=== PATIENT | male | born 1970 | race Caucasian/White ===

== ENCOUNTER 2016-11-24 06:17 | Day surgery (SDC) | payer BC, OTHER ==
[2016-11-19 08:43] VITALS: BMI 37.7
[~2016-11-24 06:17] MED LIST: LACTATED RINGERS 1,000 ML IV SCH
[2016-11-24 06:28] VITALS: RESP 18; TEMP 98
[2016-11-24] MEDS ORDERED: LACTATED RINGERS 1,000 ML IV ONE (06:35)
[2016-11-24] MEDS ORDERED: LIDOCAINE 1% 20 ML VIAL (10MG/ML) FOR IV START INTRADERMA ONE (06:35)
[2016-11-24] MEDS ORDERED: MIDAZOLAM 2 MG/2 ML VIAL ONE (07:12)
[2016-11-24] MEDS ORDERED: TRIAMCINOLONE ACETONIDE 40 MG/ML 1 ML VIAL ONE (07:12)
[2016-11-24] MEDS ORDERED: fentaNYL (PF) 50 MCG/ML 2 ML AMP ONE (07:12)
[2016-11-24] MEDS ORDERED: BUPIVACAINE (PF) 0.75% 30 ML VIAL ONE (07:12)
--- NOTE | 2016-11-24 07:27 | P.PCN ---
Date of Procedure: 11/24/16 Procedure(s) Performed: Pre-operative diagnosis: 1- Bilateral occipital neuralgea Post Operative Diagnosis 1- Bilateral occipital neuralgea Procedure: 1- Bilateral occipital nerve block ANESTHESIA: Conscious sedation with Versed 2 mg and fentanyl 100 micrograms EBL: Minimal PROCEDURE INDICATION: The patient with neck pain and headache secondary to occipital neuralgea unresponsive to conservative treatments. PROCEDURE DESCRIPTION / TECHNIQUE: The patient was seen and identified in the preoperative area. Risks, benefits, complications, and alternatives were discussed with the patient, the patient agreed to proceed with the procedure and signed the consent. IV was started. Vital signs remained stable throughout the procedure. Patient was taken to the OR and time out was completed. The patient was placed in the pron (sitting ) position on the procedure table. A pillow was placed under the patients chest to increase the cervical interlaminar space. The cervical area and right occiptial area were prepped with alcohol swab. Critical pause was taken. Vital signs were closely monitored during the procedure. Conscious sedation was used during the procedure to decrease patients anxiety. The right occiptal ridge was palpated and was then accessed with a 25 G needle. Then after negative aspiration, 6 ml of the block solution containing 6 ml of PF Buvicaine 0.75% and Kenalog 40 mg was injected. Needle was withdrawn intact. Then the same procedure was repeated on the left side and related the left occipital nerve block, after negative aspiration 6 mL of the block solution containing ropivacaine 0.75% and 40 mg of Kenalog injected after negative aspiration Patient tolerated procedure well. No acute complications. And he will follow up in the pain clinic in a few weeks to repeat the injection
[2016-11-24 07:58] VITALS: BP 109/63; PULSE 62
[2016-11-24] MEDS ORDERED: IV FLUID CONTINUATION 1,000 ML IV ONE (08:04)
== END 2016-11-24 08:05 | disposition home or self-care (01) ==
LOC: ORPAIN 06:17
PROVIDERS: ATTEND Specialist
DX: M54.81 Occipital neuralgia (principal); Z88.1 Allergy status to other antibiotic agents
CPT/HCPCS: 64405; J2250; J3301; J3010

== ENCOUNTER 2016-11-29 08:40 | Emergency (ER) | payer BC, OTHER ==
[2016-11-29 08:46] VITALS: RESP 18
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
--- NOTE | 2016-11-29 09:27 | XR ---
EXAMINATION TYPE: XR chest 2V DATE OF EXAM: 11/29/2016 9:19 AM COMPARISON: None HISTORY: 46-year-old male with a chest pain TECHNIQUE: PA and lateral views FINDINGS: The cardiomediastinal silhouette, aorta, and pulmonary vasculature are within normal limits. Some min imal strandy basilar atelectasis. Otherwise, lungs and pleural spaces are clear. IMPRESSION: No acute cardiopulmonary process.
[2016-11-29 09:28] LABS: Basophils # (A) 0.1 k/uL (0-0.2); Basophils % (A) 1 %; CHCM 36.2; Eosinophils # (A) 0.1 k/uL (0-0.7); Eosinophils % (A) 1 %; HCT 47.5 % (39.0-53.0); HDW 3.19; HGB 16.4 gm/dL (13.0-17.5); Luc # (Auto) 0.14; Luc % (Auto) 1; Lymphocytes # (A) 1.7 k/uL (1.0-4.8); Lymphocytes % (A) 16 %; MCH 27.9 pg (25.0-35.0); MCHC 34.6 g/dL (31.0-37.0); MCV 80.7 fL (80.0-100.0); Mean Platelet Volume 7.2; Monocytes # (A) 0.5 k/uL (0-1.0); Monocytes % (A) 5 %; Neutrophils % (A) 76 %; RBC 5.89 m/uL (4.30-5.90); RDW 13.8 % (11.5-15.5); WBC 10.5 k/uL (3.8-10.6); WBC (Perox) 11.06
[2016-11-29 09:40] LABS: ALT 76 U/L (21-72); AST 20 U/L (17-59); Alkaline Phosphatase 71 U/L (38-126); Anion Gap 13 mmol/L; Blood Urea Nitrogen 14 mg/dL (9-20); Calcium 9.2 mg/dL (8.4-10.2); Carbon Dioxide 23 mmol/L (22-30); Chloride 106 mmol/L (98-107); Glucose 98 mg/dL (74-99); Magnesium 2.1 mg/dL (1.6-2.3); Non-African American GFR(MDRD) >60 (>60 ml/min/1.73 sqM); Partial Thromboplastin Time 26.1 sec (22.0-30.0); Potassium 4.2 mmol/L (3.5-5.1); Prothrombin Time 10.2 sec (9.0-12.0); Sodium 142 mmol/L (137-145); Total Bilirubin 0.7 mg/dL (0.2-1.3); Total Protein 7.7 g/dL (6.3-8.2)
[2016-11-29 09:55] LABS: Creatine Kinase 80 U/L (55-170)
[2016-11-29 10:08] LABS: Creatine Kinase MB 1.4 ng/mL (0.0-2.4); Troponin I <0.012 ng/mL (0.000-0.034)
[2016-11-29 10:23] VITALS: PULSE 52
[2016-11-29 11:06] VITALS: BP 123/58; TEMP 98.4
== END 2016-11-29 11:06 | disposition home or self-care (01) ==
LOC: EC 08:40
DX: R07.89 Other chest pain (principal); I10 Essential (primary) hypertension; M19.90 Unspecified osteoarthritis, unspecified site; Z79.899 Other long term (current) drug therapy; Z88.0 Allergy status to penicillin; Z87.891 Personal history of nicotine dependence
CPT/HCPCS: 36415; 71020; 80053; 82550; 82553; 83690; 83735; 83880; 84484; 85025; 85379; 85610; 85730; 93005; 99285

== ENCOUNTER → 2016-12-22 | Outpatient (CLI) | payer BC, OTHER ==
--- NOTE | 2016-12-22 09:43 | MR ---
EXAMINATION TYPE: MR cervical spine wo con DATE OF EXAM: 12/22/2016 7:14 AM COMPARISON: NONE HISTORY: 46-year-old male with chronic posttraumatic headaches TECHNIQUE: Multiplanar, multisequence images of the cervical spine were acquired. FINDINGS: No craniocervical junction abnormality, predental space widening, or prevertebral soft tissue swellin g. Straightening of the normal cervical lordosis with preserved alignment. Variable mild intervertebral disc desiccation from C2 through C7 levels and very mild posterior disc bulges. Additional mild scattered facet and uncovertebral joint degenerative change. Mild heterogeneity of marrow signal without suspicious bone marrow placement. At C2-C3, very mild facet degenerative change without significant spinal canal or foraminal stenosis. At C3-C4, mild facet degenerative change without significant spinal canal or foraminal stenosis. C4-C5, there is bilateral facet and uncovertebral joint arthropathy contributing to mild left greater than right neuroforaminal stenoses. No significant spinal canal stenosis. At C5-C6, there is mild posterior disc bulge and bilateral facet degenerative change. Minimal narrowi ng of the right-sided neuroforamen. No significant spinal canal stenosis. At C6-C7, mild facet degenerative change without significant spinal canal or neuroforaminal stenosis. At C7-T1, no significant spinal canal or neuroforaminal stenosis. There is normal course, caliber, and signal intensity of the cervical cord. No prevertebral or paravertebral soft tissue abnormality. IMPRESSION: 1. Mild multilevel degenerative disc disease from C2 through C7 levels characterized by mild disc kareen iccation and slight posterior disc bulging. 2. Additional scattered mild facet and uncovertebral joint arthropathy particularly at C4-C5 where th ere are mild left greater than right neuroforaminal stenoses. 3. No significant spinal canal stenosis. 4. Straightening of the normal cervical lordosis could be positional or secondary to muscle spasm.
== END | disposition home or self-care (01) ==
LOC: RADMRIMAIN 06:38
PROVIDERS: ATTEND Psychiatry & Neurology Neurology
DX: M99.71 Connective tissue and disc stenosis of intervertebral foramina of cervical region (principal); M50.21 Other cervical disc displacement, high cervical region; M50.31 Other cervical disc degeneration, high cervical region; M46.92 Unspecified inflammatory spondylopathy, cervical region
CPT/HCPCS: 72141

== ENCOUNTER 2017-01-10 06:19 | Day surgery (SDC) | payer BC, OTHER ==
[2017-01-06 08:28] VITALS: BMI 37.5
[2017-01-10] MEDS ORDERED: LIDOCAINE 1% 20 ML VIAL (10MG/ML) FOR IV START INTRADERMA ONE (06:22)
[2017-01-10 06:30] VITALS: TEMP 97.8
[2017-01-10] MEDS ORDERED: fentaNYL (PF) 50 MCG/ML 2 ML AMP ONE (07:15)
[2017-01-10] MEDS ORDERED: MIDAZOLAM 2 MG/2 ML VIAL ONE (07:15)
[2017-01-10] MEDS ORDERED: BUPIVACAINE (PF) 0.75% 30 ML VIAL ONE (07:15)
[2017-01-10] MEDS ORDERED: TRIAMCINOLONE ACETONIDE 40 MG/ML 1 ML VIAL ONE (07:15)
[2017-01-10] MEDS ORDERED: IV FLUID CONTINUATION 1,000 ML IV ONE (07:33)
--- NOTE | 2017-01-10 07:33 | P.PCN ---
Date of Procedure: 01/10/17 Procedure(s) Performed: Pre-operative diagnosis: 1- Bilateral occipital neuralgea. 2-cervicogenic headache. 3- cervical spondylosis with cervical facet arthropathy without myelopathy. 4-cervical degenerative disc disease Post Operative Diagnosis 1- same as preoperative diagnosis. Procedure: 1- Bilateral occipital nerve block ANESTHESIA: Conscious sedation with Versed.2 mg and fentanyl 100 micrograms EBL: Minimal PROCEDURE INDICATION: The patient with neck pain and headache secondary to occipital neuralgea unresponsive to conservative treatments. PROCEDURE DESCRIPTION / TECHNIQUE: The patient was seen and identified in the preoperative area. Risks, benefits, complications, and alternatives were discussed with the patient, the patient agreed to proceed with the procedure and signed the consent. IV was started. Vital signs remained stable throughout the procedure. Patient was taken to the OR and time out was completed. The patient was placed in the sitting position on the procedure table. A pillow was placed under the patients chest to increase the cervical interlaminar space. The cervical area and right occiptial area were prepped with alcohol swab. Critical pause was taken. Vital signs were closely monitored during the procedure. Conscious sedation was used during the procedure to decrease patients anxiety. The right occiptal ridge was palpated and was then accessed with a 25 G needle. Then after negative aspiration, 6 ml of the block solution containing 6 ml of PF Buvicaine 0.75% and Kenalog 40 mg was injected. Needle was withdrawn intact. Then the same procedure was repeated on the left side and related the left occipital nerve block, after negative aspiration 6 mL of the block solution containing ropivacaine 0.75% and 40 mg of Kenalog injected after negative aspiration Patient tolerated procedure well. No acute complications. the pateints had a new MRI of the cervical spine and it showed that he had multilevel cervical degenerative/bulging disc disease, and cervical spondylosis with cervical facet arthropathy, patient will be seen in the clinic for evaluation after the injection today, we will consider doing diagnostic medial branch block if patient had no benefit from the occipital nerve block Patient tolerated procedure well. No acute complications.
[2017-01-10 07:35] VITALS: RESP 18
[2017-01-10 07:51] VITALS: BP 135/89; PULSE 62
== END 2017-01-10 08:05 | disposition home or self-care (01) ==
LOC: ORPAIN 06:19
PROVIDERS: ATTEND Specialist
DX: M54.81 Occipital neuralgia (principal); M47.812 Spondylosis without myelopathy or radiculopathy, cervical region; M46.92 Unspecified inflammatory spondylopathy, cervical region; M50.30 Other cervical disc degeneration, unspecified cervical region; Z88.1 Allergy status to other antibiotic agents
CPT/HCPCS: 64405; J2250; J3301; J3010

== ENCOUNTER → 2017-02-01 | Outpatient (CLI) | payer BC ==
[2017-02-01 14:59] VITALS: BP 152/94; PULSE 84; RESP 18; TEMP 98.7
--- NOTE | 2017-02-01 15:22 | P.PN ---
Progress Note - Text Patient returns for followup for chronic neck pain with radiation to head. Patient recently underwent ONB x 2, which provided little relief. Patient continues on no pain medications and is requesting some today. Patient denies adverse drug effects from medications. Today, pt denies new-onset weakness, bowel/bladder incontinence, or any other signs or symptoms of cauda equina syndrome. There are no signs of acute intoxication, and no indications of medication diversion or overuse. In addition to above, 13-point review of systems is also negative for chest pain , shortness of breath, changes in vision, changes in hearing, new onset weakness , abdominal pain, diarrhea, extreme fatigue, malaise, fever, skin changes, homicidal or suicidal ideation, or bowel or bladder incontinence. 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 cervical spondylosis without myelopathy 2. cervicogenic headache 3. chronic pain syndrome Plan: 1. Explanation: Opioid and psychological risk scores were reviewed. Diagnoses , prognoses, and multiple treatment options including but not limited to physical therapy, interventional therapies, adjuvant medical therapies, narcotic medication therapies, and surgery were discussed with the patient and all questions were answered to the patient's satisfaction. 2. Opioid agreement: Fioricet prescribed today 3. Counseling: The patient was counseled extensively on BODY MASS INDEX, EXERCISE. Specifically, the patient was instructed regarding the importance of weight control and exercise in the context of both chronic pain and overall health. 4. Procedures: cervical MBB 5. Consultations: physical therapy 6. Investigations: None 7. Medications: Fioricet #30 8. Disposition: f/u for procedure as scheduled PQRS measures: 1-Patient's medications are documented in the chart. 2-Tobacco use is negative 3-Patient has not had a pneumococcal vaccine. 4-Advanced care planning discussed, patient unable to give. 5-Opioid contract signed with the patient. 6-Pain positive, follow-up visit or procedure scheduled 7-Patient's blood pressure measured and documented, and patient will follow up with the primary care due to hypertension. 8-Patient's weight was measured, and body mass index ABOVE the normal limits, and counseling was done. Patient instructed to follow up with PCP. 9-Patient WAS NOT identified as an unhealthy alcohol user.
== END ==
LOC: PNWHC3 13:46
PROVIDERS: ATTEND Anesthesiology
DX: M47.812 Spondylosis without myelopathy or radiculopathy, cervical region (principal); G89.4 Chronic pain syndrome
CPT/HCPCS: 99211

== ENCOUNTER 2017-03-09 07:17 | Day surgery (SDC) | payer BC ==
[2017-03-08 09:02] VITALS: BMI 35.7
[2017-03-09 07:45] VITALS: RESP 16; TEMP 97.9
[2017-03-09] MEDS ORDERED: BUPIVACAINE (PF) 0.5% 30 ML VIAL ONE (08:50)
[2017-03-09] MEDS ORDERED: DEXAMETHASONE SOD PHOS (MDV) 100 MG/10 ML VIAL ONE (08:50)
[2017-03-09] MEDS ORDERED: MIDAZOLAM 2 MG/2 ML VIAL ONE (08:50)
[2017-03-09] MEDS ORDERED: fentaNYL (PF) 50 MCG/ML 2 ML AMP ONE (08:50)
--- NOTE | 2017-03-09 09:54 | FL ---
EXAMINATION TYPE: FL guided pain mgmt statistic DATE OF EXAM: 03/09/2017 9:40 AM HISTORY: Flouroscopy time 38 seconds of fluoroscopy provided. IMPRESSION: 1. Fluoroscopy time.
[2017-03-09 09:56] VITALS: BP 118/76; PULSE 66
[2017-03-09] MEDS ORDERED: IV FLUID CONTINUATION 1,000 ML IV ONE (10:10)
--- NOTE | 2017-03-09 11:51 | P.PCN ---
Date of Procedure: 03/09/17 Procedure(s) Performed: PREOPERATIVE DIAGNOSIS: 1-Cervical Spondylosis with Facet Arthropathy.without myelopathy. 2-cervicogenic headache. 3-occipital neuralgia POSTOPERATIVE DIAGNOSIS: Same as preoperative diagnoses PROCEDURES: Diagnostic bilateral C2-3 . C3-4, C4-5 medial branch blocks, with fluoroscopic guidance ANESTHESIA: Local with 1% lidocaine 5 ml ; IV sedation with Versed. 2 mg and fentanyl 100 g EBL: Minimal PROCEDURE INDICATION: The patient with neck pain secondary to cervical arthropathy unresponsive to more conservative treatments. PROCEDURE DESCRIPTION / TECHNIQUE: The patient was seen and identified in the preoperative area. Risks, benefits, complications, and alternatives were discussed with the patient, the patient agreed to proceed with the procedure and signed the consent. IV was started. Vital signs remained stable throughout the procedure. Patient was taken to the OR and time out was completed. The patient was placed in the prone position on the procedure table. A pillow was placed under the patients chest to increase the cervical interlaminar space. The cervical area was prepped and draped in the usual sterile fashion. Critical pause was taken. Vital signs were closely monitored during the procedure. Conscious sedation was used during the procedure to decrease patients anxiety. Using cross-table lateral fluoroscopy, the centroid of the trapezoid of right C2 , C3, C4 , was identified, marked, and localized with 1% lidocaine 1 ml at each level for skin and Sub Q infiltrations . Subsequently, a 22 G 3 spinal needle was advanced guided by fluoroscopy to the centroid of the trapezoid of Right C2 ,C3, C4 [place] tip position was confirmed at the centroid of the trapezoids of Right C2 , C3 , C4 , with anteroposterior fluoroscopy. Subsequently, 2 ml of preservative-free Bupivacaine 0.5% mixed with Dexamethasone 10 mg and half ml of the mixture was injected after negative aspiration for blood and CSF. [place] was then removed intact the same procedure was repeated at the left C2-3 ,C3-4, C4-5, levels. COMPLICATIONS: No acute complications. COMMENTS: DISPOSITION / PLANS: The patient was placed in a supine position and transferred to the recovery area in a stable condition for observation and was discharged from the recovery room after meeting discharge criteria. Home discharge instructions given to the patient by the staff. The patient was reexamined prior to discharge. The patient will schedule a follow up in the clinic in 2-4 weeks.
== END 2017-03-09 10:20 | disposition home or self-care (01) ==
LOC: ORPAIN 07:17
PROVIDERS: ATTEND Specialist
DX: M47.812 Spondylosis without myelopathy or radiculopathy, cervical region (principal); M46.92 Unspecified inflammatory spondylopathy, cervical region; R51 Headache; M54.81 Occipital neuralgia
CPT/HCPCS: 64490; 64491; 64492; 99152; 99153; J2250; J3010; J1100

== ENCOUNTER → 2017-03-16 | Outpatient (CLI) | payer BC, OTHER ==
[2017-03-16 13:51] VITALS: BP 143/88; PULSE 88; RESP 18; TEMP 97.7
--- NOTE | 2017-03-16 21:32 | P.PN ---
Subjective This is follow-up visit for this patient with a history of severe and chronic neck pain and headache , diagnosed with cervical spondylosis with cervical facet arthropathy without myelopathy , and cervicogenic headache and occipital neuralgia we have done interventional pain management injection,, diagnostic medial branch block cervical area at C2 3 /C3-4/ And C4 5 , and patient here today to discuss the results of the diagnostic medial branch block that it was done last week, she reported that his pain before the diagnostic block was 8/10 on a stalk to 0/10 after the block and the pain relief lasted 2 days Physical Examinations : 1-Constitutiona : Cooperative , not in acute distress . 2-HEENT : nech ; supple , no Lymphadenopathy , no Thyromegaly , normal thyroid size . eyes : no ptosis , no icterus, no photophobia . ENT : normal of hearing , normal oropharynx , no Thrush . 3- Respiratory : Chest clear to auscultations Bilaterally , no wheezing , no Rhonchi . 4- Cardiovascular : regular rate and rhythem , S1 , S2 , no S3 , no S4. 5- Gastrointestinal : abdomen soft no tenderness , bowel sounds positive all four quadrents , no organomegally . 6- Genitourinary : Defferred . 7- neurologic : Cranial nerve II to XII intact , no focal neurological deffecit . 8-psychatric : alert , oriented X 3 , appropriate affect , intact judgment and insight . 9-Lymphatic : no Lymphadenopathy . 10- musculoskeltal : exams of the cervical spine = motor strength normal bilateral upper extremities facet loading test cervical area positive. exams of the [place] spine = motor strength lower extremities ,thigh and legs .5/5 Assessment and plan = Chronic neck pain and headaches secondary to cervicogenic headache/ cervical spondylosis with cervical facet arthropathy without myelopathy and occipital neuralgia Patient had good result after the first diagnostic medial branch block cervical area and he will be good candidate to repeat the diagnostic block cervical area, procedure risk and benefits and alternatives discussed with the patient and he agreed with the preceding patient will be seen in the pain clinic we will do bilateral medial branch blocks cervical area C2 3/C3 4/C4 5 under fluoroscopy guidance Objective - Vital Signs Vital signs: Vital Signs Temp 97.7 F 03/16/17 13:42 Pulse 88 03/16/17 13:42 Resp 18 03/16/17 13:42 BP 143/88 03/16/17 13:42 Pulse Ox Intake & Output 03/16/17 03/16/17 03/17/17 06:59 18:59 06:59 Weight 107.501 kg
== END | disposition home or self-care (01) ==
LOC: PNWHC3 13:13
PROVIDERS: ATTEND Specialist
DX: M47.812 Spondylosis without myelopathy or radiculopathy, cervical region (principal); M46.82 Other specified inflammatory spondylopathies, cervical region; R42 Dizziness and giddiness
CPT/HCPCS: 99211

== ENCOUNTER 2017-04-05 08:19 | Day surgery (SDC) | payer BC, OTHER ==
[2017-03-31 09:43] VITALS: BMI 35.7
[2017-04-05] MEDS ORDERED: LIDOCAINE 1% 20 ML VIAL (10MG/ML) FOR IV START INTRADERMA ONE (09:07)
[2017-04-05 09:13] VITALS: RESP 16; TEMP 97.6
[2017-04-05] MEDS ORDERED: fentaNYL (PF) 50 MCG/ML 2 ML AMP ONE (09:28)
[2017-04-05] MEDS ORDERED: MIDAZOLAM 2 MG/2 ML VIAL ONE (09:28)
[2017-04-05] MEDS ORDERED: DEXAMETHASONE SOD PHOS (MDV) 100 MG/10 ML VIAL ONE (09:28)
[2017-04-05] MEDS ORDERED: BUPIVACAINE (PF) 0.5% 30 ML VIAL ONE (09:28)
--- NOTE | 2017-04-05 10:05 | P.PCN ---
Date of Procedure: 04/05/17 Preoperative Diagnosis: Postoperative Diagnosis: Procedure(s) Performed: PREOPERATIVE DIAGNOSIS: 1-Cervical Spondylosis with Facet Arthropathy.without myelopathy. 2-cervicogenic headache. 3-occipital neuralgia. POSTOPERATIVE DIAGNOSIS: same as pre op diagnosis PROCEDURES: Diagnostic Bilateral C2-3 , C3-4, C4-5 medial branch blocks, with fluoroscopic guidance #2nd ANESTHESIA: Local with 1% lidocaine 6 ml ; IV sedation with Versed.3 mg , Fentanyle 100 mcg EBL: Minimal PROCEDURE INDICATION: The patient with neck pain secondary to cervical arthropathy unresponsive to more conservative treatments. PROCEDURE DESCRIPTION / TECHNIQUE: The patient was seen and identified in the preoperative area. Risks, benefits, complications, and alternatives were discussed with the patient, the patient agreed to proceed with the procedure and signed the consent. IV was started. Vital signs remained stable throughout the procedure. Patient was taken to the OR and time out was completed. The patient was placed in the prone position on the procedure table. A pillow was placed under the patients chest to increase the cervical interlaminar space. The cervical area was prepped and draped in the usual sterile fashion. Critical pause was taken. Vital signs were closely monitored during the procedure. Conscious sedation was used during the procedure to decrease patients anxiety. Using cross-table lateral fluoroscopy, the centroid of the trapezoid of right C2 ,C3, C4 , was identified, marked, and localized with 1% lidocaine 1 ml at each level for skin and Sub Q infiltrations . Subsequently, a 25 G 3 spinal needle was advanced guided by fluoroscopy to the centroid of the trapezoid of Right C2 C3, C4 . [address] tip position was confirmed at the centroid of the trapezoids of Right C2 , C3 , C4 with anteroposterior fluoroscopy. Subsequently, 1.5 ml of preservative-free Bupivacaine 0.5% mixed with Dexamethasone 10 mg and half ml of the mixture was injected after negative aspiration for blood and CSF. [address] was then removed intact the same procedure was repeated at the left C2-3 , C3-4, C4-5 levels. COMPLICATIONS: No acute complications. COMMENTS: DISPOSITION / PLANS: The patient was placed in a supine position and transferred to the recovery area in a stable condition for observation and was discharged from the recovery room after meeting discharge criteria. Home discharge instructions given to the patient by the staff. The patient was reexamined prior to discharge. The patient will schedule a follow up in the clinic in 2-4 weeks. Implants: Indications for Procedure: Operative Findings: Description of Procedure:
[2017-04-05 10:28] VITALS: BP 124/78; PULSE 65
[2017-04-05] MEDS ORDERED: IV FLUID CONTINUATION 1,000 ML IV ONE (10:28)
--- NOTE | 2017-04-05 10:28 | FL ---
FLUOROSCOPY 17 seconds of fluoroscopy time were utilized during cervical facet block. 2 images document the proce dure.
== END 2017-04-05 10:35 | disposition home or self-care (01) ==
LOC: ORPAIN 08:19
PROVIDERS: ATTEND Specialist
DX: M46.92 Unspecified inflammatory spondylopathy, cervical region (principal); M54.81 Occipital neuralgia; M47.812 Spondylosis without myelopathy or radiculopathy, cervical region; Z88.0 Allergy status to penicillin
CPT/HCPCS: 64490; 64491; 64492; 99152; J2250; J3010; J1100

== ENCOUNTER 2017-04-25 09:15 | Day surgery (SDC) | payer BC, OTHER ==
[2017-04-20 08:33] VITALS: BMI 35.7
[2017-04-25 09:22] VITALS: RESP 16; TEMP 93.8
[2017-04-25] MEDS ORDERED: LIDOCAINE 1% 20 ML VIAL (10MG/ML) FOR IV START INTRADERMA ONE (09:26)
[2017-04-25] MEDS ORDERED: MIDAZOLAM 2 MG/2 ML VIAL ONE (10:10)
[2017-04-25] MEDS ORDERED: DEXAMETHASONE SOD PHOS (MDV) 100 MG/10 ML VIAL ONE (10:10)
[2017-04-25] MEDS ORDERED: fentaNYL (PF) 50 MCG/ML 2 ML AMP ONE (10:10)
--- NOTE | 2017-04-25 10:47 | P.PCN ---
Date of Procedure: 04/25/17 Preoperative Diagnosis: Postoperative Diagnosis: Procedure(s) Performed: Implants: Surgeon: Forest Coleman Pathology: none sent Condition: stable Disposition: PACU Indications for Procedure: Operative Findings: Description of Procedure: PREOPERATIVE DIAGNOSIS: Cervical spondylosis without myelopathy and facet arthropathy. POSTOPERATIVE DIAGNOSIS: Cervical spondylosis without myelopathy and facet arthropathy. PROCEDURES: Radiofrequency thermocoagulation, C3, C4, C5 medial branch, with fluoroscopic guidance, right side. ANESTHESIA: Local with 1% lidocaine; conscious sedation EBL: Minimal PROCEDURE INDICATION: The patient with neck pain secondary to cervical arthropathy who had more than 50% relief of her pain with previous diagnostic cervical medial branch block. No use of blood thinners. PROCEDURE DESCRIPTION / TECHNIQUE: The patient was seen and identified in the preoperative area. Risks, benefits, complications, and alternatives were discussed with the patient (with risks including but not limited to bleeding, infection, nerve damage, incomplete pain relief, and allergic reactions to medications), the patient agreed to proceed with the procedure and signed the informed consent after all questions were answered. IV was started. Vital signs remained stable throughout the procedure. Patient was taken to the OR and time out was completed. The patient was placed in the prone position on the procedure table. A pillow was placed under the patients chest to increase the cervical interlaminar space. The cervical area was prepped and draped in the usual sterile fashion. Critical pause was taken. Vital signs were closely monitored during the procedure. Conscious sedation was used during the procedure to decrease patients anxiety. Using cross-table lateral fluoroscopy, the centroid of the trapezoid of C2, C3, C4, C5 were identified, marked, and localized with 1% lidocaine. Subsequently, a 20 gauge 100-mm radiofrequency cannula with a 5-mm active tip was advanced guided by fluoroscopy to the centroid of the trapezoid of C3, C4, and C5. Needle tip position was confirmed at the centroid of the trapezoids of C3-5 with anteroposterior fluoroscopy. Each site then underwent sensory testing at 50 Hz and 0 to 1 volt and motor testing at 2 Hz and 0 to 3 volt with local stimulation, but no radicular symptoms down the arm. Thereafter C3, C4, C5 sites underwent radiofrequency thermocoagulation at 80 degrees celsius for 90 seconds after injecting 0.5 ml of PF lidocaine 1%. After thermocoagulation, 1 ml of the block solution containing Decadron 10 mg and 2 mL of preservative- free normal saline was injected at the C3, C4, and C5 levels after negative aspiration of CSF and blood and with no paresthesias. Cannulas were retracted while injecting lidocaine 1% until the needle is out. Skin was cleansed and bandages were applied. COMPLICATIONS: No acute complications. COMMENTS: DISPOSITION / PLANS: The patient was placed in a supine position and transferred to the recovery area in a stable condition for observation and was discharged from the recovery room after meeting discharge criteria. Home discharge instructions given to the patient by the staff. The patient was reexamined prior to discharge. The patient will schedule a left cervical RFA in 4-6 weeks.
--- NOTE | 2017-04-25 10:58 | FL ---
EXAMINATION TYPE: FL guided pain mgmt statistic DATE OF EXAM: 04/25/2017 HISTORY: Pain RADIO FREQUENCY CERVICAL BLOCK. 37 SEC FL TIME.
[2017-04-25 11:30] VITALS: BP 128/85; PULSE 59
[2017-04-25] MEDS ORDERED: IV FLUID CONTINUATION 1,000 ML IV ONE (11:38)
== END 2017-04-25 11:37 | disposition home or self-care (01) ==
LOC: ORPAIN 09:15
PROVIDERS: ATTEND Anesthesiology
DX: M47.812 Spondylosis without myelopathy or radiculopathy, cervical region (principal); M46.92 Unspecified inflammatory spondylopathy, cervical region; I10 Essential (primary) hypertension; Z88.1 Allergy status to other antibiotic agents
CPT/HCPCS: 64633; 64634; 99152; 99153; J2250; J3010; J1100

== ENCOUNTER 2017-06-07 06:49 | Day surgery (SDC) | payer BC, OTHER ==
[2017-05-31 10:03] VITALS: BMI 36.0
[2017-06-07] MEDS ORDERED: LIDOCAINE 1% 20 ML VIAL (10MG/ML) FOR IV START INTRADERMA ONE (07:25)
[2017-06-07 07:27] VITALS: RESP 16; TEMP 97.8
[2017-06-07] MEDS ORDERED: IV FLUID CONTINUATION 1,000 ML IV ONE (08:24)
--- NOTE | 2017-06-07 08:24 | P.PCN ---
Date of Procedure: 06/07/17 Preoperative Diagnosis: Cervical spondylosis without myelopathy Cervicogenic headache Postoperative Diagnosis: Same as above Procedure(s) Performed: Left cervical medial branch radio frequency ablation under fluoroscopic guidance for levels C2, C3, third occipital nerve, and C4. Implants: Anesthesia: other (Moderate IV conscious sedation with fentanyl and Versed) Surgeon: Evelio Strickland Pathology: none sent Condition: stable Disposition: PACU Indications for Procedure: Operative Findings: Description of Procedure: The patient was seen in the preop holding area consent was obtained then he was brought into the procedure room and placed in prone position. Skin was prepped with ChloraPrep and draped in a sterile manner. Lidocaine 1% was used to numb the skin up at the target points that are chosen as follows: For the C2-C3 and C4 medial branches the target points were of the center of the trapezoid shaped articular pillars of C2, C3, C4 vertebra on the lateral view of fluoroscopy on the AP view of fluoroscopy the target points were the waist of these vertebra. For the third occipital nerve the target points were the center of the joint line between C2 and C3 on the superior inferior and the needle areas of this joint line. I used 100 millimeters in length, 20-gauge radiofrequency ablation needles with 10 mm of curved active tips. AP and lateral views of fluoroscopy were obtained to verify needle tip position then motor stimulation showed only local twitches of these needles with no radiation of twitching to the left upper extremity. Prepared solution of 3 MLS Marcaine 0.5% +5 mg of Decadron. I injection 0.5 MLS of the solution in each needle before starting radio frequency ablation for 90 seconds at 80C, and after the first session was done the needles were withdrawn by 1 or 2 mm and the bevels were turned 180 and another session of ablation was started for 90 seconds at 80C. Patient tolerated procedure well.
--- NOTE | 2017-06-07 08:27 | FL ---
EXAMINATION TYPE: FL guided pain mgmt statistic DATE OF EXAM: 06/07/2017 CLINICAL HISTORY: Neck pain. TECHNIQUE: Fluoroscopy. COMPARISON: None. FINDINGS: Fluoroscopic guidance was provided during pain relief procedure performed by Dr. Strickland . A total of 20 seconds of fluoroscopic time was utilized during the procedure and 3 spot images are acquired. Images acquired shows needle localization at several levels in the cervical spine. IMPRESSION: As Above.
[2017-06-07 08:41] VITALS: BP 108/65; PULSE 67
== END 2017-06-07 08:53 | disposition home or self-care (01) ==
LOC: ORPAIN 06:49
PROVIDERS: ATTEND Anesthesiology
DX: M47.812 Spondylosis without myelopathy or radiculopathy, cervical region (principal); Z88.0 Allergy status to penicillin
CPT/HCPCS: 99152; 99153; 64633; 64634; J2250; J1100; J3301

== ENCOUNTER 2021-02-13 06:00 | Inpatient (IN) | payer BC, OTHER ==
[2021-02-13] MEDS ORDERED: SODIUM CHLORIDE 0.9% 1,000 ML IV ONE (06:34)
[2021-02-13 07:13] LABS: Basophils % (A) 0 %; Eosinophils % (A) 0 %; HCT 42.8 % (39.0-53.0); HGB 15.8 gm/dL (13.0-17.5); Hyperchromasia Slight; Lymphocytes # (A) 0.4 k/uL (1.0-4.8); Lymphocytes % (A) 10 %; MCH 28.7 pg (25.0-35.0); MCHC 36.9 g/dL (31.0-37.0); MCV 77.8 fL (80.0-100.0); Mean Platelet Volume 7.6; Monocytes # (A) 0.2 k/uL (0-1.0); Monocytes % (A) 4 %; Neutrophils # (A) 3.7 k/uL (1.3-7.7); Neutrophils % (A) 84 %; Platelet Count 160 k/uL (150-450); RDW 13.1 % (11.5-15.5); WBC 4.4 k/uL (3.8-10.6)
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
[2021-02-13 07:24] LABS: ALT 56 U/L (4-49); AST 62 U/L (17-59); African American GFR (CKD) >90 (>60 ml/min/1.73 sqM); Albumin 3.6 g/dL (3.5-5.0); Alkaline Phosphatase 68 U/L (38-126); Anion Gap 10 mmol/L; Blood Urea Nitrogen 15 mg/dL (9-20); Calcium 8.3 mg/dL (8.4-10.2); Carbon Dioxide 26 mmol/L (22-30); Chloride 99 mmol/L (98-107); Glucose 121 mg/dL (74-99); LDH 1204 U/L (313-618); Magnesium 2.3 mg/dL (1.6-2.3); Non-African American GFR(CKD) >90 (>60 ml/min/1.73 sqM); Potassium 4.1 mmol/L (3.5-5.1); Sodium 135 mmol/L (137-145); Total Bilirubin 0.9 mg/dL (0.2-1.3); Total Protein 6.3 g/dL (6.3-8.2)
--- NOTE | 2021-02-13 07:35 | XR ---
EXAM: XR Chest, 1 View CLINICAL HISTORY: Reason: Suspected COVID-19 pneumonia TECHNIQUE: Frontal view of the chest. COMPARISON: 11/29/16 FINDINGS: Lungs: Patchy, peripheral airspace opacities seen throughout both lungs, most consistent with a multifocal pneumonia with high confidence features of Covid 19 infection. No definite pulmonary edema. Pleural space: Unremarkable. No pneumothorax. Heart: Unremarkable. No cardiomegaly. Mediastinum: No mediastinal widening or shift. Bones/joints: No acute osseous abnormality. IMPRESSION: Multifocal pneumonia with high confidence features of Covid 19 infection.
[2021-02-13 07:37] LABS: C Reactive Protein 178.8 mg/L (<10.0)
[2021-02-13 07:45] LABS: D-Dimer 0.56 mg/L FEU (<0.60); INR 0.9 (<1.2); Prothrombin Time 10.1 sec (9.0-12.0)
[2021-02-13] MEDS ORDERED: ACETAMINOPHEN TAB 325 MG TAB PO PRN (07:54)
[2021-02-13] MEDS ORDERED: ONDANSETRON 4 MG/2 ML VIAL IVP PRN (07:54)
[2021-02-13] MEDS ORDERED: NALOXONE 0.4 MG/ML 1 ML VIAL IV PRN (07:54)
[2021-02-13] MEDS: ASCORBIC ACID 500 MG TAB PO SCH ×2 (09:34→20:24)
[2021-02-13] MEDS: ZINC SULFATE 220 MG CAP PO SCH (09:34)
[2021-02-13] MEDS: DEXAMETHASONE SOD PHOSPHATE 10 MG/ML 1 ML VIAL IV SCH (09:35)
[2021-02-13] MEDS: SODIUM CHLORIDE 0.9% 1,000 ML IV SCH ×2 (09:36→20:25)
[2021-02-13] MEDS: ENOXAPARIN 40 MG/0.4 ML SYRINGE SQ SCH (09:37)
[2021-02-13] MEDS: CHOLECALCIFEROL 25 MCG (1000 IU) TABLET PO SCH (09:37)
[2021-02-13 14:05] LABS: Ferritin 1968.3 ng/mL (22.0-322.0)
[2021-02-13] MEDS ORDERED: REMDESIVIR 200 MG in SODIUM CHLORIDE 0.9% 250 ML IVPB ONE (17:30)
--- NOTE | 2021-02-14 08:27 | XR ---
EXAMINATION TYPE: XR chest 1V portable DATE OF EXAM: 02/14/2021 CLINICAL HISTORY: Difficulty breathing and covid progress study. TECHNIQUE: Single AP portable upright view of the chest is obtained. COMPARISON: Chest x-ray from one day earlier FINDINGS: Persistent low lung volumes and multifocal increased opacities. Cardiac silhouette size st able and upper limits of normal. Osseous structures are intact. IMPRESSION: Bilateral multifocal opacities consistent with covid-19 infection. No significant change from one day earlier.
[2021-02-14 09:20] LABS: C Reactive Protein 11.9 mg/dL (0.0-0.8)
[2021-02-14] MEDS: CHOLECALCIFEROL 25 MCG (1000 IU) TABLET PO SCH (09:27)
[2021-02-14] MEDS: ENOXAPARIN 40 MG/0.4 ML SYRINGE SQ SCH (09:27)
[2021-02-14] MEDS: DEXAMETHASONE SOD PHOSPHATE 10 MG/ML 1 ML VIAL IV SCH (09:27)
[2021-02-14] MEDS: ASCORBIC ACID 500 MG TAB PO SCH ×2 (09:27→21:15)
[2021-02-14] MEDS: ZINC SULFATE 220 MG CAP PO SCH (09:27)
[2021-02-14] MEDS: SODIUM CHLORIDE 0.9% 1,000 ML IV SCH ×2 (11:28→21:24)
[2021-02-14] MEDS ORDERED: TOCILIZUMAB 800 MG in SODIUM CHLORIDE 0.9% 60 ML IV ONE (16:00)
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
[2021-02-14] MEDS ORDERED: REMDESIVIR 100 MG in SODIUM CHLORIDE 0.9% 250 ML IVPB SCH (17:00)
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
[2021-02-15] MEDS: DEXAMETHASONE SOD PHOSPHATE 10 MG/ML 1 ML VIAL IV SCH (08:22)
[2021-02-15] MEDS: ASCORBIC ACID 500 MG TAB PO SCH ×2 (08:22→21:09)
[2021-02-15] MEDS: ENOXAPARIN 40 MG/0.4 ML SYRINGE SQ SCH (08:22)
[2021-02-15] MEDS: CHOLECALCIFEROL 25 MCG (1000 IU) TABLET PO SCH (08:22)
[2021-02-15] MEDS: ZINC SULFATE 220 MG CAP PO SCH (08:22)
[2021-02-15 15:01] LABS: Basophils % (A) 0 %; Eosinophils % (A) 0 %; HCT 43.6 % (39.0-53.0); HGB 14.9 gm/dL (13.0-17.5); Lymphocytes # (A) 0.3 k/uL (1.0-4.8); Lymphocytes % (A) 5 %; MCH 27.8 pg (25.0-35.0); MCHC 34.2 g/dL (31.0-37.0); MCV 81.2 fL (80.0-100.0); Mean Platelet Volume 8.1; Monocytes # (A) 0.2 k/uL (0-1.0); Monocytes % (A) 3 %; Neutrophils # (A) 4.6 k/uL (1.3-7.7); Neutrophils % (A) 91 %; Platelet Count 228 k/uL (150-450); RBC 5.37 m/uL (4.30-5.90); RDW 13.2 % (11.5-15.5)
[2021-02-15 15:10] LABS: African American GFR (CKD) >90 (>60 ml/min/1.73 sqM); Anion Gap 7 mmol/L; Blood Urea Nitrogen 19 mg/dL (9-20); Calcium 8.5 mg/dL (8.4-10.2); Carbon Dioxide 27 mmol/L (22-30); Chloride 103 mmol/L (98-107); Glucose 155 mg/dL (74-99); LDH 1191 U/L (313-618); Non-African American GFR(CKD) >90 (>60 ml/min/1.73 sqM); Sodium 137 mmol/L (137-145)
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
[2021-02-15] MEDS: SODIUM CHLORIDE 0.9% 1,000 ML IV SCH (21:18)
[2021-02-16] MEDS: SODIUM CHLORIDE 0.9% 1,000 ML IV SCH ×2 (03:58→15:00)
[2021-02-16] MEDS: ZINC SULFATE 220 MG CAP PO SCH (07:28)
[2021-02-16] MEDS: ENOXAPARIN 40 MG/0.4 ML SYRINGE SQ SCH (07:28)
[2021-02-16] MEDS: CHOLECALCIFEROL 25 MCG (1000 IU) TABLET PO SCH (07:28)
[2021-02-16] MEDS: DEXAMETHASONE SOD PHOSPHATE 10 MG/ML 1 ML VIAL IV SCH (07:29)
[2021-02-16] MEDS: ASCORBIC ACID 500 MG TAB PO SCH ×2 (07:29→20:08)
[2021-02-16 09:10] LABS: Basophils # (A) 0.01 X 10*3/uL (0.00-0.10); Basophils % (A) 0.2 %; Eosinophils # (A) 0.03 X 10*3/uL (0.04-0.35); Eosinophils % (A) 0.5 %; HCT 42.4 % (39.6-50.0); Lymphocytes # (A) 0.46 X 10*3/uL (0.90-5.00); Lymphocytes % (A) 7.1 %; MCH 27.1 pg (27.0-32.0); MCV 82.2 fL (80.0-97.0); Mean Platelet Volume 10.8 fL (9.5-12.2); Monocytes # (A) 0.17 X 10*3/uL (0.20-1.00); Monocytes % (A) 2.6 %; Neutrophils # (A) 5.74 X 10*3/uL (1.80-7.70); Neutrophils % (A) 88.8 %; Platelet Count 250 X 10*3/uL (140-440); RBC 5.16 X 10*6/uL (4.40-5.60); RDW 13.1 % (11.5-14.5); WBC 6.46 X 10*3/uL (4.50-10.00)
[2021-02-16 10:49] LABS: African American GFR (CKD) 128.4 (60.0-200.0); Anion Gap 7.6 mmol/L (4.00-12.00); BUN/Creat Ratio 27.14 Ratio (12.00-20.00); Carbon Dioxide 25.4 mmol/L (21.6-31.8); Non-African American GFR(CKD) 110.8 (60.0-200.0); Potassium 4.4 mmol/L (3.5-5.5)
--- NOTE | 2021-02-16 14:44 | P.PN ---
Subjective Progress Note Date: 02/16/21 Principal diagnosis: Acute hypoxemic respiratory failure. On today's evaluation of 02/15/2021, the patient is doing well. He feels that he is breathing easier and he is less short of breath. He remains on 15 L nasal cannula along with 100% on a beta facemasks. He is sleeping on his side was dario position. Is difficult for him to sleep in a prone by the position. No fever. No nausea. No vomiting. Tolerating diet. Sitting up on a recliner. He completed treatment with Tocilizumab and he remains on Decadron. Inflammatory markers are all improving. On today's blood work, the patient's d- dimer is at 0.55, LDH level was down to 413 currently is at 1191 and the CRP level is down to 11.9. Electrolytes are within normal limits. The patient remains on Decadron 6 mg IV every 24 hours. Patient is also being hydrated IV fluids at the rate of 75 mL an hour. No abnormalities in the blood work or electrolytes. Progress note dated 02/16/2021. A 50-year-old male, with history of acute COVID 19 pneumonia. Currently, the patient's getting saline at 75 mL an hour. The patient currently on high flow nasal O2 at 15 L/m. The patient did get TOCI, on February 14, and 1 unit, convalescent plasma. Currently, the patient seemed be doing reasonably well. The patient is having shortness of breath, but he denies any fever, chills, cough, phlegm production, or chest pain. White count 6.46, hemoglobin 14, hematocrit 42.4, but the count 250,000. Sodium 136, potassium 4.4, chlorides 103, CO2 25, anion gap 8, BUN 19, creatinine 0.7. LDH was 447. C-reactive protein was 11.9. Procalcitonin level was 0.07. Chest x-ray showed diffuse bilateral infiltrates. Objective - Vital Signs Vital signs: Vital Signs Temp 97.7 F 02/16/21 08:00 Pulse 56 L 02/16/21 08:00 Resp 20 02/16/21 08:00 BP 113/68 02/16/21 08:00 Pulse Ox 95 02/16/21 08:00 Intake & Output 02/15/21 02/16/21 02/16/21 18:59 06:59 18:59 Intake Total 700 440 Output Total 350 150 200 Balance 350 -150 240 Intake: Oral 700 440 Output: Urine 350 150 200 Other: Voiding Method Urinal Urinal Urinal # Voids 1 - Exam No acute distress, oriented 3. Patient currently on 15 L high flow nasal O2. Saturations are 95%. HEENT examination is grossly unremarkable. Neck supple. Full range of motion. No adenopathy thyromegaly or neck vein distention. Cardiovascular examination reveals regular rhythm rate. S1-S2 normal. No S3 or S4. No discernible murmur noted. Heart rate 56 bpm. Lungs reveal bilateral rhonchi, and bibasilar crackles. Breath sounds equal bilaterally. There are no wheezes. Abdomen soft bowel sounds are heard. No masses or tenderness. Extremities are intact. No cyanosis clubbing or edema. Skin is without rash or lesion. Neurologic examination is brief but nonfocal. - Labs CBC & Chem 7: 02/16/21 05:14 02/16/21 05:14 Labs: Abnormal Lab Results - Last 24 Hours (Table) 02/15/21 02/15/21 02/16/21 Range/Units 13:32 13:32 05:14 Immature Gran # 0.05 H (0.00-0.04) X 10*3/uL Lymphocytes # 0.3 L 0.46 L (1.0-4.8) k/uL Monocytes # 0.17 L (0.20-1.00) X 10*3/uL Eosinophils # 0.03 L (0.04-0.35) X 10*3/uL BUN/Creatinine Ratio (12.00-20.00) Ratio Glucose 155 H (74-99) mg/dL Calcium (8.7-10.3) mg/dL Lactate Dehydrogenase 1191 H (313-618) U/L 02/16/21 Range/Units 05:14 Immature Gran # (0.00-0.04) X 10*3/uL Lymphocytes # (1.0-4.8) k/uL Monocytes # (0.20-1.00) X 10*3/uL Eosinophils # (0.04-0.35) X 10*3/uL BUN/Creatinine Ratio 27.14 H (12.00-20.00) Ratio Glucose (74-99) mg/dL Calcium 8.0 L (8.7-10.3) mg/dL Lactate Dehydrogenase 447 H (313-618) U/L Microbiology - Last 24 Hours (Table) 02/13/21 06:54 Blood Culture - Preliminary Blood No Growth after 72 hours 02/13/21 06:50 Blood Culture - Preliminary Blood No Growth after 72 hours Assessment and Plan Assessment: Acute hypoxemic respiratory failure secondary to COVID 19 pneumonia/pneumonitis. Obesity. History of hypertension. Hyperlipidemia. Osteoarthritis. DJD. Occipital neuralgia. Plan: Plan dated 02/16/2021. The patient remains on saline at 75 mL an hour, and high flow nasal O2 at 15 L. The patient did get 1 unit convalescent plasma, and also TOCI, on February 14. The patient continues on Decadron, and Lovenox. In addition, the patient continues on vitamin supplementation including vitamin C, vitamin D3, and zinc. Additional recommendations and suggestions are forthcoming. Prognosis is guarded. Time with Patient: Less than 30
--- NOTE | 2021-02-16 21:30 | P.PN ---
Subjective Progress Note Date: 02/16/21 Principal diagnosis: The patient is here essentially for Covid 19 pneumonia. The patient has been slowly improving. But complains of significant fatigue. The patient states no nausea or vomiting. No fever yesterday. No other voiding difficulties. Appreciate multiple consultants input. Objective - Vital Signs Vital signs: Vital Signs Temp 98.0 F 02/16/21 19:09 Pulse 71 02/16/21 19:09 Resp 19 02/16/21 19:09 BP 128/69 02/16/21 19:09 Pulse Ox 95 02/16/21 19:09 Intake & Output 02/16/21 02/16/21 02/17/21 06:59 18:59 06:59 Intake Total 440 Output Total 150 200 Balance -150 240 Intake: Oral 440 Output: Urine 150 200 Other: Voiding Method Urinal Urinal # Voids 2 - Constitutional General appearance: Present: average body habitus - EENT Eyes: Absent: abnormal pupil - Respiratory Respiratory: bilateral: diminished - Cardiovascular Rhythm: regular Heart sounds: normal: S1, S2 Abnormal Heart Sounds: Absent: S3 Gallop - Gastrointestinal General gastrointestinal: Present: soft. Absent: tenderness - Psychiatric Psychiatric: Present: A&O x's 3. Absent: appropriate affect - Labs CBC & Chem 7: 02/16/21 05:14 02/16/21 05:14 Labs: Abnormal Lab Results - Last 24 Hours (Table) 02/16/21 02/16/21 Range/Units 05:14 05:14 Immature Gran # 0.05 H (0.00-0.04) X 10*3/uL Lymphocytes # 0.46 L (0.90-5.00) X 10*3/uL Monocytes # 0.17 L (0.20-1.00) X 10*3/uL Eosinophils # 0.03 L (0.04-0.35) X 10*3/uL BUN/Creatinine Ratio 27.14 H (12.00-20.00) Ratio Calcium 8.0 L (8.7-10.3) mg/dL Lactate Dehydrogenase 447 H (120-246) U/L Microbiology - Last 24 Hours (Table) 02/13/21 06:54 Blood Culture - Preliminary Blood No Growth after 72 hours 02/13/21 06:50 Blood Culture - Preliminary Blood No Growth after 72 hours Assessment and Plan (1) Pneumonia due to COVID-19 virus Current Visit: Yes Status: Acute Code(s): U07.1 - COVID-19; J12.82 - Pneumonia due to coronavirus disease 2018 SNOMED Code(s): 775482889957215033 Plan: He seems to have appropriate trajectory for recovery. I appreciate pulmonology input. Check CBC and CMP in a.m. Appropriate protocol for Covid pneumonia. Time with Patient: Greater than 30
[2021-02-17] MEDS: SODIUM CHLORIDE 0.9% 1,000 ML IV SCH ×2 (06:01→21:50)
[2021-02-17] MEDS: DEXAMETHASONE SOD PHOSPHATE 10 MG/ML 1 ML VIAL IV SCH (08:26)
[2021-02-17] MEDS: CHOLECALCIFEROL 25 MCG (1000 IU) TABLET PO SCH (08:26)
[2021-02-17] MEDS: ZINC SULFATE 220 MG CAP PO SCH (08:26)
[2021-02-17] MEDS: ASCORBIC ACID 500 MG TAB PO SCH ×2 (08:26→21:45)
[2021-02-17] MEDS: ENOXAPARIN 40 MG/0.4 ML SYRINGE SQ SCH (08:26)
--- NOTE | 2021-02-17 14:19 | P.PN ---
Subjective Progress Note Date: 02/17/21 Principal diagnosis: Acute hypoxemic respiratory failure. On today's evaluation of 02/15/2021, the patient is doing well. He feels that he is breathing easier and he is less short of breath. He remains on 15 L nasal cannula along with 100% on a beta facemasks. He is sleeping on his side was dario position. Is difficult for him to sleep in a prone by the position. No fever. No nausea. No vomiting. Tolerating diet. Sitting up on a recliner. He completed treatment with Tocilizumab and he remains on Decadron. Inflammatory markers are all improving. On today's blood work, the patient's d- dimer is at 0.55, LDH level was down to 413 currently is at 1191 and the CRP level is down to 11.9. Electrolytes are within normal limits. The patient remains on Decadron 6 mg IV every 24 hours. Patient is also being hydrated IV fluids at the rate of 75 mL an hour. No abnormalities in the blood work or electrolytes. Progress note dated 02/16/2021. A 50-year-old male, with history of acute COVID 19 pneumonia. Currently, the patient's getting saline at 75 mL an hour. The patient currently on high flow nasal O2 at 15 L/m. The patient did get TOCI, on February 14, and 1 unit, convalescent plasma. Currently, the patient seemed be doing reasonably well. The patient is having shortness of breath, but he denies any fever, chills, cough, phlegm production, or chest pain. White count 6.46, hemoglobin 14, hematocrit 42.4, but the count 250,000. Sodium 136, potassium 4.4, chlorides 103, CO2 25, anion gap 8, BUN 19, creatinine 0.7. LDH was 447. C-reactive protein was 11.9. Procalcitonin level was 0.07. Chest x-ray showed diffuse bilateral infiltrates. Progress note dated 02/17/2021. 50-year-old male, with a diagnosis of acute COVID 19 pneumonia, and hypoxemic respiratory failure. The patient's getting saline at 20 mL an hour. He's currently on 15 L high flow nasal cannula. The patient does feel like he is getting better. The patient did receive TOCI on February 14, and 1 unit of convalescent plasma. There are no new lab data today. Lab from February 16 are reviewed. Also, his medications are reviewed. Everything appears to be appropriate. Objective - Vital Signs Vital signs: Vital Signs Temp 97.6 F 02/17/21 08:00 Pulse 69 02/17/21 08:00 Resp 20 02/17/21 08:38 BP 122/76 02/17/21 08:00 Pulse Ox 92 L 02/17/21 08:38 Intake & Output 02/16/21 02/17/21 02/17/21 18:59 06:59 18:59 Intake Total 440 240 500 Output Total 200 450 475 Balance 240 -210 25 Intake: Oral 440 240 500 Output: Urine 200 450 475 Other: Voiding Method Urinal Urinal # Voids 2 2 - Exam No acute distress, oriented 3. Patient currently on 15 L high flow nasal O2. Saturations are 92%. HEENT examination is grossly unremarkable. Neck supple. Full range of motion. No adenopathy thyromegaly or neck vein distention. Cardiovascular examination reveals regular rhythm rate. S1-S2 normal. No S3 or S4. No discernible murmur noted. Heart rate 69 bpm. Lungs reveal bilateral rhonchi, and bibasilar crackles. Breath sounds equal bilaterally. There are no wheezes. Abdomen soft bowel sounds are heard. No masses or tenderness. Extremities are intact. No cyanosis clubbing or edema. Skin is without rash or lesion. Neurologic examination is brief but nonfocal. - Labs CBC & Chem 7: 02/16/21 05:14 02/16/21 05:14 Labs: Microbiology - Last 24 Hours (Table) 02/13/21 06:50 Blood Culture - Preliminary Blood No Growth after 96 hours 02/13/21 06:54 Blood Culture - Preliminary Blood No Growth after 96 hours Assessment and Plan Assessment: Acute hypoxemic respiratory failure secondary to COVID 19 pneumonia/pneumonitis. Obesity. History of hypertension. Hyperlipidemia. Osteoarthritis. DJD. Occipital neuralgia. Plan: Plan dated 02/16/2021. The patient remains on saline at 75 mL an hour, and high flow nasal O2 at 15 L. The patient did get 1 unit convalescent plasma, and also TOCI, on February 14. The patient continues on Decadron, and Lovenox. In addition, the patient continues on vitamin supplementation including vitamin C, vitamin D3, and zinc. Additional recommendations and suggestions are forthcoming. Prognosis is guarded. Plan dated 02/17/2021. The patient remains on 15 L high flow nasal cannula. Saturations are in the low 90s to mid 90s. The patient feels like he is improved. The patient is receiving appropriate therapies including vitamin C, vitamin D3, and zinc. The patient also continues on Decadron and Lovenox. The patient also received 1 unit of convalescent plasma, and TOCI. We will continue to follow make recommendations were appropriate. Prognosis is guarded. Time with Patient: Less than 30
--- NOTE | 2021-02-17 22:54 | P.PN ---
Subjective Principal diagnosis: The patient is here essentially for Covid 19 pneumonia. The patient has been slowly improving. But complains of significant fatigue. The patient states no nausea or vomiting. No fever yesterday. No other voiding difficulties. Appreciate multiple consultants input. The patient has been resting comfortably but realizes still significant weakness due to hypoxia. Objective - Vital Signs Vital signs: Vital Signs Temp 97.9 F 02/17/21 20:03 Pulse 87 02/17/21 20:03 Resp 22 02/17/21 20:03 BP 139/87 02/17/21 20:03 Pulse Ox 85 L 02/17/21 20:03 Intake & Output 02/17/21 02/17/21 02/18/21 06:59 18:59 06:59 Intake Total 240 500 Output Total 450 475 Balance -210 25 Intake: Oral 240 500 Output: Urine 450 475 Other: Voiding Method Urinal Urinal # Voids 2 1 1 - Constitutional General appearance: Present: mild distress - EENT Eyes: Present: dentition normal. Absent: abnormal pupil, scleral icterus - Respiratory Respiratory: bilateral: diminished - Cardiovascular Rhythm: regular Heart sounds: normal: S1 Abnormal Heart Sounds: Absent: S3 Gallop - Gastrointestinal General gastrointestinal: Present: soft. Absent: tenderness - Musculoskeletal Musculoskeletal: Present: generalized weakness - Psychiatric Psychiatric: Present: A&O x's 3, appropriate affect - Labs CBC & Chem 7: 02/16/21 05:14 02/16/21 05:14 Labs: Microbiology - Last 24 Hours (Table) 02/13/21 06:50 Blood Culture - Preliminary Blood No Growth after 96 hours 02/13/21 06:54 Blood Culture - Preliminary Blood No Growth after 96 hours Assessment and Plan (1) Pneumonia due to COVID-19 virus Current Visit: Yes Status: Acute Code(s): U07.1 - COVID-19; J12.82 - Pneumonia due to coronavirus disease 2019 SNOMED Code(s): 816739786142394500 Plan: He seems to have appropriate trajectory for recovery. I appreciate pulmonology input. Check CBC and CMP in a.m. Appropriate protocol for Covid pneumonia.
[2021-02-17] MEDS: ZOLPIDEM 5 MG TAB PO PRN (22:56)
[2021-02-18] MEDS: ASCORBIC ACID 500 MG TAB PO SCH ×2 (07:30→20:16)
[2021-02-18] MEDS: ZINC SULFATE 220 MG CAP PO SCH (07:30)
[2021-02-18] MEDS: ENOXAPARIN 40 MG/0.4 ML SYRINGE SQ SCH (07:30)
[2021-02-18] MEDS: CHOLECALCIFEROL 25 MCG (1000 IU) TABLET PO SCH (07:30)
[2021-02-18] MEDS: DEXAMETHASONE SOD PHOSPHATE 10 MG/ML 1 ML VIAL IV SCH (07:30)
[2021-02-18] MEDS: SODIUM CHLORIDE 0.9% 1,000 ML IV SCH ×2 (07:31→20:16)
--- NOTE | 2021-02-18 08:49 | P.PN ---
Subjective Principal diagnosis: The patient is here essentially for Covid 19 pneumonia. The patient has been slowly improving. But complains of significant fatigue. The patient states no nausea or vomiting. No fever yesterday. No other voiding difficulties. Appreciate multiple consultants input. The patient has been resting comfortably but realizes still significant weakness due to hypoxia. Objective - Vital Signs Vital signs: Vital Signs Temp 97.9 F 02/18/21 08:00 Pulse 77 02/18/21 08:00 Resp 20 02/18/21 08:00 BP 122/77 02/18/21 08:00 Pulse Ox 88 L 02/18/21 08:00 Intake & Output 02/17/21 02/18/21 02/18/21 18:59 06:59 18:59 Intake Total 500 Output Total 475 Balance 25 Intake: Oral 500 Output: Urine 475 Other: Voiding Method Urinal # Voids 1 2 - Constitutional General appearance: Present: average body habitus - EENT Eyes: Absent: abnormal pupil - Neck Neck: Absent: lymphadenopathy - Respiratory Respiratory: bilateral: diminished - Cardiovascular Rhythm: regular Heart sounds: normal: S1, S2 Abnormal Heart Sounds: Absent: S3 Gallop - Gastrointestinal General gastrointestinal: Present: soft. Absent: tenderness - Neurologic Neurologic: Absent: focal deficits - Labs CBC & Chem 7: 02/16/21 05:14 02/16/21 05:14 Labs: Microbiology - Last 24 Hours (Table) 02/13/21 06:50 Blood Culture - Preliminary Blood No Growth after 96 hours 02/13/21 06:54 Blood Culture - Preliminary Blood No Growth after 96 hours Assessment and Plan (1) Pneumonia due to COVID-19 virus Current Visit: Yes Status: Acute Code(s): U07.1 - COVID-19; J12.82 - Pneumonia due to coronavirus disease 2019 SNOMED Code(s): 065400367131264083 Plan: He seems to have appropriate trajectory for recovery. I appreciate pulmonology input. Check CBC and CMP in a.m. Appropriate protocol for Covid pneumonia. Prognosis is guarded due to the fact that his oxygen saturations still poor unless he has significant support.
--- NOTE | 2021-02-18 14:20 | P.PN ---
Subjective Progress Note Date: 02/18/21 Principal diagnosis: Acute hypoxemic respiratory failure. On today's evaluation of 02/15/2021, the patient is doing well. He feels that he is breathing easier and he is less short of breath. He remains on 15 L nasal cannula along with 100% on a beta facemasks. He is sleeping on his side was dario position. Is difficult for him to sleep in a prone by the position. No fever. No nausea. No vomiting. Tolerating diet. Sitting up on a recliner. He completed treatment with Tocilizumab and he remains on Decadron. Inflammatory markers are all improving. On today's blood work, the patient's d- dimer is at 0.55, LDH level was down to 413 currently is at 1191 and the CRP level is down to 11.9. Electrolytes are within normal limits. The patient remains on Decadron 6 mg IV every 24 hours. Patient is also being hydrated IV fluids at the rate of 75 mL an hour. No abnormalities in the blood work or electrolytes. Progress note dated 02/16/2021. A 50-year-old male, with history of acute COVID 19 pneumonia. Currently, the patient's getting saline at 75 mL an hour. The patient currently on high flow nasal O2 at 15 L/m. The patient did get TOCI, on February 14, and 1 unit, convalescent plasma. Currently, the patient seemed be doing reasonably well. The patient is having shortness of breath, but he denies any fever, chills, cough, phlegm production, or chest pain. White count 6.46, hemoglobin 14, hematocrit 42.4, but the count 250,000. Sodium 136, potassium 4.4, chlorides 103, CO2 25, anion gap 8, BUN 19, creatinine 0.7. LDH was 447. C-reactive protein was 11.9. Procalcitonin level was 0.07. Chest x-ray showed diffuse bilateral infiltrates. Progress note dated 02/17/2021. 50-year-old male, with a diagnosis of acute COVID 19 pneumonia, and hypoxemic respiratory failure. The patient's getting saline at 20 mL an hour. He's currently on 15 L high flow nasal cannula. The patient does feel like he is getting better. The patient did receive TOCI on [place] 17, and 1 unit of convalescent plasma. There are no new lab data today. Lab from February 16 are reviewed. Also, his medications are reviewed. Everything appears to be appropriate. Progress note dated 02/18/2021. 50-year-old male, with a diagnosis of hypoxemic respiratory failure secondary to COVID 19 pneumonia. The patient's oxygenation worsened overnight. Currently, he's on 15 L high flow nasal cannula, as well as a nonrebreather mask. He is getting saline at 20 mL an hour. He feels a bit more short of breath today than he did yesterday. He is sitting up in a chair by the bedside. The patient has had no new laboratory data. There is no recent chest x-ray. Currently, the patient's saturations between 88 and 93%. The patient does not have any conversational dyspnea, or use of accessory muscles. Objective - Vital Signs Vital signs: Vital Signs Temp 97.9 F 02/18/21 08:00 Pulse 77 02/18/21 08:00 Resp 20 02/18/21 08:00 BP 122/77 02/18/21 08:00 Pulse Ox 88 L 02/18/21 08:00 Intake & Output 02/17/21 02/18/21 02/18/21 18:59 06:59 18:59 Intake Total 500 Output Total 475 200 Balance 25 -200 Intake: Oral 500 Output: Urine 475 200 Other: Voiding Method Urinal # Voids 1 2 - Exam No acute distress, oriented 3. Patient currently on 15 L high flow nasal O2 and nonrebreather mask. Saturations are 88-93%. HEENT examination is grossly unremarkable. Neck supple. Full range of motion. No adenopathy thyromegaly or neck vein distention. Cardiovascular examination reveals regular rhythm rate. S1-S2 normal. No S3 or S4. No discernible murmur noted. Heart rate 77 bpm. Lungs reveal bilateral rhonchi, and bibasilar crackles. Breath sounds equal bilaterally. There are no wheezes. Exam is unchanged. Abdomen soft bowel sounds are heard. No masses or tenderness. Extremities are intact. No cyanosis clubbing or edema. Skin is without rash or lesion. Neurologic examination is brief but nonfocal. - Labs CBC & Chem 7: 02/16/21 05:14 02/16/21 05:14 Labs: Microbiology - Last 24 Hours (Table) 02/13/21 06:54 Blood Culture - Preliminary Blood No Growth after 120 hours 02/13/21 06:50 Blood Culture - Preliminary Blood No Growth after 120 hours Assessment and Plan Assessment: Acute hypoxemic respiratory failure secondary to COVID 19 pneumonia/pneumonitis. Obesity. History of hypertension. Hyperlipidemia. Osteoarthritis. DJD. Occipital neuralgia. Plan: Plan dated 02/16/2021. The patient remains on saline at 75 mL an hour, and high flow nasal O2 at 15 L. The patient did get 1 unit convalescent plasma, and also TOCI, on February 14. The patient continues on Decadron, and Lovenox. In addition, the patient continues on vitamin supplementation including vitamin C, vitamin D3, and zinc. Additional recommendations and suggestions are forthcoming. Prognosis is guarded. Plan dated 02/17/2021. The patient remains on 15 L high flow nasal cannula. Saturations are in the low 90s to mid 90s. The patient feels like he is improved. The patient is receiving appropriate therapies including vitamin C, vitamin D3, and zinc. The patient also continues on Decadron and Lovenox. The patient also received 1 unit of convalescent plasma, and TOCI. We will continue to follow make rec ommendations were appropriate. Prognosis is guarded. Plan dated 02/18/2021. The patient is currently on nonrebreather mask and 15 L high flow nasal O2. The patient does feel a bit more short of breath and he did yesterday. The patient remains on appropriate therapies including vitamin C, vitamin D3, and zinc. The patient is also on Decadron and Lovenox. The patient should have a repeat chest x-ray and inflammatory markers tomorrow. The patient has really received convalescent plasma, and TOCI. We will continue to follow along. Prognosis is guarded. Time with Patient: Less than 30
[2021-02-18] MEDS: ZOLPIDEM 5 MG TAB PO PRN (20:16)
--- NOTE | 2021-02-19 08:14 | XR ---
EXAMINATION TYPE: XR chest 1V portable DATE OF EXAM: 02/19/2021 COMPARISON: Chest x-ray 02/14/2021 HISTORY: Covid, shortness of breath TECHNIQUE: Single frontal view of the chest is obtained. FINDINGS: Bilateral airspace disease is again noted. No evident pneumothorax or pleural effusion. Ca rdiac mediastinal silhouette shows a similar appearance. IMPRESSION: Pneumonia has progressed.
[2021-02-19] MEDS: ENOXAPARIN 40 MG/0.4 ML SYRINGE SQ SCH (08:57)
[2021-02-19] MEDS: ZINC SULFATE 220 MG CAP PO SCH (08:57)
[2021-02-19] MEDS: ASCORBIC ACID 500 MG TAB PO SCH ×2 (08:57→19:58)
[2021-02-19] MEDS: DEXAMETHASONE SOD PHOSPHATE 10 MG/ML 1 ML VIAL IV SCH (09:00)
[2021-02-19] MEDS: CHOLECALCIFEROL 25 MCG (1000 IU) TABLET PO SCH (09:07)
[2021-02-19] MEDS: ALPRAZolam 0.5 MG TAB PO PRN (12:47)
--- NOTE | 2021-02-19 13:43 | P.PN ---
Subjective Progress Note Date: 02/19/21 Principal diagnosis: Acute hypoxemic respiratory failure. On today's evaluation of 02/15/2021, the patient is doing well. He feels that he is breathing easier and he is less short of breath. He remains on 15 L nasal cannula along with 100% on a beta facemasks. He is sleeping on his side was dario position. Is difficult for him to sleep in a prone by the position. No fever. No nausea. No vomiting. Tolerating diet. Sitting up on a recliner. He completed treatment with Tocilizumab and he remains on Decadron. Inflammatory markers are all improving. On today's blood work, the patient's d- dimer is at 0.55, LDH level was down to 413 currently is at 1191 and the CRP level is down to 11.9. Electrolytes are within normal limits. The patient remains on Decadron 6 mg IV every 24 hours. Patient is also being hydrated IV fluids at the rate of 75 mL an hour. No abnormalities in the blood work or electrolytes. Progress note dated 02/16/2021. A 50-year-old male, with history of acute COVID 19 pneumonia. Currently, the patient's getting saline at 75 mL an hour. The patient currently on high flow nasal O2 at 15 L/m. The patient did get TOCI, on February 14, and 1 unit, convalescent plasma. Currently, the patient seemed be doing reasonably well. The patient is having shortness of breath, but he denies any fever, chills, cough, phlegm production, or chest pain. White count 6.46, hemoglobin 14, hematocrit 42.4, but the count 250,000. Sodium 136, potassium 4.4, chlorides 103, CO2 25, anion gap 8, BUN 19, creatinine 0.7. LDH was 447. C-reactive protein was 11.9. Procalcitonin level was 0.07. Chest x-ray showed diffuse bilateral infiltrates. Progress note dated 02/17/2021. 50-year-old male, with a diagnosis of acute COVID 19 pneumonia, and hypoxemic respiratory failure. The patient's getting saline at 20 mL an hour. He's currently on 15 L high flow nasal cannula. The patient does feel like he is getting better. The patient did receive TOCI on [place] 17, and 1 unit of convalescent plasma. There are no new lab data today. Lab from February 16 are reviewed. Also, his medications are reviewed. Everything appears to be appropriate. Progress note dated 02/18/2021. 50-year-old male, with a diagnosis of hypoxemic respiratory failure secondary to COVID 19 pneumonia. The patient's oxygenation worsened overnight. Currently, he's on 15 L high flow nasal cannula, as well as a nonrebreather mask. He is getting saline at 20 mL an hour. He feels a bit more short of breath today than he did yesterday. He is sitting up in a chair by the bedside. The patient has had no new laboratory data. There is no recent chest x-ray. Currently, the patient's saturations between 88 and 93%. The patient does not have any conversational dyspnea, or use of accessory muscles. Progress note dated 02/19/2021. 50-year-old male, with a diagnosis of hypoxemic respiratory failure secondary to COVID 19 pneumonia. Today, he is on Vapotherm at 60 L/m, and 90% FiO2. He feels better on this then he was on the nonrebreather mask, and high flow nasal cannula. No new labs today. A chest x-ray done today shows infiltrates which have progressed. The patient has received all available therapies including convalescent plasma, and TOCI. He remains on vitamins, as well as Decadron, and Lovenox. The patient has been in the hospital now for about 6 days. Objective - Vital Signs Vital signs: Vital Signs Temp 97.5 F L 02/19/21 08:00 Pulse 93 02/19/21 08:00 Resp 20 02/19/21 08:00 BP 134/74 02/19/21 08:00 Pulse Ox 91 L 02/19/21 11:19 Intake & Output 02/18/21 02/19/21 02/19/21 18:59 06:59 18:59 Output Total 1150 300 Balance -1150 -300 Weight 105.233 kg Output: Urine 1150 300 Other: Voiding Method Urinal Urinal # Voids 4 3 - Exam No acute distress, oriented 3. Patient is currently on AIRVO, at 60 L/m and 90% FiO2. Saturations are in the low 90s. HEENT examination is grossly unremarkable. Neck supple. Full range of motion. No adenopathy thyromegaly or neck vein distention. Cardiovascular examination reveals regular rhythm rate. S1-S2 normal. No S3 or S4. No discernible murmur noted. Heart rate 93 bpm. Lungs reveal bilateral rhonchi, and bibasilar crackles. Breath sounds equal bilaterally. There are no wheezes. Exam is unchanged. Abdomen soft bowel sounds are heard. No masses or tenderness. Extremities are intact. No cyanosis clubbing or edema. Skin is without rash or lesion. Neurologic examination is brief but nonfocal. - Labs CBC & Chem 7: 02/16/21 05:14 02/16/21 05:14 Labs: Microbiology - Last 24 Hours (Table) 02/13/21 06:50 Blood Culture - Final Blood No Growth after 144 hours 02/13/21 06:54 Blood Culture - Final Blood No Growth after 144 hours Assessment and Plan Assessment: Acute hypoxemic respiratory failure secondary to COVID 19 pneumonia/pneumonitis. Obesity. History of hypertension. Hyperlipidemia. Osteoarthritis. DJD. Occipital neuralgia. Plan: Plan dated 02/16/2021. The patient remains on saline at 75 mL an hour, and high flow nasal O2 at 15 L. The patient did get 1 unit convalescent plasma, and also TOCI, on February 14. The patient continues on Decadron, and Lovenox. In addition, the patient continues on vitamin supplementation including vitamin C, vitamin D3, and zinc. Additional recommendations and suggestions are forthcoming. Prognosis is guarded. Plan dated 02/17/2021. The patient remains on 15 L high flow nasal cannula. Saturations are in the low 90s to mid 90s. The patient feels like he is improved. The patient is receiving appropriate therapies including vitamin C, vitamin D3, and zinc. The patient also continues on Decadron and Lovenox. The patient also received 1 unit of convalescent plasma, and TOCI. We will continue to follow make recommendations were appropriate. Prognosis is guarded. Plan dated 02/18/2021. The patient is currently on nonrebreather mask and 15 L high flow nasal O2. The patient does feel a bit more short of breath and he did yesterday. The patient remains on appropriate therapies including vitamin C, vitamin D3, and zinc. The patient is also on Decadron and Lovenox. The patient should have a repeat chest x-ray and inflammatory markers tomorrow. The patient has really received convalescent plasma, and TOCI. We will continue to follow along. Prognosis is guarded. Plan dated 02/19/2021. Currently, the patient is on AIRVO. He seems to be tolerating that better than the nonrebreather mask, and 15 L high flow nasal cannula. He feels more comfortable. His saturations in the low 90s. Unfortunately, his chest x-ray has worsened. Clinically though, he looks relatively stable and he does not appear to be air hungry. We will continue to follow and make recommendations were appropriate. Prognosis is guarded. Additional recommendations and sugges tions are forthcoming. Time with Patient: Less than 30
[2021-02-19] MEDS: SODIUM CHLORIDE 0.9% 1,000 ML IV SCH (17:47)
[2021-02-20] MEDS: SODIUM CHLORIDE 0.9% 1,000 ML IV SCH ×2 (01:42→13:24)
--- NOTE | 2021-02-20 08:15 | P.PN ---
Subjective Principal diagnosis: The patient is here essentially for Covid 19 pneumonia. The patient has been slowly improving. But complains of significant fatigue. The patient states no nausea or vomiting. No fever yesterday. No other voiding difficulties. Appreciate multiple consultants input. The patient has been resting comfortably but realizes still significant weakness due to hypoxia. Objective - Vital Signs Vital signs: Vital Signs Temp 98.5 F 02/20/21 03:19 Pulse 69 02/20/21 03:19 Resp 30 H 02/20/21 03:19 BP 118/73 02/20/21 03:19 Pulse Ox 88 L 02/20/21 06:05 Intake & Output 02/19/21 02/20/21 02/20/21 18:59 06:59 18:59 Intake Total 540 Output Total 300 800 Balance 240 -800 Weight 124.017 kg Intake: IV 300 Sodium Chloride 0.9% 1, 300 000 ml @ 75 mls/hr IV . [id number] [facility] Rx#:[id number] Oral 240 Output: Urine 300 800 Other: Voiding Method Urinal Urinal - Constitutional General appearance: Present: average body habitus - EENT Eyes: Absent: abnormal pupil - Neck Neck: Absent: lymphadenopathy - Respiratory Respiratory: bilateral: diminished - Cardiovascular Rhythm: regular Heart sounds: normal: S1, S2 Abnormal Heart Sounds: Absent: S3 Gallop - Gastrointestinal General gastrointestinal: Present: soft. Absent: tenderness - Psychiatric Psychiatric: Present: A&O x's 3, appropriate affect - Labs CBC & Chem 7: 02/16/21 05:14 02/16/21 05:14 Labs: Microbiology - Last 24 Hours (Table) 02/13/21 06:50 Blood Culture - Final Blood No Growth after 144 hours 02/13/21 06:54 Blood Culture - Final Blood No Growth after 144 hours Assessment and Plan (1) Pneumonia due to COVID-19 virus Current Visit: Yes Status: Acute Code(s): U07.1 - COVID-19; J12.82 - Pneumonia due to coronavirus disease 2019 SNOMED Code(s): 111426250268165116 Plan: He seems to have appropriate trajectory for recovery. I appreciate pulmonology input. Check CBC and CMP in a.m. Appropriate protocol for Covid pneumonia. Prognosis is guarded due to the fact that his oxygen saturations still poor un less he has significant support.
--- NOTE | 2021-02-20 08:17 | P.PN ---
Subjective Principal diagnosis: The patient is here essentially for Covid 19 pneumonia. The patient has been slowly improving. But complains of significant fatigue. The patient states no nausea or vomiting. No fever yesterday. No other voiding difficulties. Appreciate multiple consultants input. The patient has been resting comfortably but realizes still significant weakness due to hypoxia The patient has been transferred to third floor secondary to his hypoxia Objective - Vital Signs Vital signs: Vital Signs Temp 98.5 F 02/20/21 03:19 Pulse 69 02/20/21 03:19 Resp 30 H 02/20/21 03:19 BP 118/73 02/20/21 03:19 Pulse Ox 88 L 02/20/21 06:05 Intake & Output 02/19/21 02/20/21 02/20/21 18:59 06:59 18:59 Intake Total 540 Output Total 300 800 Balance 240 -800 Weight 124.017 kg Intake: IV 300 Sodium Chloride 0.9% 1, 300 000 ml @ 75 mls/hr IV . [id number] [facility] Rx#:[id number] Oral 240 Output: Urine 300 800 Other: Voiding Method Urinal Urinal - Constitutional General appearance: Present: average body habitus - EENT Eyes: Absent: abnormal pupil - Neck Neck: Absent: lymphadenopathy - Respiratory Respiratory: bilateral: diminished - Cardiovascular Rhythm: regular Heart sounds: normal: S1, S2 Abnormal Heart Sounds: Absent: S3 Gallop - Gastrointestinal General gastrointestinal: Present: soft. Absent: splenomegaly, tenderness - Labs CBC & Chem 7: 02/16/21 05:14 02/16/21 05:14 Labs: Microbiology - Last 24 Hours (Table) 02/13/21 06:50 Blood Culture - Final Blood No Growth after 144 hours 02/13/21 06:54 Blood Culture - Final Blood No Growth after 144 hours Assessment and Plan (1) Pneumonia due to COVID-19 virus Current Visit: Yes Status: Acute Code(s): U07.1 - COVID-19; J12.82 - Pneumonia due to coronavirus disease 2019 SNOMED Code(s): 327248981568683854 Plan: He seems to have appropriate trajectory for recovery. I appreciate pulmonology input. Check CBC and CMP in a.m. Appropriate protocol for Covid pneumonia. Prognosis is guarded due to the fact that his oxygen saturations still poor unless he has significant support. Prognosis is guarded. Dr. Humphrey's group will be covering for the weekend.
[2021-02-20] MEDS: ASCORBIC ACID 500 MG TAB PO SCH ×2 (08:27→20:35)
[2021-02-20] MEDS: CHOLECALCIFEROL 25 MCG (1000 IU) TABLET PO SCH (08:27)
[2021-02-20] MEDS: DEXAMETHASONE SOD PHOSPHATE 10 MG/ML 1 ML VIAL IV SCH (08:27)
[2021-02-20] MEDS: ZINC SULFATE 220 MG CAP PO SCH (08:27)
[2021-02-20] MEDS: ENOXAPARIN 40 MG/0.4 ML SYRINGE SQ SCH (08:27)
[2021-02-20] MEDS: ALPRAZolam 0.5 MG TAB PO PRN (15:45)
--- NOTE | 2021-02-20 17:19 | P.PN ---
Subjective Progress Note Date: 02/20/21 Principal diagnosis: Acute hypoxic respiratory failure secondary to COVID-19 pneumonia On today's evaluation of 02/15/2021, the patient is doing well. He feels that he is breathing easier and he is less short of breath. He remains on 15 L nasal cannula along with 100% on a beta facemasks. He is sleeping on his side was dario position. Is difficult for him to sleep in a prone by the position. No fever. No nausea. No vomiting. Tolerating diet. Sitting up on a recliner. He completed treatment with Tocilizumab and he remains on Decadron. Inflammatory markers are all improving. On today's blood work, the patient's d- dimer is at 0.55, LDH level was down to 413 currently is at 1191 and the CRP level is down to 11.9. Electrolytes are within normal limits. The patient remains on Decadron 6 mg IV every 24 hours. Patient is also being hydrated IV fluids at the rate of 75 mL an hour. No abnormalities in the blood work or electrolytes. Progress note dated 02/16/2021. A 50-year-old male, with history of acute COVID 19 pneumonia. Currently, the patient's getting saline at 75 mL an hour. The patient currently on high flow nasal O2 at 15 L/m. The patient did get TOCI, on February 14, and 1 unit, convalescent plasma. Currently, the patient seemed be doing reasonably well. The patient is having shortness of breath, but he denies any fever, chills, cough, phlegm production, or chest pain. White count 6.46, hemoglobin 14, hematocrit 42.4, but the count 250,000. Sodium 136, potassium 4.4, chlorides 103, CO2 25, anion gap 8, BUN 19, creatinine 0.7. LDH was 447. C-reactive protein was 11.9. Procalcitonin level was 0.07. Chest x-ray showed diffuse bi lateral infiltrates. Progress note dated 02/17/2021. 50-year-old male, with a diagnosis of acute COVID 19 pneumonia, and hypoxemic respiratory failure. The patient's getting saline at 20 mL an hour. He's currently on 15 L high flow nasal cannula. The patient does feel like he is getting better. The patient did receive TOCI on February 14, and 1 unit of convalescent plasma. There are no new lab data today. Lab from February 16 are reviewed. Also, his medications are reviewed. Everything appears to be appropriate. Progress note dated 02/18/2021. 50-year-old male, with a diagnosis of hypoxemic respiratory failure secondary to COVID 19 pneumonia. The patient's oxygenation worsened overnight. Currently, he's on 15 L high flow nasal cannula, as well as a nonrebreather mask. He is getting saline at 20 mL an hour. He feels a bit more short of breath today than he did yesterday. He is sitting up in a chair by the bedside. The patient has had no new laboratory data. There is no recent chest x-ray. Currently, the patient's saturations between 88 and 93%. The patient does not have any conversational dyspnea, or use of accessory muscles. Progress note dated 02/19/2021. 50-year-old male, with a diagnosis of hypoxemic respiratory failure secondary to COVID 19 pneumonia. Today, he is on Vapotherm at 60 L/m, and 90% FiO2. He feels better on this then he was on the nonrebreather mask, and high flow nasal cannula. No new labs today. A chest x-ray done today shows infiltrates which have progressed. The patient has received all available therapies including convalescent plasma, and TOCI. He remains on vitamins, as well as Decadron, and Lovenox. The patient has been in the hospital now for about 6 days. Reevaluated today on 02/20/2021, not a significant change noted in the last few days. Patient remains on high flow oxygen utilizing airvo with FiO2 of 90% and 60 L flow. O2 saturation is 93%. Patient cannot tell if there is a major improvement or not, he feels is about the same. May be a bit better but not worse. Patient did receive convalescent plasma and toci, he was beyond the window for REM. Remains on Decadron, Lovenox, and multivitamins. Patient has been in the hospital now for almost 7 days. No dramatic change since admission. ABC is relatively normal. Electrolytes and renal profile are normal. LDH is improving down to 447 today. C-reactive protein is 11.9, and his pro-calcitonin was minimal 0.07 Objective - Vital Signs Vital signs: Vital Signs Temp 98.0 F 02/20/21 08:00 Pulse 84 02/20/21 12:00 Resp 30 H 02/20/21 03:19 BP 134/85 02/20/21 12:00 Pulse Ox 93 L 02/20/21 16:27 Intake & Output 02/19/21 02/20/21 02/20/21 18:59 06:59 18:59 Intake Total 540 358 Output Total 300 800 600 Balance 240 -800 -242 Weight 124.017 kg Intake: IV 300 Sodium Chloride 0.9% 1, 300 000 ml @ 75 mls/hr IV . [id number] [facility] Rx#:[id number] Oral 240 358 Output: Urine 300 800 600 Other: Voiding Method Urinal Urinal - Exam Physical Exam: Revealed 50-year-old white male on high flow oxygen via airvo, seems comfortable. Not in distress. HEENT:[Neck is supple.] [No neck masses.] [No thyromegaly.] [No JVD.] Chest: [Crackles at the bases. Cardiac Exam: [Normal S1 and S2, no S3 gallop, no murmur.] Abdomen: [Soft, nontender, no megaly, no rebound, no guarding, normal bowel sounds.] Extremities: [No clubbing, no edema, no cyanosis.] Neurological Exam: [No focal neurologic deficit.] Alert oriented 3. Musculoskeletal: No deformities noted limitation in range of motion. Psychiatric: Normal mood affect and normal mental status examination. - Labs CBC & Chem 7: 02/16/21 05:14 02/16/21 05:14 Assessment and Plan Assessment: Impression: Acute hypoxic respiratory failure secondary to COVID-19 pneumonia History of hypertension History of occipital neuralgia Degenerative joint disease Dyslipidemia Obesity Recommendation: Continue oxygen, high flow and titrate accordingly maintaining O2 saturation above 89%. Continue the COVID-19 cocktail. Continue Decadron. 6 mg IV push daily Continue zinc. Continue Lovenox 40 mg subcu daily Not quite ready for discharge planning. Continue to monitor inflammatory markers. Continue respiratory/droplet isolation. We will continue to follow. Patient did receive convalescent plasma and toci Time with Patient: Less than 30
[2021-02-20] MEDS: BENZONATATE 100 MG CAP PO PRN (20:35)
[2021-02-20] MEDS: guaiFENesin-DM 100-10MG/5ML 10 ML CUP PO PRN (20:35)
[2021-02-20] MEDS: ZOLPIDEM 5 MG TAB PO PRN (22:11)
[2021-02-21] MEDS: SODIUM CHLORIDE 0.9% 1,000 ML IV SCH ×2 (05:47→16:41)
[2021-02-21 09:18] LABS: HCT 43.4 % (39.0-53.0); HGB 15.3 gm/dL (13.0-17.5); MCH 28.2 pg (25.0-35.0); MCHC 35.2 g/dL (31.0-37.0); MCV 80.3 fL (80.0-100.0); Platelet Count 194 k/uL (150-450); RBC 5.41 m/uL (4.30-5.90); RDW 13.9 % (11.5-15.5); WBC 6.9 k/uL (3.8-10.6)
[2021-02-21 09:29] LABS: ALT 35 U/L (4-49); AST 45 U/L (17-59); African American GFR (CKD) >90 (>60 ml/min/1.73 sqM); Albumin 2.7 g/dL (3.5-5.0); Alkaline Phosphatase 65 U/L (38-126); Anion Gap 6 mmol/L; Blood Urea Nitrogen 17 mg/dL (9-20); Calcium 8.1 mg/dL (8.4-10.2); Carbon Dioxide 26 mmol/L (22-30); Chloride 102 mmol/L (98-107); Glucose 120 mg/dL (74-99); Non-African American GFR(CKD) >90 (>60 ml/min/1.73 sqM); Potassium 4.2 mmol/L (3.5-5.1); Sodium 134 mmol/L (137-145); Total Bilirubin 0.9 mg/dL (0.2-1.3); Total Protein 5.1 g/dL (6.3-8.2)
[2021-02-21] MEDS: BENZONATATE 100 MG CAP PO PRN ×3 (09:49→22:24)
[2021-02-21] MEDS: CHOLECALCIFEROL 25 MCG (1000 IU) TABLET PO SCH (09:49)
[2021-02-21] MEDS: DEXAMETHASONE SOD PHOSPHATE 10 MG/ML 1 ML VIAL IV SCH (09:49)
[2021-02-21] MEDS: ENOXAPARIN 40 MG/0.4 ML SYRINGE SQ SCH (09:49)
[2021-02-21] MEDS: ZINC SULFATE 220 MG CAP PO SCH (09:50)
[2021-02-21] MEDS: ASCORBIC ACID 500 MG TAB PO SCH ×2 (09:50→22:24)
[2021-02-21] MEDS: guaiFENesin-DM 100-10MG/5ML 10 ML CUP PO PRN ×2 (12:13→17:42)
--- NOTE | 2021-02-21 17:15 | P.PN ---
Subjective Progress Note Date: 02/21/21 Principal diagnosis: Acute hypoxic respiratory failure secondary to COVID-19 pneumonia On today's evaluation of 02/15/2021, the patient is doing well. He feels that he is breathing easier and he is less short of breath. He remains on 15 L nasal cannula along with 100% on a beta facemasks. He is sleeping on his side was dario position. Is difficult for him to sleep in a prone by the position. No fever. No nausea. No vomiting. Tolerating diet. Sitting up on a recliner. He completed treatment with Tocilizumab and he remains on Decadron. Inflammatory markers are all improving. On today's blood work, the patient's d- dimer is at 0.55, LDH level was down to 413 currently is at 1191 and the CRP level is down to 11.9. Electrolytes are within normal limits. The patient remains on Decadron 6 mg IV every 24 hours. Patient is also being hydrated IV fluids at the rate of 75 mL an hour. No abnormalities in the blood work or electrolytes. Progress note dated 02/16/2021. A 50-year-old male, with history of acute COVID 19 pneumonia. Currently, the patient's getting saline at 75 mL an hour. The patient currently on high flow nasal O2 at 15 L/m. The patient did get TOCI, on February 14, and 1 unit, convalescent plasma. Currently, the patient seemed be doing reasonably well. The patient is having shortness of breath, but he denies any fever, chills, cough, phlegm production, or chest pain. White count 6.46, hemoglobin 14, hematocrit 42.4, but the count 250,000. Sodium 136, potassium 4.4, chlorides 103, CO2 25, anion gap 8, BUN 19, creatinine 0.7. LDH was 447. C-reactive protein was 11.9. Procalcitonin level was 0.07. Chest x-ray showed diffuse bi lateral infiltrates. Progress note dated 02/17/2021. 50-year-old male, with a diagnosis of acute COVID 19 pneumonia, and hypoxemic respiratory failure. The patient's getting saline at 20 mL an hour. He's currently on 15 L high flow nasal cannula. The patient does feel like he is getting better. The patient did receive TOCI on February 14, and 1 unit of convalescent plasma. There are no new lab data today. Lab from February 16 are reviewed. Also, his medications are reviewed. Everything appears to be appropriate. Progress note dated 02/18/2021. 50-year-old male, with a diagnosis of hypoxemic respiratory failure secondary to COVID 19 pneumonia. The patient's oxygenation worsened overnight. Currently, he's on 15 L high flow nasal cannula, as well as a nonrebreather mask. He is getting saline at 20 mL an hour. He feels a bit more short of breath today than he did yesterday. He is sitting up in a chair by the bedside. The patient has had no new laboratory data. There is no recent chest x-ray. Currently, the patient's saturations between 88 and 93%. The patient does not have any conversational dyspnea, or use of accessory muscles. Progress note dated 02/19/2021. 50-year-old male, with a diagnosis of hypoxemic respiratory failure secondary to COVID 19 pneumonia. Today, he is on Vapotherm at 60 L/m, and 90% FiO2. He feels better on this then he was on the nonrebreather mask, and high flow nasal cannula. No new labs today. A chest x-ray done today shows infiltrates which have progressed. The patient has received all available therapies including convalescent plasma, and TOCI. He remains on vitamins, as well as Decadron, and Lovenox. The patient has been in the hospital now for about 6 days. Reevaluated today on 02/20/2021, not a significant change noted in the last few days. Patient remains on high flow oxygen utilizing airvo with FiO2 of 90% and 60 L flow. O2 saturation is 93%. Patient cannot tell if there is a major improvement or not, he feels is about the same. May be a bit better but not worse. Patient did receive convalescent plasma and toci, he was beyond the window for REM. Remains on Decadron, Lovenox, and multivitamins. Patient has been in the hospital now for almost 7 days. No dramatic change since admission. ABC is relatively normal. Electrolytes and renal profile are normal. LDH is improving down to 447 today. C-reactive protein is 11.9, and his pro-calcitonin was minimal 0.07 Patient was reevaluated today on 02/21/2021 remains on high flow oxygen, he is on 90% FiO2, 60 L flow, O2 sats is 94%, patient is feeling better. Overall pulmonary status remains marginal at best, clinically I believe there is some improvement. Patient did receive TOCI, and convalescent plasma, however he was out of the window for REM. Remains on Decadron Lovenox multivitamins. Overall pulmonary status is marginal at best. CBC is relatively normal lites are normal renal profile is normal pro-calcitonin level is 0.07 chest x-ray from 2 days ago continues to show bilateral airspace disease. With some progression. Slightly worse. Objective - Vital Signs Vital signs: Vital Signs Temp 98.2 F 02/21/21 03:41 Pulse 78 02/21/21 16:00 Resp 20 02/21/21 16:00 BP 114/72 02/21/21 16:00 Pulse Ox 94 L 02/21/21 16:00 Intake & Output 02/20/21 02/21/21 02/21/21 18:59 06:59 18:59 Intake Total 598 1155 Output Total 144 892 3885 Balance -227 -400 -320 Intake: Intake, IV Titration 675 Amount Sodium Chloride 0.9% 1, 675 000 ml @ 75 mls/hr IV . [id number] [facility] Rx#:[id number] Oral 598 480 Output: Urine 315 346 7678 Other: Voiding Method Urinal Urinal - Exam Physical Exam: Revealed 50-year-old white male on high flow oxygen via airvo, comfortable not in distress HEENT:[Neck is supple.] [No neck masses.] [No thyromegaly.] [No JVD.] Chest: [Crackles at the bases. Cardiac Exam: [Normal S1 and S2, no S3 gallop, no murmur.] Abdomen: [Soft, nontender, no megaly, no rebound, no guarding, normal bowel sounds.] Extremities: [No clubbing, no edema, no cyanosis.] Neurological Exam: [No focal neurologic deficit.] Alert oriented 3. Musculoskeletal: No deformities noted limitation in range of motion. Psychiatric: Normal mood affect and normal mental status examination. - Labs CBC & Chem 7: 02/21/21 08:47 02/21/21 08:47 Labs: Abnormal Lab Results - Last 24 Hours (Table) 02/21/21 Range/Units 08:47 Sodium 134 L (137-145) mmol/L Glucose 120 H (74-99) mg/dL Calcium 8.1 L (8.4-10.2) mg/dL Total Protein 5.1 L (6.3-8.2) g/dL Albumin 2.7 L (3.5-5.0) g/dL Assessment and Plan Assessment: Impression: Acute hypoxic respiratory failure secondary to COVID-19 pneumonia History of hypertension History of occipital neuralgia Degenerative joint disease Dyslipidemia Obesity Recommendation: Continue oxygen, high flow and titrate accordingly maintaining O2 saturation above 89%. Continue the COVID-19 cocktail. Continue Decadron. 6 mg IV push daily Continue zinc. Continue Lovenox 40 mg subcu daily Not quite ready for discharge planning. Anytime soon. Continue to monitor inflammatory markers. Continue respiratory/droplet isolation. We will continue to follow. Patient did receive convalescent plasma and toci Time with Patient: Less than 30
[2021-02-21] MEDS: ALPRAZolam 0.5 MG TAB PO PRN (22:24)
[2021-02-21] MEDS: LORATADINE-PSEUDOEPH 5-120 MG 1 EACH TAB.ER.12H PO PRN (22:24)
--- NOTE | 2021-02-21 23:14 | P.PN ---
Subjective Progress Note Date: 02/21/21 Principal diagnosis: Acute hypoxic respiratory failure secondary to COVID-19 pneumonia Mr. Hawk is a 50-year-old male with a past medical history of GERD, hypertension, hyperlipidemia, osteoarthritis admitted to the hospital for difficulty in breathing. Patient was tested positive for COVID-19 pneumonia. On 02/21/2021 -patient is seen and examined at the bedside. Patient remains on high flow oxygen Airvo FiO2 of 90% and 60 L flow saturating around low 90s. T- max of 98, heart rate 80s 200s, respiratory rate 20s to 25. Blood pressure 114/ 72. Reviewing the labs white count of 6.9, hemoglobin 15.3, platelets 194. Sodium 134, potassium 4.2, chloride 102, bicarb 26, BUN 17, creatinine 0.75. Albumin 2.7. On review of systems patient denies having any fevers chills or rigors. He continues to have difficulty in breathing which same as yesterday no improvement or worsening. Denies having any chest pain or palpitations. No abdominal pain nausea vomiting or diarrhea. No dysuria or hematuria. Active Medications Acetaminophen (Acetaminophen Tab 325 Mg Tab) 650 mg PO Q6HR PRN PRN Reason: Mild Pain or Fever > 100.5 Alprazolam (Alprazolam 0.5 Mg Tab) 0.5 mg PO QID PRN PRN Reason: Anxiety Last Admin: 02/21/21 22:24 Dose: 0.5 mg Documented by: Ascorbic Acid (Ascorbic Acid 500 Mg Tab) 500 mg PO BID [facility] Last Admin: 02/21/21 22:24 Dose: 500 mg Documented by: Benzonatate (Benzonatate 100 Mg Cap) 200 mg PO TID PRN PRN Reason: Cough Last Admin: 02/21/21 22:24 Dose: 200 mg Documented by: Cholecalciferol (Cholecalciferol 25 Mcg (1000 Iu) Tablet) 125 mcg PO DAILY [facility] Last Admin: 02/21/21 09:49 Dose: 125 mcg Documented by: Dexamethasone Sodium Phosphate (Dexamethasone Sod Phosphate 10 Mg/Ml 1 Ml Vial) 6 mg IV DAILY [facility] Last Admin: 02/21/21 09:49 Dose: 6 mg Documented by: Enoxaparin Sodium (Enoxaparin 40 Mg/0.4 Ml Syringe) 40 mg SQ DAILY [facility] Last Admin: 02/21/21 09:49 Dose: 40 mg Documented by: Guaifenesin/Dextromethorphan (Guaifenesin-Dm 100-10mg/5ml 10 Ml Cup) 10 ml PO Q6H PRN PRN Reason: Cough Last Admin: 02/21/21 17:42 Dose: 10 ml Documented by: Sodium Chloride (Saline 0.9%) 1,000 mls @ 75 mls/hr IV .[id number] [facility] Last Admin: 02/21/21 16:41 Dose: 75 mls/hr Documented by: Loratadine/Pseudoephedrine Sulfate (Loratadine-Pseudoeph 5-120 Mg 1 Each Tab.Er.12h) 1 each PO Q12HR PRN PRN Reason: Allergy Symptoms Last Admin: 02/21/21 22:24 Dose: 1 each Documented by: Naloxone HCl (Naloxone 0.4 Mg/Ml 1 Ml Vial) 0.2 mg IV Q2M PRN PRN Reason: Opioid Reversal Ondansetron HCl (Ondansetron 4 Mg/2 Ml Vial) 4 mg IVP Q8HR PRN PRN Reason: Nausea And Vomiting Zinc Sulfate (Zinc Sulfate 220 Mg Cap) 220 mg PO DAILY [facility] Last Admin: 02/21/21 09:50 Dose: 220 mg Documented by: Zolpidem Tartrate (Zolpidem 5 Mg Tab) 5 mg PO HS PRN PRN Reason: Insomnia Last Admin: 02/20/21 22:11 Dose: 5 mg Documented by: Objective - Vital Signs Vital signs: Vital Signs Temp 98.2 F 02/21/21 03:41 Pulse 89 02/21/21 12:00 Resp 24 02/21/21 12:00 BP 128/70 02/21/21 12:00 Pulse Ox 92 L 02/21/21 12:00 Intake & Output 02/20/21 02/21/21 02/21/21 18:59 06:59 18:59 Intake Total 598 315 Output Total 825 400 775 Balance -227 400 -246 Intake: Intake, IV Titration 75 Amount Sodium Chloride 0.9% 1, 75 000 ml @ 75 mls/hr IV . [id number] [facility] Rx#:[id number] Oral 598 240 Output: Urine 825 400 775 Other: Voiding Method Urinal Urinal - Exam General appearance: alert, in no apparent distress, high flow oxygen via airvo, comfortable not in distress ENT exam: Present: normal exam, normal oropharynx, mucous membranes moist Respiratory exam: Bilateral crackles Cardiovascular Exam: Normal S1 and S2, no S3 gallop, no murmur. GI/Abdominal exam: Soft, nontender, no megaly, no rebound, no guarding, normal bowel sounds.] Neurological exam: Present: alert, oriented X3, Psychiatric exam: Present: normal affect, normal mood Skin exam: Present: warm, dry, intact, normal color. - Labs CBC & Chem 7: 02/21/21 08:47 02/21/21 08:47 Labs: Abnormal Lab Results - Last 24 Hours (Table) 02/21/21 Range/Units 08:47 Sodium 134 L (137-145) mmol/L Glucose 120 H (74-99) mg/dL Calcium 8.1 L (8.4-10.2) mg/dL Total Protein 5.1 L (6.3-8.2) g/dL Albumin 2.7 L (3.5-5.0) g/dL Assessment and Plan Assessment: ASSESSMENT Acute hypoxic respiratory failure secondary to COVID-19 pneumonia Bilateral COVID-19 pneumonia Hypertension Hyperlipidemia Obesity with BMI of 41.6 History of occipital neuralgia Multiple joint osteoarthritis PLAN: Patient to continue on high flow oxygen, try to maintain oxygen saturations above 90%. Continue on Decadron, vitamin C, zinc supplements vitamin D supplements. GI DVT prophylaxis. Further recommendations to follow depending on the progress of the patient.
[2021-02-22] MEDS: ZINC SULFATE 220 MG CAP PO SCH (08:40)
[2021-02-22] MEDS: CHOLECALCIFEROL 25 MCG (1000 IU) TABLET PO SCH (08:40)
[2021-02-22] MEDS: ASCORBIC ACID 500 MG TAB PO SCH ×2 (08:40→22:07)
[2021-02-22] MEDS: BENZONATATE 100 MG CAP PO PRN ×2 (08:40→16:32)
[2021-02-22] MEDS: guaiFENesin-DM 100-10MG/5ML 10 ML CUP PO PRN ×3 (08:40→22:07)
[2021-02-22] MEDS: DEXAMETHASONE SOD PHOSPHATE 10 MG/ML 1 ML VIAL IV SCH ×2 (08:41→22:07)
[2021-02-22] MEDS: ENOXAPARIN 40 MG/0.4 ML SYRINGE SQ SCH (08:41)
[2021-02-22] MEDS: SODIUM CHLORIDE 0.9% 1,000 ML IV SCH (08:42)
[2021-02-22 09:38] LABS: Basophils % (A) 0 %; Eosinophils # (A) 0.2 k/uL (0-0.7); Eosinophils % (A) 2 %; HGB 15.2 gm/dL (13.0-17.5); Lymphocytes # (A) 0.6 k/uL (1.0-4.8); Lymphocytes % (A) 7 %; MCH 27.7 pg (25.0-35.0); MCHC 34.5 g/dL (31.0-37.0); MCV 80.3 fL (80.0-100.0); Mean Platelet Volume 7.1; Monocytes # (A) 0.2 k/uL (0-1.0); Monocytes % (A) 2 %; Neutrophils # (A) 7.2 k/uL (1.3-7.7); Neutrophils % (A) 87 %; Platelet Count 193 k/uL (150-450); RBC 5.49 m/uL (4.30-5.90); WBC 8.2 k/uL (3.8-10.6)
[2021-02-22 09:48] LABS: African American GFR (CKD) >90 (>60 ml/min/1.73 sqM); Anion Gap 9 mmol/L; Blood Urea Nitrogen 17 mg/dL (9-20); Calcium 8.5 mg/dL (8.4-10.2); Carbon Dioxide 26 mmol/L (22-30); Chloride 100 mmol/L (98-107); Glucose 133 mg/dL (74-99); Non-African American GFR(CKD) >90 (>60 ml/min/1.73 sqM); Potassium 3.8 mmol/L (3.5-5.1); Sodium 135 mmol/L (137-145)
[2021-02-22 09:56] LABS: LDH 2111 U/L (313-618)
--- NOTE | 2021-02-22 16:13 | P.PN ---
Subjective Progress Note Date: 02/22/21 Principal diagnosis: Acute hypoxic respiratory failure secondary to COVID-19 pneumonia On today's evaluation of 02/15/2021, the patient is doing well. He feels that he is breathing easier and he is less short of breath. He remains on 15 L nasal cannula along with 100% on a beta facemasks. He is sleeping on his side was dario position. Is difficult for him to sleep in a prone by the position. No fever. No nausea. No vomiting. Tolerating diet. Sitting up on a recliner. He completed treatment with Tocilizumab and he remains on Decadron. Inflammatory markers are all improving. On today's blood work, the patient's d- dimer is at 0.55, LDH level was down to 413 currently is at 1191 and the CRP level is down to 11.9. Electrolytes are within normal limits. The patient remains on Decadron 6 mg IV every 24 hours. Patient is also being hydrated IV fluids at the rate of 75 mL an hour. No abnormalities in the blood work or electrolytes. Progress note dated 02/16/2021. A 50-year-old male, with history of acute COVID 19 pneumonia. Currently, the patient's getting saline at 75 mL an hour. The patient currently on high flow nasal O2 at 15 L/m. The patient did get TOCI, on February 14, and 1 unit, convalescent plasma. Currently, the patient seemed be doing reasonably well. The patient is having shortness of breath, but he denies any fever, chills, cough, phlegm production, or chest pain. White count 6.46, hemoglobin 14, hematocrit 42.4, but the count 250,000. Sodium 136, potassium 4.4, chlorides 103, CO2 25, anion gap 8, BUN 19, creatinine 0.7. LDH was 447. C-reactive protein was 11.9. Procalcitonin level was 0.07. Chest x-ray showed diffuse bi lateral infiltrates. Progress note dated 02/17/2021. 50-year-old male, with a diagnosis of acute COVID 19 pneumonia, and hypoxemic respiratory failure. The patient's getting saline at 20 mL an hour. He's currently on 15 L high flow nasal cannula. The patient does feel like he is getting better. The patient did receive TOCI on February 14, and 1 unit of convalescent plasma. There are no new lab data today. Lab from February 16 are reviewed. Also, his medications are reviewed. Everything appears to be appropriate. Progress note dated 02/18/2021. 50-year-old male, with a diagnosis of hypoxemic respiratory failure secondary to COVID 19 pneumonia. The patient's oxygenation worsened overnight. Currently, he's on 15 L high flow nasal cannula, as well as a nonrebreather mask. He is getting saline at 20 mL an hour. He feels a bit more short of breath today than he did yesterday. He is sitting up in a chair by the bedside. The patient has had no new laboratory data. There is no recent chest x-ray. Currently, the patient's saturations between 88 and 93%. The patient does not have any conversational dyspnea, or use of accessory muscles. Progress note dated 02/19/2021. 50-year-old male, with a diagnosis of hypoxemic respiratory failure secondary to COVID 19 pneumonia. Today, he is on Vapotherm at 60 L/m, and 90% FiO2. He feels better on this then he was on the nonrebreather mask, and high flow nasal cannula. No new labs today. A chest x-ray done today shows infiltrates which have progressed. The patient has received all available therapies including convalescent plasma, and TOCI. He remains on vitamins, as well as Decadron, and Lovenox. The patient has been in the hospital now for about 6 days. Reevaluated today on 02/20/2021, not a significant change noted in the last few days. Patient remains on high flow oxygen utilizing airvo with FiO2 of 90% and 60 L flow. O2 saturation is 93%. Patient cannot tell if there is a major improvement or not, he feels is about the same. May be a bit better but not worse. Patient did receive convalescent plasma and toci, he was beyond the window for REM. Remains on Decadron, Lovenox, and multivitamins. Patient has been in the hospital now for almost 7 days. No dramatic change since admission. ABC is relatively normal. Electrolytes and renal profile are normal. LDH is improving down to 447 today. C-reactive protein is 11.9, and his pro-calcitonin was minimal 0.07 Patient was reevaluated today on 02/21/2021 remains on high flow oxygen, he is on 90% FiO2, 60 L flow, O2 sats is 94%, patient is feeling better. Overall pulmonary status remains marginal at best, clinically I believe there is some improvement. Patient did receive TOCI, and convalescent plasma, however he was out of the window for REM. Remains on Decadron Lovenox multivitamins. Overall pulmonary status is marginal at best. CBC is relatively normal lites are normal renal profile is normal pro-calcitonin level is 0.07 chest x-ray from 2 days ago continues to show bilateral airspace disease. With some progression. Slightly worse. Patient was reevaluated today on 02/22/2021, not much of a change in the last 24 hours, remains on high flow oxygen and high FiO2. Patient is on Airvo was 90% FiO2 and 60 L flow O2 saturation is marginal high 80s and low 90s. Patient has shortness of breath with any activity. Chest x-ray continues to show she difficult bilateral interstitial infiltrates. Patient received ANDREW I, and convalescent plasma, he was out of the window for REM. Remains on Lovenox and Decadron. Overall he is quite marginal. His pro-calcitonin level was within normal. Basic metabolic profile is normal LDH is significantly higher today up to 2110, C-reactive protein is better down to 2.0. Objective - Vital Signs Vital signs: Vital Signs Temp 97.7 F 02/22/21 08:00 Pulse 76 02/22/21 12:00 Resp 16 02/22/21 13:08 BP 121/83 02/22/21 12:00 Pulse Ox 95 02/22/21 12:00 Intake & Output 02/21/21 02/22/21 02/22/21 18:59 06:59 18:59 Intake Total 1613 1320 Output Total 1475 350 525 Balance 138 -350 795 Intake: IV 600 Sodium Chloride 0.9% 1, 600 000 ml @ 75 mls/hr IV . [id number] [facility] Rx#:[id number] Intake, IV Titration 675 Amount Sodium Chloride 0.9% 1, 675 000 ml @ 75 mls/hr IV . [id number] [facility] Rx#:[id number] Oral 938 720 Output: Urine 1475 350 525 Other: Voiding Method Urinal Urinal Urinal - Exam Physical Exam: Revealed 50-year-old white male on high flow oxygen via airvo, 90% and 60 L flow. comfortable not in distress HEENT:[Neck is supple.] [No neck masses.] [No thyromegaly.] [No JVD.] Chest: [Crackles at the bases. Cardiac Exam: [Normal S1 and S2, no S3 gallop, no murmur.] Abdomen: [Soft, nontender, no megaly, no rebound, no guarding, normal bowel sounds.] Extremities: [No clubbing, no edema, no cyanosis.] Neurological Exam: [No focal neurologic deficit.] Alert oriented 3. Musculoskeletal: No deformities noted limitation in range of motion. Psychiatric: Normal mood affect and normal mental status examination. - Labs CBC & Chem 7: 02/22/21 08:53 02/22/21 08:53 Labs: Abnormal Lab Results - Last 24 Hours (Table) 02/22/21 02/22/21 Range/Units 08:53 08:53 Lymphocytes # 0.6 L (1.0-4.8) k/uL Sodium 135 L (137-145) mmol/L Glucose 133 H (74-99) mg/dL Lactate Dehydrogenase 2111 H (313-618) U/L C-Reactive Protein 2.0 H (<1.0) mg/dL Assessment and Plan Assessment: Impression: Acute hypoxic respiratory failure secondary to COVID-19 pneumonia History of hypertension History of occipital neuralgia Degenerative joint disease Dyslipidemia Obesity Recommendation: Continue oxygen, high flow and titrate accordingly maintaining O2 saturation above 89%. Continue the COVID-19 cocktail. Continue Decadron. Will increase the dose to 6 mg IV push twice a day. Continue zinc. Continue Lovenox 40 mg subcu daily No plans to discharge the patient anytime soon. Patient is marginal at best Continue to monitor inflammatory markers. Continue respiratory/droplet isolation. We will continue to follow. Patient did receive convalescent plasma and toci Time with Patient: Less than 30
[2021-02-22] MEDS: ALPRAZolam 0.5 MG TAB PO PRN (22:06)
[2021-02-23] MEDS: LORATADINE-PSEUDOEPH 5-120 MG 1 EACH TAB.ER.12H PO PRN ×2 (00:07→22:44)
--- NOTE | 2021-02-23 00:12 | P.PN ---
Subjective Progress Note Date: 02/22/21 Principal diagnosis: Acute hypoxic respiratory failure secondary to COVID-19 pneumonia Mr. Hawk is a 50-year-old male with a past medical history of GERD, hypertension, hyperlipidemia, osteoarthritis admitted to the hospital for difficulty in breathing. Patient was tested positive for COVID-19 pneumonia. On 02/21/2021 -patient is seen and examined at the bedside. Patient remains on high flow oxygen Airvo FiO2 of 90% and 60 L flow saturating around low 90s. T- max of 98, heart rate 80s 200s, respiratory rate 20s to 25. Blood pressure 114/ 72. Reviewing the labs white count of 6.9, hemoglobin 15.3, platelets 194. Sodium 134, potassium 4.2, chloride 102, bicarb 26, BUN 17, creatinine 0.75. Albumin 2.7. On review of systems patient denies having any fevers chills or rigors. He continues to have difficulty in breathing which same as yesterday no improvement or worsening. Denies having any chest pain or palpitations. No abdominal pain nausea vomiting or diarrhea. No dysuria or hematuria. On 02/22/2021 -patient is seen and examined at bedside. He remains on high flow oxygen 60 L, 60% FiO2 and saturating in the low 90s. Patient states that he did not see any significant improvement since yesterday. He continues to have exertional dyspnea. No cough. Denies having any fevers chills or rigors. No abdominal pain nausea vomiting or diarrhea. Denies having any chest pain or palpitations. On reviewing the vitals temperature of 98.6, heart rate 72, respiratory 16, blood pressure 136 x 83. Reviewing his labs white count of 8.2, hemoglobin 15.2, platelets 193. Sodium 135, potassium 3.8, chloride 100, bicarb 20, BUN 17, creatinine 0.68 LDH 2111, CRP 2.0. Patient's medications have been reviewed Objective - Vital Signs Vital signs: Vital Signs Temp 97.7 F 02/22/21 08:00 Pulse 76 02/22/21 12:00 Resp 16 02/22/21 13:08 BP 121/83 02/22/21 12:00 Pulse Ox 95 02/22/21 12:00 Intake & Output 02/21/21 02/22/21 02/22/21 18:59 06:59 18:59 Intake Total 1613 1320 Output Total 1475 350 525 Balance 138 -350 795 Intake: IV 600 Sodium Chloride 0.9% 1, 600 000 ml @ 75 mls/hr IV . [id number] [facility] Rx#:[id number] Intake, IV Titration 675 Amount Sodium Chloride 0.9% 1, 675 000 ml @ 75 mls/hr IV . [id number] [facility] Rx#:[id number] Oral 938 720 Output: Urine 1475 350 525 Other: Voiding Method Urinal Urinal Urinal - Exam General appearance: alert, in no apparent distress, high flow oxygen via airvo ENT exam: Present: normal exam, normal oropharynx, mucous membranes moist Respiratory exam: Bilateral crackles Cardiovascular Exam: Normal S1 and S2, no S3 gallop, no murmur. GI/Abdominal exam: Soft, nontender, no megaly, no rebound, no guarding, normal bowel sounds. Neurological exam: Present: alert, oriented X3, Psychiatric exam: Present: normal affect, normal mood Skin exam: Present: warm, dry, intact, normal color. - Labs CBC & Chem 7: 03/06/21 07:37 03/06/21 07:37 Labs: Abnormal Lab Results - Last 24 Hours (Table) 02/22/21 02/22/21 Range/Units 08:53 08:53 Lymphocytes # 0.6 L (1.0-4.8) k/uL Sodium 135 L (137-145) mmol/L Glucose 133 H (74-99) mg/dL Lactate Dehydrogenase 2111 H (313-618) U/L C-Reactive Protein 2.0 H (<1.0) mg/dL Assessment and Plan Assessment: ASSESSMENT Acute hypoxic respiratory failure secondary to COVID-19 pneumonia Bilateral COVID-19 pneumonia Hypertension Hyperlipidemia Obesity with BMI of 41.6 History of occipital neuralgia Multiple joint osteoarthritis PLAN: Patient to continue on high flow oxygen, try to maintain oxygen saturations above 90%. Continue on Decadron, vitamin C, zinc supplements vitamin D supplements.We will continue to follow inflammatory markers. Overall responding very slowly. GI DVT prophylaxis. Further recommendations to follow depending on the progress of the patient.
[2021-02-23] MEDS: ASCORBIC ACID 500 MG TAB PO SCH ×2 (09:22→22:42)
[2021-02-23] MEDS: ZINC SULFATE 220 MG CAP PO SCH (09:22)
[2021-02-23] MEDS: CHOLECALCIFEROL 25 MCG (1000 IU) TABLET PO SCH (09:22)
[2021-02-23] MEDS: ENOXAPARIN 40 MG/0.4 ML SYRINGE SQ SCH (09:23)
[2021-02-23] MEDS: SODIUM CHLORIDE 0.9% 1,000 ML IV SCH ×2 (09:23→18:11)
[2021-02-23] MEDS: DEXAMETHASONE SOD PHOSPHATE 10 MG/ML 1 ML VIAL IV SCH ×2 (09:23→22:41)
[2021-02-23] MEDS: BENZONATATE 100 MG CAP PO PRN ×2 (09:26→17:00)
--- NOTE | 2021-02-23 16:40 | P.PN ---
Subjective Progress Note Date: 02/23/21 Principal diagnosis: Acute hypoxemic respiratory failure. On today's evaluation of 02/15/2021, the patient is doing well. He feels that he is breathing easier and he is less short of breath. He remains on 15 L nasal cannula along with 100% on a beta facemasks. He is sleeping on his side was dario position. Is difficult for him to sleep in a prone by the position. No fever. No nausea. No vomiting. Tolerating diet. Sitting up on a recliner. He completed treatment with Tocilizumab and he remains on Decadron. Inflammatory markers are all improving. On today's blood work, the patient's d- dimer is at 0.55, LDH level was down to 413 currently is at 1191 and the CRP level is down to 11.9. Electrolytes are within normal limits. The patient remains on Decadron 6 mg IV every 24 hours. Patient is also being hydrated IV fluids at the rate of 75 mL an hour. No abnormalities in the blood work or electrolytes. Progress note dated 02/16/2021. A 50-year-old male, with history of acute COVID 19 pneumonia. Currently, the patient's getting saline at 75 mL an hour. The patient currently on high flow nasal O2 at 15 L/m. The patient did get TOCI, on February 14, and 1 unit, convalescent plasma. Currently, the patient seemed be doing reasonably well. The patient is having shortness of breath, but he denies any fever, chills, cough, phlegm production, or chest pain. White count 6.46, hemoglobin 14, hematocrit 42.4, but the count 250,000. Sodium 136, potassium 4.4, chlorides 103, CO2 25, anion gap 8, BUN 19, creatinine 0.7. LDH was 447. C-reactive protein was 11.9. Procalcitonin level was 0.07. Chest x-ray showed diffuse bilateral infiltrates. Progress note dated 02/17/2021. 50-year-old male, with a diagnosis of acute COVID 19 pneumonia, and hypoxemic respiratory failure. The patient's getting saline at 20 mL an hour. He's currently on 15 L high flow nasal cannula. The patient does feel like he is getting better. The patient did receive TOCI on [place] 17, and 1 unit of convalescent plasma. There are no new lab data today. Lab from February 16 are reviewed. Also, his medications are reviewed. Everything appears to be appropriate. Progress note dated 02/18/2021. 50-year-old male, with a diagnosis of hypoxemic respiratory failure secondary to COVID 19 pneumonia. The patient's oxygenation worsened overnight. Currently, he's on 15 L high flow nasal cannula, as well as a nonrebreather mask. He is getting saline at 20 mL an hour. He feels a bit more short of breath today than he did yesterday. He is sitting up in a chair by the bedside. The patient has had no new laboratory data. There is no recent chest x-ray. Currently, the patient's saturations between 88 and 93%. The patient does not have any conversational dyspnea, or use of accessory muscles. Progress note dated 02/19/2021. 50-year-old male, with a diagnosis of hypoxemic respiratory failure secondary to COVID 19 pneumonia. Today, he is on Vapotherm at 60 L/m, and 90% FiO2. He feels better on this then he was on the nonrebreather mask, and high flow nasal cannula. No new labs today. A chest x-ray done today shows infiltrates which have progressed. The patient has received all available therapies including convalescent plasma, and TOCI. He remains on vitamins, as well as Decadron, and Lovenox. The patient has been in the hospital now for about 6 days. Reevaluated today on 02/20/2021, not a significant change noted in the last few days. Patient remains on high flow oxygen utilizing airvo with FiO2 of 90% and 60 L flow. O2 saturation is 93%. Patient cannot tell if there is a major improvement or not, he feels is about the same. May be a bit better but not worse. Patient did receive convalescent plasma and toci, he was beyond the window for REM. Remains on Decadron, Lovenox, and multivitamins. Patient has been in the hospital now for almost 7 days. No dramatic change since admission. ABC is relatively normal. Electrolytes and renal profile are normal. LDH is improving down to 447 today. C-reactive protein is 11.9, and his pro-calcitonin was minimal 0.07 Patient was reevaluated today on 02/21/2021 remains on high flow oxygen, he is on 90% FiO2, 60 L flow, O2 sats is 94%, patient is feeling better. Overall pulmonary status remains marginal at best, clinically I believe there is some improvement. Patient did receive TOCI, and convalescent plasma, however he was out of the window for REM. Remains on Decadron Lovenox multivitamins. Overall pulmonary status is marginal at best. CBC is relatively normal lites are normal renal profile is normal pro-calcitonin level is 0.07 chest x-ray from 2 days ago continues to show bilateral airspace disease. With some progression. Slightly worse. Patient was reevaluated today on 02/22/2021, not much of a change in the last 24 hours, remains on high flow oxygen and high FiO2. Patient is on Airvo was 90% FiO2 and 60 L flow O2 saturation is marginal high 80s and low 90s. Patient has shortness of breath with any activity. Chest x-ray continues to show she difficult bilateral interstitial infiltrates. Patient received ANDREW I, and convalescent plasma, he was out of the window for REM. Remains on Lovenox and Decadron. Overall he is quite marginal. His pro-calcitonin level was within normal. Basic metabolic profile is normal LDH is significantly higher today up to 2110, C-reactive protein is better down to 2.0. Progress note dated 02/23/2021. 50-year-old male, that I saw last on February 19. Currently, the patient's on AIRVO, at 50 L/m, and 80%. He looks very comfortable despite his FiO2 concentration. He is not manifesting any signs or symptoms of respiratory distress, conversational dyspnea, or use of accessory muscles. No new labs today. Also, no new chest x-ray today. Saturations are in the low 90s. Blood pressure and respiratory rate are normal. He is afebrile. Objective - Vital Signs Vital signs: Vital Signs Temp 97.4 F L 02/23/21 08:00 Pulse 108 H 02/23/21 08:00 Resp 24 02/23/21 08:00 BP 128/70 02/23/21 08:00 Pulse Ox 92 L 02/23/21 11:58 Intake & Output 02/22/21 02/23/21 02/23/21 18:59 06:59 18:59 Intake Total 1800 240 Output Total 525 1050 900 Balance 1275 -1050 -660 Weight 123.037 kg Intake: IV 600 Sodium Chloride 0.9% 1, 600 000 ml @ 75 mls/hr IV . [id number] REBECA Rx#:[id number] Oral 1200 240 Output: Urine 525 1050 900 Other: Voiding Method Urinal Urinal Urinal # Voids 2 - Exam No acute distress, oriented 3. Patient is currently on AIRVO, at 50 L/m and 80% FiO2. Saturations are in the low 90s. HEENT examination is grossly unremarkable. Neck supple. Full range of motion. No adenopathy thyromegaly or neck vein distention. Cardiovascular examination reveals regular rhythm rate. S1-S2 normal. No S3 or S4. No discernible murmur noted. Heart rate 100 bpm. Lungs reveal bilateral rhonchi, and bibasilar crackles. Breath sounds equal bilaterally. There are no wheezes. Abdomen soft bowel sounds are heard. No masses or tenderness. Extremities are intact. No cyanosis clubbing or edema. Skin is without rash or lesion. Neurologic examination is brief but nonfocal. - Labs CBC & Chem 7: 02/22/21 08:53 02/22/21 08:53 Assessment and Plan Assessment: Acute hypoxemic respiratory failure secondary to COVID 19 pneumonia/pneumonitis. Obesity. History of hypertension. Hyperlipidemia. Osteoarthritis. DJD. Occipital neuralgia. Plan: Plan dated 02/16/2021. The patient remains on saline at 75 mL an hour, and high flow nasal O2 at 15 L. The patient did get 1 unit convalescent plasma, and also TOCI, on February 14. The patient continues on Decadron, and Lovenox. In addition, the patient continues on vitamin supplementation including vitamin C, vitamin D3, and zinc. Additional recommendations and suggestions are forthcoming. Prognosis is guarded. Plan dated 02/17/2021. The patient remains on 15 L high flow nasal cannula. Saturations are in the low 90s to mid 90s. The patient feels like he is improved. The patient is receiving appropriate therapies including vitamin C, vitamin D3, and zinc. The patient also continues on Decadron and Lovenox. The patient also received 1 unit of convalescent plasma, and TOCI. We will continue to follow make recommendations were appropriate. Prognosis is guarded. Plan dated 02/18/2021. The patient is currently on nonrebreather mask and 15 L high flow nasal O2. The patient does feel a bit more short of breath and he did yesterday. The patient remains on appropriate therapies including vitamin C, vitamin D3, and zinc. The patient is also on Decadron and Lovenox. The patient should have a repeat chest x-ray and inflammatory markers tomorrow. The patient has really received convalescent plasma, and TOCI. We will continue to follow along. Prognosis is guarded. Plan dated 02/19/2021. Currently, the patient is on AIRVO. He seems to be tolerating that better than the nonrebreather mask, and 15 L high flow nasal cannula. He feels more comfortable. His saturations in the low 90s. Unfortunately, his chest x-ray has worsened. Clinically though, he looks relatively stable and he does not appear to be air hungry. We will continue to follow and make recommendations were appropriate. Prognosis is guarded. Additional recommendations and suggestions are forthcoming. Plan dated 02/23/2021. The patient remains on AIRVO, at 50 L/m, and 80% FiO2. He looks very comfortable. The patient is not manifesting any signs or symptoms of respiratory distress. There is no audible wheezing, use of accessory muscles, or conversational dyspnea. There are no labs or new chest x-rays today. We will continue to follow. The patient has received vitamin C, vitamin D3, and zinc. The patient also has received convalescent plasma, Decadron, Lovenox, and TOCI. We will continue to follow make recommendations were appropriate. Prognosis is guarded. Time with Patient: Less than 30
--- NOTE | 2021-02-23 20:29 | P.PN ---
Subjective Principal diagnosis: The patient is here essentially for Covid 19 pneumonia. The patient has been slowly improving. But complains of significant fatigue. The patient states no nausea or vomiting. No fever yesterday. No other voiding difficulties. Appreciate multiple consultants input. The patient has been resting comfortably but realizes still significant weakness due to hypoxia The patient has been transferred to third floor secondary to his hypoxia Over the last 48 hours, oxygen need has decreased which is excellent. Trajectory of recovery has improved. Objective - Vital Signs Vital signs: Vital Signs Temp 97.4 F L 02/23/21 08:00 Pulse 108 H 02/23/21 08:00 Resp 24 02/23/21 08:00 BP 128/70 02/23/21 08:00 Pulse Ox 92 L 02/23/21 11:58 Intake & Output 02/23/21 02/23/21 02/24/21 06:59 18:59 06:59 Intake Total 720 Output Total 1050 1750 Balance -1050 -1030 Weight 123.037 kg Intake: Oral 720 Output: Urine 1050 1750 Other: Voiding Method Urinal Urinal # Voids 2 - Constitutional General appearance: Present: mild distress - EENT Eyes: Absent: abnormal pupil - Respiratory Respiratory: bilateral: diminished - Cardiovascular Rhythm: regular Heart sounds: normal: S1, S2 Abnormal Heart Sounds: Absent: S3 Gallop - Gastrointestinal General gastrointestinal: Present: soft. Absent: tenderness - Neurologic Neurologic: Present: CNII-XII intact - Musculoskeletal Musculoskeletal: Present: generalized weakness - Psychiatric Psychiatric: Present: A&O x's 3 - Labs CBC & Chem 7: 02/22/21 08:53 02/22/21 08:53 Assessment and Plan (1) Pneumonia due to COVID-19 virus Current Visit: Yes Status: Acute Code(s): U07.1 - COVID-19; J12.82 - Pneumonia due to coronavirus disease 2018 SNOMED Code(s): 887226862189645737 Plan: He seems to have appropriate trajectory for recovery. I appreciate pulmonology input. Check CBC and CMP in a.m. Appropriate protocol for Covid pneumonia. Time with Patient: Greater than 30
[2021-02-23] MEDS: ALPRAZolam 0.5 MG TAB PO PRN (22:42)
[2021-02-23] MEDS: guaiFENesin-DM 100-10MG/5ML 10 ML CUP PO PRN (23:18)
[2021-02-24] MEDS: SODIUM CHLORIDE 0.9% 1,000 ML IV SCH ×2 (05:37→21:13)
[2021-02-24] MEDS: DEXAMETHASONE SOD PHOSPHATE 10 MG/ML 1 ML VIAL IV SCH ×2 (08:01→21:13)
[2021-02-24] MEDS: ASCORBIC ACID 500 MG TAB PO SCH ×2 (08:01→21:13)
[2021-02-24] MEDS: ZINC SULFATE 220 MG CAP PO SCH (08:01)
[2021-02-24] MEDS: ENOXAPARIN 40 MG/0.4 ML SYRINGE SQ SCH (08:01)
[2021-02-24] MEDS: CHOLECALCIFEROL 25 MCG (1000 IU) TABLET PO SCH (08:01)
--- NOTE | 2021-02-24 08:41 | P.PN ---
Subjective Principal diagnosis: The patient is here essentially for Covid 19 pneumonia. The patient has been slowly improving. But complains of significant fatigue. The patient states no nausea or vomiting. No fever yesterday. No other voiding difficulties. Appreciate multiple consultants input. The patient has been resting comfortably but realizes still significant weakness due to hypoxia The patient has been transferred to third floor secondary to his hypoxia Over the last 48 hours, oxygen need has decreased which is excellent. Trajectory of recovery has improved. Objective - Vital Signs Vital signs: Vital Signs Temp 98.5 F 02/24/21 04:00 Pulse 75 02/24/21 04:00 Resp 21 02/24/21 04:00 BP 131/82 02/24/21 04:00 Pulse Ox 93 L 02/24/21 04:00 Intake & Output 02/23/21 02/24/21 02/24/21 18:59 06:59 18:59 Intake Total 720 Output Total 1750 935 Balance -1030 -935 Weight 124.3 kg Intake: Oral 720 Output: Urine 1750 935 Other: Voiding Method Urinal Urinal # Voids 2 1 - Constitutional General appearance: Present: average body habitus - EENT Eyes: Absent: abnormal pupil - Neck Neck: Absent: lymphadenopathy - Respiratory Respiratory: bilateral: diminished (Better air exchange) - Cardiovascular Rhythm: regular Heart sounds: normal: S1, S2 Abnormal Heart Sounds: Absent: S3 Gallop - Gastrointestinal General gastrointestinal: Present: soft. Absent: tenderness - Integumentary Integumentary: Absent: cellulitis - Neurologic Neurologic: Present: CNII-XII intact - Labs CBC & Chem 7: 02/22/21 08:53 02/22/21 08:53 Assessment and Plan (1) Pneumonia due to COVID-19 virus Current Visit: Yes Status: Acute Code(s): U07.1 - COVID-19; J12.82 - Pneumonia due to coronavirus disease 2019 SNOMED Code(s): 068489657809261269 Plan: He seems to have appropriate trajectory for recovery. I appreciate pulmonology input. Check CBC and CMP in a.m. Appropriate protocol for Covid pneumonia.
[2021-02-24] MEDS: BENZONATATE 100 MG CAP PO PRN (21:13)
[2021-02-24] MEDS: ALPRAZolam 0.5 MG TAB PO PRN (21:13)
[2021-02-24] MEDS: LORATADINE-PSEUDOEPH 5-120 MG 1 EACH TAB.ER.12H PO PRN (21:45)
[2021-02-25] MEDS: ZOLPIDEM 5 MG TAB PO PRN (00:41)
[2021-02-25] MEDS: SODIUM CHLORIDE 0.9% 1,000 ML IV SCH ×2 (04:50→13:48)
[2021-02-25] MEDS: DEXAMETHASONE SOD PHOSPHATE 10 MG/ML 1 ML VIAL IV SCH ×2 (08:29→20:57)
[2021-02-25] MEDS: ASCORBIC ACID 500 MG TAB PO SCH ×2 (08:29→20:57)
[2021-02-25] MEDS: ZINC SULFATE 220 MG CAP PO SCH (08:30)
[2021-02-25] MEDS: ENOXAPARIN 40 MG/0.4 ML SYRINGE SQ SCH (08:30)
[2021-02-25] MEDS: CHOLECALCIFEROL 25 MCG (1000 IU) TABLET PO SCH (08:30)
[2021-02-25 11:06] LABS: HCT 46.9 % (39.6-50.0); HGB 15.5 g/dL (13.0-17.0); MCH 27.5 pg (27.0-32.0); MCV 83.3 fL (80.0-97.0); Mean Platelet Volume 10.7 fL (9.5-12.2); Platelet Count 242 X 10*3/uL (140-440); RBC 5.63 X 10*6/uL (4.40-5.60); RDW 14.2 % (11.5-14.5)
[2021-02-25 12:41] LABS: African American GFR (CKD) 136.8 (60.0-200.0); Albumin 3.6 g/dL (3.80-4.90); Anion Gap 10.5 mmol/L (4.00-12.00); BUN/Creat Ratio 36.67 Ratio (12.00-20.00); Calcium 8.5 mg/dL (8.7-10.3); Carbon Dioxide 23.5 mmol/L (21.6-31.8); Globulin 1.8 g/dL (1.6-3.3); Non-African American GFR(CKD) 118.1 (60.0-200.0); Potassium 4.7 mmol/L (3.5-5.5); Total Bilirubin 0.7 mg/dL (0.2-1.2); Total Protein 5.4 g/dL (6.2-8.2)
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
[2021-02-25] MEDS: ALPRAZolam 0.5 MG TAB PO PRN (20:59)
[2021-02-25] MEDS: BENZONATATE 100 MG CAP PO PRN (20:59)
--- NOTE | 2021-02-25 23:03 | P.PN ---
Subjective Principal diagnosis: The patient is here essentially for Covid 19 pneumonia. The patient has been slowly improving. But complains of significant fatigue. The patient states no nausea or vomiting. No fever yesterday. No other voiding difficulties. Appreciate multiple consultants input. The patient has been resting comfortably but realizes still significant weakness due to hypoxia The patient has been transferred to third floor secondary to his hypoxia Over the last 48 hours, oxygen need has decreased which is excellent. Trajectory of recovery has improved. The patient seems to be stable and speaking conversationally with minimal distress Objective - Vital Signs Vital signs: Vital Signs Temp 97.4 F L 02/25/21 21:42 Pulse 82 02/25/21 21:42 Resp 18 02/25/21 21:42 BP 140/91 02/25/21 21:42 Pulse Ox 90 L 02/25/21 21:42 Intake & Output 02/25/21 02/25/21 02/26/21 06:59 18:59 06:59 Intake Total 1080 1080 Output Total 725 800 Balance -382 313 1458 Intake: Oral 1080 1080 Output: Urine 725 800 Other: Voiding Method Urinal # Voids 4 3 1 - Constitutional General appearance: Present: cooperative, mild distress. Absent: average body habitus - EENT Eyes: Absent: abnormal pupil - Neck Neck: Present: lymphadenopathy - Respiratory Respiratory: bilateral: diminished - Cardiovascular Rhythm: regular Heart sounds: normal: S1, S2 Abnormal Heart Sounds: Absent: S3 Gallop - Gastrointestinal General gastrointestinal: Present: soft. Absent: tenderness - Musculoskeletal Musculoskeletal: Present: generalized weakness - Psychiatric Psychiatric: Present: A&O x's 3, appropriate affect - Labs CBC & Chem 7: 02/25/21 06:58 02/25/21 06:58 Labs: Abnormal Lab Results - Last 24 Hours (Table) 02/25/21 02/25/21 02/25/21 Range/Units 06:58 06:58 12:54 WBC 13.30 H (4.50-10.00) X 10*3/uL RBC 5.63 H (4.40-5.60) X 10*6/uL D-Dimer 7.25 H (<0.60) mg/L FEU BUN/Creatinine Ratio 36.67 H (12.00-20.00) Ratio Calcium 8.5 L (8.7-10.3) mg/dL ALT 51 H (10-49) U/L Total Protein 5.4 L (6.2-8.2) g/dL Albumin 3.60 L (3.80-4.90) g/dL Assessment and Plan (1) Pneumonia due to COVID-19 virus Current Visit: Yes Status: Acute Code(s): U07.1 - COVID-19; J12.82 - Pneumonia due to coronavirus disease 2018 SNOMED Code(s): 282980104634137907 Plan: He seems to have appropriate trajectory for recovery. I appreciate pulmonology input. Check CBC and CMP in a.m. Appropriate protocol for Covid pneumonia. The patient is slowly improving which could be typical for this disease state.
[2021-02-26] MEDS: SODIUM CHLORIDE 0.9% 1,000 ML IV SCH (00:06)
--- NOTE | 2021-02-26 07:34 | XR ---
EXAMINATION TYPE: XR chest 1V portable DATE OF EXAM: 02/26/2021 COMPARISON: 02/19/2021 HISTORY: Shortness of breath TECHNIQUE: Single frontal view of the chest is obtained. FINDINGS: Bilateral airspace disease stable. Heart size normal. No pneumothorax. Tiny pleural effusi on suspected. Suggestion of surgical clip in the upper abdomen. Limited inspiration. IMPRESSION: Stable diffuse bilateral infiltrates.
[2021-02-26] MEDS: ASCORBIC ACID 500 MG TAB PO SCH ×2 (07:53→19:40)
[2021-02-26] MEDS: CHOLECALCIFEROL 25 MCG (1000 IU) TABLET PO SCH (07:53)
[2021-02-26] MEDS: DEXAMETHASONE SOD PHOSPHATE 10 MG/ML 1 ML VIAL IV SCH ×2 (07:53→19:41)
[2021-02-26] MEDS: ENOXAPARIN 40 MG/0.4 ML SYRINGE SQ SCH (07:53)
[2021-02-26] MEDS: ZINC SULFATE 220 MG CAP PO SCH (07:54)
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
[2021-02-26 15:01] LABS: C Reactive Protein <0.4 mg/dL (0.0-0.8); LDH 630 U/L (120-246)
--- NOTE | 2021-02-26 15:36 | US ---
EXAMINATION TYPE: US venous doppler duplex LE BI DATE OF EXAM: 02/26/2021 3:14 PM COMPARISON: NONE CLINICAL HISTORY: rule out DVT. Covid. Elevated ddimer. No swelling or redness. SIDE PERFORMED: Bilateral TECHNIQUE: The lower extremity deep venous system is examined utilizing real time linear array sonog winifred with graded compression, doppler sonography and color-flow sonography. VESSELS IMAGED: Common Femoral Vein Deep Femoral Vein Greater Saphenous Vein * Femoral Vein Popliteal Vein Small Saphenous Vein * Proximal Calf Veins (* superficial vessels) Right Leg: Negative for DVT Left Leg: Possible internal echoes at mid popliteal vein. Positive for SVT in SSV. IMPRESSION: 1. Findings suggestive of DVT mid popliteal vein. 2. Exam positive for superficial venous thrombosis of the small saphenous vein
[2021-02-26] MEDS: BENZONATATE 100 MG CAP PO PRN (19:40)
[2021-02-26] MEDS: ALPRAZolam 0.5 MG TAB PO PRN (19:41)
[2021-02-26] MEDS ORDERED: ENOXAPARIN 40 MG/0.4 ML SYRINGE SQ SCH ×2 (21:00)
--- NOTE | 2021-02-26 23:35 | P.PN ---
Subjective Principal diagnosis: The patient is here essentially for Covid 19 pneumonia. The patient has been slowly improving. But complains of significant fatigue. The patient states no nausea or vomiting. No fever yesterday. No other voiding difficulties. Appreciate multiple consultants input. The patient has been resting comfortably but realizes still significant weakness due to hypoxia The patient has been transferred to third floor secondary to his hypoxia Over the last 48 hours, oxygen need has decreased which is excellent. Trajectory of recovery has improved. The patient seems to be stable and speaking conversationally with minimal distress Objective - Vital Signs Vital signs: Vital Signs Temp 98.4 F 02/26/21 21:52 Pulse 88 02/26/21 21:52 Resp 18 02/26/21 21:52 BP 115/74 02/26/21 21:52 Pulse Ox 86 L 02/26/21 21:52 Intake & Output 02/26/21 02/26/21 02/27/21 06:59 18:59 06:59 Intake Total 1530 600 850 Output Total 1200 Balance 1530 600 -350 Intake: IV 150 250 Sodium Chloride 0.9% 1, 150 250 000 ml @ 75 mls/hr IV . [id number] [facility] Rx#:[id number] Oral 1380 600 600 Output: Urine 1200 Other: Voiding Method Urinal Urinal # Voids 3 3 3 - Constitutional General appearance: Present: mild distress - EENT Eyes: Absent: abnormal pupil - Respiratory Respiratory: bilateral: diminished - Cardiovascular Rhythm: regular Heart sounds: normal: S1, S2 Abnormal Heart Sounds: Absent: S3 Gallop - Gastrointestinal General gastrointestinal: Present: soft. Absent: tenderness - Integumentary Integumentary: Present: normal - Labs CBC & Chem 7: 02/25/21 06:58 02/25/21 06:58 Labs: Abnormal Lab Results - Last 24 Hours (Table) 02/26/21 02/26/21 Range/Units 06:08 06:08 D-Dimer 7.14 H (<0.60) mg/L FEU Lactate Dehydrogenase 630 H (120-246) U/L Assessment and Plan (1) Pneumonia due to COVID-19 virus Current Visit: Yes Status: Acute Code(s): U07.1 - COVID-19; J12.82 - Pneumonia due to coronavirus disease 2018 SNOMED Code(s): [id number] Plan: He seems to have appropriate trajectory for recovery. I appreciate pulmonology input. Check CBC and CMP in a.m. Appropriate protocol for Covid pneumonia. The patient is slowly improving which could be typical for this disease state. Significant prognostic improvement.
[2021-02-27] MEDS: DEXAMETHASONE SOD PHOSPHATE 10 MG/ML 1 ML VIAL IV SCH ×2 (07:26→20:17)
[2021-02-27] MEDS: CHOLECALCIFEROL 25 MCG (1000 IU) TABLET PO SCH (07:26)
[2021-02-27] MEDS: ASCORBIC ACID 500 MG TAB PO SCH (07:26)
[2021-02-27] MEDS: ZINC SULFATE 220 MG CAP PO SCH (07:27)
[2021-02-27] MEDS ORDERED: ENOXAPARIN 60 MG/0.6 ML SYRINGE SQ SCH (09:00)
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
--- NOTE | 2021-02-27 14:40 | CT ---
EXAMINATION TYPE: CT chest angio for PE DATE OF EXAM: 02/27/2021 COMPARISON: HISTORY: Shortness of breath. CT DLP: 566.7 mGycm Automated exposure control for dose reduction was used. CONTRAST: CT Chest for pulmonary embolism performed with with IV Contrast, patient injected with 67 mL of Isovu e 370. FINDINGS: LUNGS: Diffuse bilateral airspace disease correlate for interstitial pneumonitis. Diffuse groundglass changes noted. Basilar subsegmental consolidation posteriorly. No sizable pleural effusions or pneum othorax. MEDIASTINUM: There is satisfactory enhancement of the pulmonary arteries resulting in severely limite d exam. There is virtually no contrast within the pulmonary arteries. However there is heterogeneous density seen on image 59 with any secondary branch of the right pulmonary artery. A pulmonary embolis m cannot be excluded correlate clinically. Heart size prominent. Aorta of normal caliber. OTHER: Lap band incidentally noted. Hypertrophic and degenerative change of the spine IMPRESSION: 1. Diffuse airspace disease correlate for diffuse pneumonia or ARDS. 2. Essentially nondiagnostic exam due to lack of any significant contrast within the pulmonary arteri es. However, on image 59 is suggestion of possible intraluminal filling defect within right pulmonary artery branch vessel and findings are suspicious for a pulmonary embolism. Correlate clinically give n the limitation of the exam.
[2021-02-27] MEDS: APIXABAN 5 MG TAB PO SCH ×2 (14:57→20:17)
[2021-02-27] MEDS: LOSARTAN 50 MG TAB PO SCH (20:18)
[2021-02-27] MEDS: ALPRAZolam 0.5 MG TAB PO PRN (21:33)
[2021-02-27] MEDS: LORATADINE-PSEUDOEPH 5-120 MG 1 EACH TAB.ER.12H PO PRN (21:38)
[2021-02-28] MEDS: CHOLECALCIFEROL 25 MCG (1000 IU) TABLET PO SCH (10:11)
[2021-02-28] MEDS: DEXAMETHASONE SOD PHOSPHATE 10 MG/ML 1 ML VIAL IV SCH ×2 (10:11→20:34)
[2021-02-28] MEDS: ASCORBIC ACID 500 MG TAB PO SCH ×2 (10:11→20:34)
[2021-02-28] MEDS: ZINC SULFATE 220 MG CAP PO SCH (10:11)
[2021-02-28] MEDS: APIXABAN 5 MG TAB PO SCH ×2 (10:11→20:34)
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
[2021-02-28] MEDS: ALPRAZolam 0.5 MG TAB PO PRN (20:34)
[2021-02-28] MEDS: LOSARTAN 50 MG TAB PO SCH (20:34)
[2021-02-28] MEDS: LORATADINE-PSEUDOEPH 5-120 MG 1 EACH TAB.ER.12H PO PRN (21:10)
[2021-03-01] MEDS: APIXABAN 5 MG TAB PO SCH ×2 (08:26→20:11)
[2021-03-01] MEDS: CHOLECALCIFEROL 25 MCG (1000 IU) TABLET PO SCH (08:26)
[2021-03-01] MEDS: DEXAMETHASONE SOD PHOSPHATE 10 MG/ML 1 ML VIAL IV SCH ×2 (08:26→20:11)
[2021-03-01] MEDS: ASCORBIC ACID 500 MG TAB PO SCH ×2 (08:26→20:11)
[2021-03-01] MEDS: ZINC SULFATE 220 MG CAP PO SCH (08:26)
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
[2021-03-01] MEDS: ALPRAZolam 0.5 MG TAB PO PRN (20:11)
[2021-03-01] MEDS: LORATADINE-PSEUDOEPH 5-120 MG 1 EACH TAB.ER.12H PO PRN (20:11)
[2021-03-01] MEDS: LOSARTAN 50 MG TAB PO SCH (20:11)
[2021-03-02] MEDS: ASCORBIC ACID 500 MG TAB PO SCH ×2 (07:31→20:43)
[2021-03-02] MEDS: ZINC SULFATE 220 MG CAP PO SCH (07:31)
[2021-03-02] MEDS: APIXABAN 5 MG TAB PO SCH ×2 (07:32→20:43)
[2021-03-02] MEDS: CHOLECALCIFEROL 25 MCG (1000 IU) TABLET PO SCH (07:32)
[2021-03-02] MEDS: DEXAMETHASONE SOD PHOSPHATE 10 MG/ML 1 ML VIAL IV SCH ×2 (07:32→20:43)
--- NOTE | 2021-03-02 08:10 | P.PN ---
Subjective Principal diagnosis: The patient is here essentially for Covid 19 pneumonia. The patient has been slowly improving. But complains of significant fatigue. The patient states no nausea or vomiting. No fever yesterday. No other voiding difficulties. Appreciate multiple consultants input. The patient has been resting comfortably but realizes still significant weakness due to hypoxia The patient has been transferred to third floor secondary to his hypoxia Over the last 48 hours, oxygen need has decreased which is excellent. Trajectory of recovery has improved. The patient seems to be stable and speaking conversationally with minimal distress Objective - Vital Signs Vital signs: Vital Signs Temp 97.9 F 03/02/21 05:20 Pulse 102 H 03/02/21 05:20 Resp 17 03/02/21 05:20 BP 117/76 03/02/21 05:20 Pulse Ox 88 L 03/02/21 05:20 Intake & Output 03/01/21 03/02/21 03/02/21 18:59 06:59 18:59 Other: Voiding Method Toilet Urinal - Constitutional General appearance: Present: mild distress - EENT Eyes: Absent: abnormal pupil - Neck Neck: Absent: lymphadenopathy - Respiratory Respiratory: bilateral: diminished - Cardiovascular Rhythm: regular Heart sounds: normal: S1, S2 Abnormal Heart Sounds: Absent: S3 Gallop - Gastrointestinal General gastrointestinal: Present: soft. Absent: tenderness - Integumentary Integumentary: Absent: cellulitis - Labs CBC & Chem 7: 02/25/21 06:58 02/25/21 06:58 Assessment and Plan (1) Pneumonia due to COVID-19 virus Current Visit: Yes Status: Acute Code(s): U07.1 - COVID-19; J12.82 - Pneumonia due to coronavirus disease 2019 SNOMED Code(s): 800121729981027833 (2) DVT (deep venous thrombosis) Current Visit: Yes Status: Acute Code(s): I82.409 - ACUTE EMBOLISM AND THOMBOS UNSP DEEP VN UNSP LOWER EXTREMITY SNOMED Code(s): 312045727 Plan: He seems to have appropriate trajectory for recovery. I appreciate pulmonology input. Check CBC and CMP in a.m. Appropriate protocol for Covid pneumonia. The patient is slowly improving which could be typical for this disease state. Significant prognostic improvement. Continue anticoagulation.
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
[2021-03-02] MEDS: LOSARTAN 50 MG TAB PO SCH (20:43)
[2021-03-02] MEDS: ALPRAZolam 0.5 MG TAB PO PRN (22:33)
[2021-03-02] MEDS: LORATADINE-PSEUDOEPH 5-120 MG 1 EACH TAB.ER.12H PO PRN (22:33)
[2021-03-03] MEDS: ZOLPIDEM 5 MG TAB PO PRN ×2 (00:09→21:22)
--- NOTE | 2021-03-03 08:31 | XR ---
EXAMINATION TYPE: XR chest 1V DATE OF EXAM: 03/03/2021 COMPARISON: 02/26/2021 INDICATION: COVID TECHNIQUE: Single frontal view of the chest is obtained. FINDINGS: The heart size is normal. The pulmonary vasculature is normal. Diffuse peripheral infiltrates are present bilaterally. These are improved from comparison. Findings are compatible with atypical pneumonia IMPRESSION: 1. Diffuse peripheral bilateral lung infiltrates, improving from comparison, can be compatible with a typical pneumonia.
[2021-03-03] MEDS: DEXAMETHASONE SOD PHOSPHATE 10 MG/ML 1 ML VIAL IV SCH ×2 (08:35→21:08)
[2021-03-03] MEDS: ZINC SULFATE 220 MG CAP PO SCH (08:35)
[2021-03-03] MEDS: APIXABAN 5 MG TAB PO SCH ×2 (08:35→21:08)
[2021-03-03] MEDS: CHOLECALCIFEROL 25 MCG (1000 IU) TABLET PO SCH (08:35)
[2021-03-03] MEDS: ASCORBIC ACID 500 MG TAB PO SCH ×2 (08:35→21:08)
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
[2021-03-03] MEDS: ALPRAZolam 0.5 MG TAB PO PRN (21:08)
[2021-03-03] MEDS: BENZONATATE 100 MG CAP PO PRN (21:08)
[2021-03-03] MEDS: LOSARTAN 50 MG TAB PO SCH (21:09)
[2021-03-03] MEDS: LORATADINE-PSEUDOEPH 5-120 MG 1 EACH TAB.ER.12H PO PRN (21:09)
[2021-03-04] MEDS: DEXAMETHASONE SOD PHOSPHATE 10 MG/ML 1 ML VIAL IV SCH ×2 (08:52→21:15)
[2021-03-04] MEDS: APIXABAN 5 MG TAB PO SCH ×2 (08:52→21:16)
[2021-03-04] MEDS: ASCORBIC ACID 500 MG TAB PO SCH ×2 (08:56→21:16)
[2021-03-04] MEDS: CHOLECALCIFEROL 25 MCG (1000 IU) TABLET PO SCH (08:56)
[2021-03-04] MEDS: ZINC SULFATE 220 MG CAP PO SCH (08:56)
[2021-03-04 15:10] LABS: C Reactive Protein 2.2 mg/dL (0.0-0.8)
[2021-03-04 15:29] VITALS: BMI 41.6
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
[2021-03-04] MEDS: ALPRAZolam 0.5 MG TAB PO PRN (21:16)
[2021-03-04] MEDS: BENZONATATE 100 MG CAP PO PRN (21:16)
[2021-03-04] MEDS: LOSARTAN 50 MG TAB PO SCH (21:16)
[2021-03-04] MEDS: ZOLPIDEM 5 MG TAB PO PRN (21:16)
[2021-03-05] MEDS: APIXABAN 5 MG TAB PO SCH ×2 (06:52→21:39)
[2021-03-05] MEDS: CHOLECALCIFEROL 25 MCG (1000 IU) TABLET PO SCH ×2 (06:52→06:55)
[2021-03-05] MEDS: ZINC SULFATE 220 MG CAP PO SCH (06:52)
[2021-03-05] MEDS: ASCORBIC ACID 500 MG TAB PO SCH ×2 (06:52→21:39)
[2021-03-05] MEDS: DEXAMETHASONE SOD PHOSPHATE 10 MG/ML 1 ML VIAL IV SCH ×2 (06:56→21:39)
--- NOTE | 2021-03-05 08:02 | P.PN ---
Subjective Principal diagnosis: The patient is here essentially for Covid 19 pneumonia. The patient has been slowly improving. But complains of significant fatigue. The patient states no nausea or vomiting. No fever yesterday. No other voiding difficulties. Appreciate multiple consultants input. The patient has been resting comfortably but realizes still significant weakness due to hypoxia The patient has been transferred to third floor secondary to his hypoxia Over the last 48 hours, oxygen need has decreased which is excellent. Trajectory of recovery has improved. The patient seems to be stable and speaking conversationally with minimal distress Objective - Vital Signs Vital signs: Vital Signs Temp 97.5 F L 03/05/21 05:19 Pulse 90 03/05/21 05:19 Resp 20 03/05/21 05:19 BP 137/94 03/05/21 05:19 Pulse Ox 91 L 03/05/21 05:19 Intake & Output 03/04/21 03/05/21 03/05/21 18:59 06:59 18:59 Weight 124.3 kg Other: Voiding Method Toilet Toilet Urinal Urinal - Constitutional General appearance: Present: cooperative, mild distress - EENT Eyes: Absent: abnormal pupil - Neck Neck: Absent: lymphadenopathy - Respiratory Respiratory: bilateral: diminished - Cardiovascular Rhythm: regular Heart sounds: normal: S1, S2 Abnormal Heart Sounds: Absent: S3 Gallop - Gastrointestinal General gastrointestinal: Present: soft. Absent: tenderness - Integumentary Integumentary: Absent: cellulitis - Neurologic Neurologic: Present: CNII-XII intact - Musculoskeletal Musculoskeletal: Present: generalized weakness - Psychiatric Psychiatric: Present: A&O x's 3 - Labs CBC & Chem 7: 02/25/21 06:58 02/25/21 06:58 Labs: Abnormal Lab Results - Last 24 Hours (Table) 03/04/21 Range/Units 05:46 Lactate Dehydrogenase 368 H (120-246) U/L C-Reactive Protein 2.2 H (0.0-0.8) mg/dL Assessment and Plan (1) Pneumonia due to COVID-19 virus Current Visit: Yes Status: Acute Code(s): U07.1 - COVID-19; J12.82 - Pneumonia due to coronavirus disease 2018 SNOMED Code(s): 491771914660959233 (2) DVT (deep venous thrombosis) Current Visit: Yes Status: Acute Code(s): I82.409 - ACUTE EMBOLISM AND THOMBOS UNSP DEEP VN UNSP LOWER EXTREMITY SNOMED Code(s): 818005543 Plan: He seems to have appropriate trajectory for recovery. I appreciate pulmonology input. Check CBC and CMP in a.m. Appropriate protocol for Covid pneumonia. The patient is slowly improving which could be typical for this disease state. Significant prognostic improvement. Continue anticoagulation.
[2021-03-05 09:20] LABS: Basophils # (A) 0.07 X 10*3/uL (0.00-0.10); Basophils % (A) 0.6 %; Eosinophils # (A) 0 X 10*3/uL (0.04-0.35); Eosinophils % (A) 0 %; HCT 47.9 % (39.6-50.0); HGB 15.5 g/dL (13.0-17.0); Lymphocytes # (A) 0.46 X 10*3/uL (0.90-5.00); Lymphocytes % (A) 3.7 %; MCH 27.8 pg (27.0-32.0); MCHC 32.4 g/dL (32.0-37.0); MCV 85.8 fL (80.0-97.0); Mean Platelet Volume 10.5 fL (9.5-12.2); Monocytes # (A) 0.64 X 10*3/uL (0.20-1.00); Monocytes % (A) 5.1 %; Neutrophils # (A) 10.71 X 10*3/uL (1.80-7.70); Neutrophils % (A) 85.9 %; Platelet Count 172 X 10*3/uL (140-440); RBC 5.58 X 10*6/uL (4.40-5.60); RDW 15.3 % (11.5-14.5); WBC 12.46 X 10*3/uL (4.50-10.00)
[2021-03-05 11:13] LABS: African American GFR (CKD) 136.8 (60.0-200.0); Anion Gap 11.4 mmol/L (4.00-12.00); BUN/Creat Ratio 46.67 Ratio (12.00-20.00); Carbon Dioxide 23.6 mmol/L (21.6-31.8); Non-African American GFR(CKD) 118.1 (60.0-200.0); Potassium 4.7 mmol/L (3.5-5.5)
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
[2021-03-05] MEDS: LOSARTAN 50 MG TAB PO SCH (21:39)
[2021-03-05] MEDS: ALPRAZolam 0.5 MG TAB PO PRN (21:39)
[2021-03-05] MEDS: ZOLPIDEM 5 MG TAB PO PRN (21:39)
[2021-03-06] MEDS: CHOLECALCIFEROL 25 MCG (1000 IU) TABLET PO SCH (07:55)
[2021-03-06] MEDS: APIXABAN 5 MG TAB PO SCH ×2 (07:55→21:34)
[2021-03-06] MEDS: ASCORBIC ACID 500 MG TAB PO SCH ×2 (07:56→21:34)
[2021-03-06] MEDS: ZINC SULFATE 220 MG CAP PO SCH (07:56)
[2021-03-06] MEDS: DEXAMETHASONE SOD PHOSPHATE 10 MG/ML 1 ML VIAL IV SCH ×2 (07:56→21:33)
--- NOTE | 2021-03-06 08:26 | P.PN ---
Subjective Principal diagnosis: The patient is here essentially for Covid 19 pneumonia. The patient has been slowly improving. But complains of significant fatigue. The patient states no nausea or vomiting. No fever yesterday. No other voiding difficulties. Appreciate multiple consultants input. The patient has been resting comfortably but realizes still significant weakness due to hypoxia The patient has been transferred to third floor secondary to his hypoxia Over the last 48 hours, oxygen need has decreased which is excellent. Trajectory of recovery has improved. The patient seems to be stable and speaking conversationally with minimal distress Objective - Vital Signs Vital signs: Vital Signs Temp 97.3 F L 03/06/21 05:09 Pulse 82 03/06/21 05:09 Resp 16 03/06/21 05:09 BP 135/83 03/06/21 05:09 Pulse Ox 91 L 03/06/21 05:09 Intake & Output 03/05/21 03/06/21 03/06/21 18:59 06:59 18:59 Other: Voiding Method Toilet Toilet Urinal Urinal - Constitutional General appearance: Present: mild distress, obese - EENT Eyes: Absent: abnormal pupil - Neck Neck: Absent: lymphadenopathy - Respiratory Respiratory: bilateral: CTA - Cardiovascular Rhythm: regular Heart sounds: normal: S1, S2 Abnormal Heart Sounds: Absent: S3 Gallop - Gastrointestinal General gastrointestinal: Present: soft. Absent: tenderness - Integumentary Integumentary: Absent: cellulitis - Neurologic Neurologic: Present: CNII-XII intact - Musculoskeletal Musculoskeletal: Present: generalized weakness - Psychiatric Psychiatric: Present: A&O x's 3, appropriate affect - Labs CBC & Chem 7: 03/05/21 06:29 03/05/21 06:29 Labs: Abnormal Lab Results - Last 24 Hours (Table) 03/05/21 03/05/21 Range/Units 06:29 06:29 WBC 12.46 H (4.50-10.00) X 10*3/uL RDW 15.3 H (11.5-14.5) % Immature Gran # 0.58 H (0.00-0.04) X 10*3/uL Neutrophils # 10.71 H (1.80-7.70) X 10*3/uL Lymphocytes # 0.46 L (0.90-5.00) X 10*3/uL Eosinophils # 0 L (0.04-0.35) X 10*3/uL BUN 28.0 H (9.0-27.0) mg/dL BUN/Creatinine Ratio 46.67 H (12.00-20.00) Ratio Glucose 188 H (70-110) mg/dL Calcium 8.0 L (8.7-10.3) mg/dL Assessment and Plan (1) Pneumonia due to COVID-19 virus Current Visit: Yes Status: Acute Code(s): U07.1 - COVID-19; J12.82 - Pneumonia due to coronavirus disease 2018 SNOMED Code(s): 455866188803730911 (2) DVT (deep venous thrombosis) Current Visit: Yes Status: Acute Code(s): I82.409 - ACUTE EMBOLISM AND THOMBOS UNSP DEEP VN UNSP LOWER EXTREMITY SNOMED Code(s): 514082510 Plan: He seems to have appropriate trajectory for recovery. I appreciate pulmonology input. Check CBC and CMP in a.m. Appropriate protocol for Covid pneumonia. The patient is slowly improving which could be typical for this disease state. Significant prognostic improvement. Continue anticoagulation.
[2021-03-06 11:45] LABS: HGB 16.2 g/dL (13.0-17.0); MCH 27.2 pg (27.0-32.0); MCHC 31.8 g/dL (32.0-37.0); MCV 85.7 fL (80.0-97.0); Mean Platelet Volume 10.3 fL (9.5-12.2); Platelet Count 215 X 10*3/uL (140-440); RBC 5.95 X 10*6/uL (4.40-5.60); RDW 15.8 % (11.5-14.5); WBC 14.06 X 10*3/uL (4.50-10.00)
[2021-03-06 12:48] LABS: African American GFR (CKD) 136.8 (60.0-200.0); Albumin 3.7 g/dL (3.80-4.90); Albumin/Globulin Ratio 1.95 (1.60-3.17); Anion Gap 10.1 mmol/L (4.00-12.00); Calcium 8.4 mg/dL (8.7-10.3); Carbon Dioxide 26.9 mmol/L (21.6-31.8); Globulin 1.9 g/dL (1.6-3.3); Non-African American GFR(CKD) 118.1 (60.0-200.0); Potassium 4.9 mmol/L (3.5-5.5); Total Bilirubin 0.7 mg/dL (0.2-1.2); Total Protein 5.6 g/dL (6.2-8.2)
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
[2021-03-06] MEDS: LOSARTAN 50 MG TAB PO SCH (21:34)
[2021-03-06] MEDS: ALPRAZolam 0.5 MG TAB PO PRN (21:34)
[2021-03-06] MEDS: BENZONATATE 100 MG CAP PO PRN (21:34)
[2021-03-06] MEDS: ZOLPIDEM 5 MG TAB PO PRN (21:34)
[2021-03-07] MEDS: ALPRAZolam 0.5 MG TAB PO PRN ×3 (04:28→22:48)
[2021-03-07] MEDS: CHOLECALCIFEROL 25 MCG (1000 IU) TABLET PO SCH (08:59)
[2021-03-07] MEDS: APIXABAN 5 MG TAB PO SCH ×2 (08:59→22:48)
[2021-03-07] MEDS: ZINC SULFATE 220 MG CAP PO SCH (08:59)
[2021-03-07] MEDS: DEXAMETHASONE SOD PHOSPHATE 10 MG/ML 1 ML VIAL IV SCH (08:59)
[2021-03-07] MEDS: ASCORBIC ACID 500 MG TAB PO SCH ×2 (09:00→22:47)
[2021-03-07 12:11] LABS: HCT 47.9 % (39.6-50.0); HGB 15.5 g/dL (13.0-17.0); MCH 27.6 pg (27.0-32.0); MCHC 32.4 g/dL (32.0-37.0); MCV 85.4 fL (80.0-97.0); Mean Platelet Volume 10.6 fL (9.5-12.2); Platelet Count 183 X 10*3/uL (140-440); RBC 5.61 X 10*6/uL (4.40-5.60); RDW 15.6 % (11.5-14.5); WBC 12.15 X 10*3/uL (4.50-10.00)
[2021-03-07 12:36] LABS: African American GFR (CKD) 136.8 (60.0-200.0); Albumin 3.4 g/dL (3.80-4.90); Albumin/Globulin Ratio 2.27 (1.60-3.17); Anion Gap 9.7 mmol/L (4.00-12.00); Calcium 8.2 mg/dL (8.7-10.3); Carbon Dioxide 27.3 mmol/L (21.6-31.8); Globulin 1.5 g/dL (1.6-3.3); Non-African American GFR(CKD) 118.1 (60.0-200.0); Potassium 4.6 mmol/L (3.5-5.5); Total Bilirubin 0.6 mg/dL (0.2-1.2); Total Protein 4.9 g/dL (6.2-8.2)
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
--- NOTE | 2021-03-07 14:30 | P.PN ---
Subjective Progress Note Date: 03/07/21 Principal diagnosis: Acute hypoxic respiratory failure secondary to COVID-19 pneumonia Mr. Hawk is a 50-year-old male with a past medical history of GERD, hype rtension, hyperlipidemia, osteoarthritis admitted to the hospital for difficulty in breathing. Patient was tested positive for COVID-19 pneumonia. On 03/07/2021-patient is seen and examined at bedside. Patient states that he did show some improvement in his breathing since yesterday. Denies having any fevers chills or rigors. No abdominal pain nausea vomiting or diarrhea. Denies having any chest pain or palpitations. On reviewing the vitals temperature of 98.3, heart rate 72, respiratory 16, blood pressure 136 x 89. Pain the last from this morning white count of 12.1, hemoglobin 15.5, platelets 183. Sodium 138, ratio 4.6, chloride 101, bicarbonate 27, BUN 27, creatinine 0.6. Active Medications Acetaminophen (Acetaminophen Tab 325 Mg Tab) 650 mg PO Q6HR PRN PRN Reason: Mild Pain or Fever > 100.5 Alprazolam (Alprazolam 0.5 Mg Tab) 0.5 mg PO QID PRN PRN Reason: Anxiety Last Admin: 03/07/21 04:28 Dose: 0.5 mg Documented by: Apixaban (Apixaban 5 Mg Tab) 5 mg PO BID [facility] Last Admin: 03/07/21 08:59 Dose: 5 mg Documented by: Ascorbic Acid (Ascorbic Acid 500 Mg Tab) 500 mg PO BID [facility] Last Admin: 03/07/21 09:00 Dose: 500 mg Documented by: Benzonatate (Benzonatate 100 Mg Cap) 200 mg PO TID PRN PRN Reason: Cough Last Admin: 03/06/21 21:34 Dose: 200 mg Documented by: Cholecalciferol (Cholecalciferol 25 Mcg (1000 Iu) Tablet) 125 mcg PO DAILY [facility] Last Admin: 03/07/21 08:59 Dose: 125 mcg Documented by: Dexamethasone (Dexamethasone 4 Mg Tab) 4 mg PO DAILY [facility] Guaifenesin/Dextromethorphan (Guaifenesin-Dm 100-10mg/5ml 10 Ml Cup) 10 ml PO Q6H PRN PRN Reason: Cough Last Admin: 02/23/21 23:18 Dose: 10 ml Documented by: Loratadine/Pseudoephedrine Sulfate (Loratadine-Pseudoeph 5-120 Mg 1 Each Tab.Er. 12h) 1 each PO Q12HR PRN PRN Reason: Allergy Symptoms Last Admin: 03/03/21 21:09 Dose: 1 each Documented by: Losartan Potassium (Losartan 50 Mg Tab) 50 mg PO HS [facility] Last Admin: 03/06/21 21:34 Dose: 50 mg Documented by: Naloxone HCl (Naloxone 0.4 Mg/Ml 1 Ml Vial) 0.2 mg IV Q2M PRN PRN Reason: Opioid Reversal Ondansetron HCl (Ondansetron 4 Mg/2 Ml Vial) 4 mg IVP Q8HR PRN PRN Reason: Nausea And Vomiting Zinc Sulfate (Zinc Sulfate 220 Mg Cap) 220 mg PO DAILY [facility] Last Admin: 03/07/21 08:59 Dose: 220 mg Documented by: Zolpidem Tartrate (Zolpidem 5 Mg Tab) 5 mg PO HS PRN PRN Reason: Insomnia Last Admin: 03/06/21 21:34 Dose: 5 mg Documented by: Objective - Vital Signs Vital signs: Vital Signs Temp 97.8 F 03/07/21 05:13 Pulse 70 03/07/21 05:13 Resp 16 03/07/21 05:13 BP 127/83 03/07/21 05:13 Pulse Ox 95 03/07/21 05:13 Intake & Output 03/06/21 03/07/21 03/07/21 18:59 06:59 18:59 Other: Voiding Method Toilet Toilet Urinal Urinal - Exam General appearance: alert, in no apparent distress, on 8 L of oxygen saturating about 90% ENT exam: Present: normal exam, normal oropharynx, mucous membranes moist Respiratory exam: Bilateral crackles Cardiovascular Exam: Normal S1 and S2, no S3 gallop, no murmur. GI/Abdominal exam: Soft, nontender, no megaly, no rebound, no guarding, normal bowel sounds. Neurological exam: Present: alert, oriented X3, Psychiatric exam: Present: normal affect, normal mood Skin exam: Present: warm, dry, intact, normal color. - Labs CBC & Chem 7: 03/07/21 06:42 03/07/21 06:42 Labs: Abnormal Lab Results - Last 24 Hours (Table) 05/07/21 05/07/21 Range/Units 07:37 07:37 WBC 14.06 H (4.50-10.00) X 10*3/uL RBC 5.95 H (4.40-5.60) X 10*6/uL Hct 51.0 H (39.6-50.0) % MCHC 31.8 L (32.0-37.0) g/dL RDW 15.8 H (11.5-14.5) % BUN/Creatinine Ratio 40.00 H (12.00-20.00) Ratio Calcium 8.4 L (8.7-10.3) mg/dL ALT 225 H (10-49) U/L Total Protein 5.6 L (6.2-8.2) g/dL Albumin 3.70 L (3.80-4.90) g/dL Assessment and Plan Assessment: ASSESSMENT Acute hypoxic respiratory failure secondary to COVID-19 pneumonia Bilateral COVID-19 pneumonia Hypertension Hyperlipidemia Obesity with BMI of 41.6 History of occipital neuralgia Multiple joint osteoarthritis PLAN: Patient received a dose of Tociluzumab and convalescent plasma. Weaning off of oxygen, to maintain oxygen saturations above 90%. Continue on Decadron, vitamin C, zinc supplements vitamin D supplements.He is on Eliquis for anticoagulation. We will continue to follow inflammatory markers. Overall responding very slowly. GI DVT prophylaxis. Further recommendations to follow depending on the progress of the patient.
[2021-03-07] MEDS: LOSARTAN 50 MG TAB PO SCH (22:47)
[2021-03-07] MEDS: ZOLPIDEM 10 MG TAB PO PRN (22:47)
[2021-03-07] MEDS: BENZONATATE 100 MG CAP PO PRN (22:47)
[2021-03-08] MEDS: ALPRAZolam 0.5 MG TAB PO PRN ×3 (06:26→21:10)
[2021-03-08] MEDS: dexAMETHasone 4 MG TAB PO SCH (08:58)
[2021-03-08] MEDS: CHOLECALCIFEROL 25 MCG (1000 IU) TABLET PO SCH (08:58)
[2021-03-08] MEDS: ASCORBIC ACID 500 MG TAB PO SCH ×2 (08:58→21:10)
[2021-03-08] MEDS: APIXABAN 5 MG TAB PO SCH ×2 (08:58→21:10)
[2021-03-08] MEDS: ZINC SULFATE 220 MG CAP PO SCH (08:58)
[2021-03-08 09:04] LABS: HCT 46.5 % (39.6-50.0); HGB 15.1 g/dL (13.0-17.0); MCH 27.7 pg (27.0-32.0); MCHC 32.5 g/dL (32.0-37.0); MCV 85.3 fL (80.0-97.0); Mean Platelet Volume 10.3 fL (9.5-12.2); Platelet Count 181 X 10*3/uL (140-440); RBC 5.45 X 10*6/uL (4.40-5.60); RDW 15.8 % (11.5-14.5); WBC 12.17 X 10*3/uL (4.50-10.00)
[2021-03-08 10:01] LABS: African American GFR (CKD) 136.8 (60.0-200.0); Anion Gap 7.9 mmol/L (4.00-12.00); BUN/Creat Ratio 53.33 Ratio (12.00-20.00); Carbon Dioxide 28.1 mmol/L (21.6-31.8); Non-African American GFR(CKD) 118.1 (60.0-200.0); Potassium 4.5 mmol/L (3.5-5.5)
[2021-03-08 11:22] LABS: Basophils # (M) 0 X 10*3/uL (0.00-0.10); Eosinophils # (M) 0 X 10*3/uL (0.04-0.35); Lymphocytes # (M) 0.87 X 10*3/uL (0.90-5.00); Metamyelocytes % 3 % (0-0); Neutrophils # (M) 10.72 X 10*3/uL (2.00-8.90); Neutrophils % (M) 86 %
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
[2021-03-08] MEDS ORDERED: DOCUSATE 100 MG CAP PO PRN (12:50)
--- NOTE | 2021-03-08 15:00 | P.PN ---
Subjective Progress Note Date: 03/08/21 Principal diagnosis: Acute hypoxic respiratory failure secondary to COVID-19 pneumonia Mr. Hawk is a 50-year-old male with a past medical history of GERD, hype rtension, hyperlipidemia, osteoarthritis admitted to the hospital for difficulty in breathing. Patient was tested positive for COVID-19 pneumonia. On 03/07/2021-patient is seen and examined at bedside. Patient states that he did show some improvement in his breathing since yesterday. Denies having any fevers chills or rigors. No abdominal pain nausea vomiting or diarrhea. Denies having any chest pain or palpitations. On reviewing the vitals temperature of 98.3, heart rate 72, respiratory 16, blood pressure 136 x 89. Pain the last from this morning white count of 12.1, hemoglobin 15.5, platelets 183. Sodium 138, ratio 4.6, chloride 101, bicarbonate 27, BUN 27, creatinine 0.6. On 03/08/2021 - patient was seen and examined at the bedside. Yesterday evening patient was complaining of some chest discomfort, heaviness and anxiety. He had EKG and troponins drawn that were within normal limits. Patient mentions that he was disturbed by the patient next door, who had psychiatric issues and was agitated. But this morning patient denies having any chest pain or palpitations. He feels much calmer compared to yesterday. He denies having any worsening of difficulty in breathing. No abdominal pain nausea vomiting or diarrhea. No dysuria or hematuria. On reviewing the vitals from this morning temperature of 98.7, heart rate 80s to 120s, blood pressure 122/85, saturating at 90% on 7 L of oxygen. On reviewing the labs from this morning white count of 12.1, hemoglobin 15.1 platelets 181. Sodium 140, ratio 4.0, chloride 104, bicarb 28, BUN 32, creatinine 0.6. Active Medications Acetaminophen (Acetaminophen Tab 325 Mg Tab) 650 mg PO Q6HR PRN PRN Reason: Mild Pain or Fever > 100.5 Alprazolam (Alprazolam 0.5 Mg Tab) 0.5 mg PO QID PRN PRN Reason: Anxiety Last Admin: 03/08/21 12:08 Dose: 0.5 mg Documented by: Apixaban (Apixaban 5 Mg Tab) 5 mg PO BID [facility] Last Admin: 03/08/21 08:58 Dose: 5 mg Documented by: Ascorbic Acid (Ascorbic Acid 500 Mg Tab) 500 mg PO BID [facility] Last Admin: 03/08/21 08:58 Dose: 500 mg Documented by: Benzonatate (Benzonatate 100 Mg Cap) 200 mg PO TID PRN PRN Reason: Cough Last Admin: 03/07/21 22:47 Dose: 200 mg Documented by: Cholecalciferol (Cholecalciferol 25 Mcg (1000 Iu) Tablet) 125 mcg PO DAILY [facility] Last Admin: 03/08/21 08:58 Dose: 125 mcg Documented by: Dexamethasone (Dexamethasone 4 Mg Tab) 4 mg PO DAILY [facility] Last Admin: 03/08/21 08:58 Dose: 4 mg Documented by: Docusate Sodium (Docusate 100 Mg Cap) 100 mg PO DAILY PRN PRN Reason: Constipation Guaifenesin/Dextromethorphan (Guaifenesin-Dm 100-10mg/5ml 10 Ml Cup) 10 ml PO Q6H PRN PRN Reason: Cough Last Admin: 02/23/21 23:18 Dose: 10 ml Documented by: Loratadine/Pseudoephedrine Sulfate (Loratadine-Pseudoeph 5-120 Mg 1 Each Tab.Er.12h) 1 each PO Q12HR PRN PRN Reason: Allergy Symptoms Last Admin: 03/03/21 21:09 Dose: 1 each Documented by: Losartan Potassium (Losartan 50 Mg Tab) 50 mg PO HS [facility] Last Admin: 03/07/21 22:47 Dose: 50 mg Documented by: Naloxone HCl (Naloxone 0.4 Mg/Ml 1 Ml Vial) 0.2 mg IV Q2M PRN PRN Reason: Opioid Reversal Ondansetron HCl (Ondansetron 4 Mg/2 Ml Vial) 4 mg IVP Q8HR PRN PRN Reason: Nausea And Vomiting Zinc Sulfate (Zinc Sulfate 220 Mg Cap) 220 mg PO DAILY [facility] Last Admin: 03/08/21 08:58 Dose: 220 mg Documented by: Zolpidem Tartrate (Zolpidem 10 Mg Tab) 10 mg PO HS PRN PRN Reason: Anxiety Last Admin: 03/07/21 22:47 Dose: 10 mg Documented by: Objective - Vital Signs Vital signs: Vital Signs Temp 97.8 F 03/08/21 10:00 Pulse 124 H 03/08/21 10:00 Resp 7 L 03/08/21 10:00 BP 122/85 03/08/21 10:00 Pulse Ox 90 L 03/08/21 10:00 Intake & Output 03/07/21 03/08/21 03/08/21 18:59 06:59 18:59 Intake Total 440 Balance 440 Intake: Oral 440 Other: Voiding Method Toilet Urinal - Exam PHYSICAL EXAM General appearance: alert, in no apparent distress, on 7 L of oxygen saturating about 90% ENT exam: Present: normal exam, normal oropharynx, mucous membranes moist Respiratory exam: Bilateral rhonchi at the lower lung bases Cardiovascular Exam: Normal S1 and S2, no S3 gallop, no murmur. GI/Abdominal exam: Soft, nontender, no megaly, no rebound, no guarding, normal bowel sounds. Neurological exam: Present: alert, oriented X3, Psychiatric exam: Present: normal affect, normal mood Skin exam: Present: warm, dry, intact, normal color. - Labs CBC & Chem 7: 03/08/21 05:59 03/08/21 05:59 Labs: Abnormal Lab Results - Last 24 Hours (Table) 03/07/21 03/07/21 03/08/21 Range/Units 06:42 06:42 05:59 WBC 12.15 H 12.17 H (4.50-10.00) X 10*3/uL RBC 5.61 H (4.40-5.60) X 10*6/uL RDW 15.6 H 15.8 H (11.5-14.5) % Absolute Nucleated RBC 0.02 H (0.00-0.00) X 10*3/uL Metamyelocytes % 3 H (0-0) % Neutrophils # (Manual) 10.72 H (2.00-8.90) X 10*3/uL Lymphocytes # (Manual) 0.87 L (0.90-5.00) X 10*3/uL Eosinophils # (Manual) 0 L (0.04-0.35) X 10*3/uL NRBC/100 WBC Diff 0.2 H (0.0-0.0) /100 WBCS BUN (9.0-27.0) mg/dL BUN/Creatinine Ratio 45.00 H (12.00-20.00) Ratio Calcium 8.2 L (8.7-10.3) mg/dL ALT 188 H (10-49) U/L Total Protein 4.9 L (6.2-8.2) g/dL Albumin 3.40 L (3.80-4.90) g/dL Globulin 1.5 L (1.6-3.3) g/dL 03/08/21 Range/Units 05:59 WBC (4.50-10.00) X 10*3/uL RBC (4.40-5.60) X 10*6/uL RDW (11.5-14.5) % Absolute Nucleated RBC (0.00-0.00) X 10*3/uL Metamyelocytes % (0-0) % Neutrophils # (Manual) (2.00-8.90) X 10*3/uL Lymphocytes # (Manual) (0.90-5.00) X 10*3/uL Eosinophils # (Manual) (0.04-0.35) X 10*3/uL NRBC/100 WBC Diff (0.0-0.0) /100 WBCS BUN 32.0 H (9.0-27.0) mg/dL BUN/Creatinine Ratio 53.33 H (12.00-20.00) Ratio Calcium 8.0 L (8.7-10.3) mg/dL ALT (10-49) U/L Total Protein (6.2-8.2) g/dL Albumin (3.80-4.90) g/dL Globulin (1.6-3.3) g/dL Assessment and Plan Assessment: ASSESSMENT Acute hypoxic respiratory failure secondary to COVID-19 pneumonia Bilateral COVID-19 pneumonia Anxiety Hypertension Hyperlipidemia Obesity with BMI of 41.6 History of occipital neuralgia Multiple joint osteoarthritis Left popliteal DVT PLAN: Troponin and EKG from yesterday evening within normal limits. Patient received a dose of Tociluzumab and convalescent plasma. Weaning off of oxygen, to maintain oxygen saturations above 90%. Continue on Decadron, vitamin C, zinc supplements vitamin D supplements.He is on Eliquis 5 mg twice a day for anticoagulation. We will continue to follow inflammatory markers. Overall responding very slowly. GI DVT prophylaxis. Further recommendations to follow depending on the progress of the patient.
[2021-03-08] MEDS: ZOLPIDEM 10 MG TAB PO PRN (21:10)
[2021-03-08] MEDS: LOSARTAN 50 MG TAB PO SCH (21:10)
[2021-03-08] MEDS: BENZONATATE 100 MG CAP PO PRN (21:10)
--- NOTE | 2021-03-09 08:00 | XR ---
EXAMINATION TYPE: XR chest 1V portable DATE OF EXAM: 03/09/2021 COMPARISON: 03/03/2021 HISTORY: Cough TECHNIQUE: Single frontal view of the chest is obtained. FINDINGS: Diffuse interstitial pattern with basilar subsegmental consolidation. No pleural effusion or pneumothorax. Heart size stable. IMPRESSION: Diffuse interstitial pattern correlate for interstitial pneumonitis.
--- NOTE | 2021-03-09 08:20 | P.PN ---
Subjective Principal diagnosis: The patient is here essentially for Covid 19 pneumonia. The patient has been slowly improving. But complains of significant fatigue. The patient states no nausea or vomiting. No fever yesterday. No other voiding difficulties. Appreciate multiple consultants input. The patient has been resting comfortably but realizes still significant weakness due to hypoxia The patient has been transferred to third floor secondary to his hypoxia Over the last 48 hours, oxygen need has decreased which is excellent. Trajectory of recovery has improved. The patient seems to be stable and speaking conversationally with minimal distress The patient is now doing well on 5 L of oxygen but had somewhat of a stephanie we ekend. Objective - Vital Signs Vital signs: Vital Signs Temp 97.7 F 03/09/21 05:36 Pulse 85 03/09/21 05:36 Resp 17 03/09/21 05:36 BP 114/67 03/09/21 05:36 Pulse Ox 93 L 03/09/21 05:36 Intake & Output 03/08/21 03/09/21 03/09/21 18:59 06:59 18:59 Other: Voiding Method Toilet Urinal - Constitutional General appearance: Present: mild distress - EENT Eyes: Absent: abnormal pupil - Neck Neck: Absent: lymphadenopathy - Respiratory Respiratory: bilateral: diminished - Cardiovascular Rhythm: regular Heart sounds: normal: S1, S2 Abnormal Heart Sounds: Absent: S3 Gallop - Gastrointestinal General gastrointestinal: Present: soft. Absent: tenderness - Integumentary Integumentary: Absent: cellulitis - Labs CBC & Chem 7: 03/08/21 05:59 03/08/21 05:59 Labs: Abnormal Lab Results - Last 24 Hours (Table) 03/08/21 03/08/21 03/09/21 Range/Units 05:59 05:59 06:33 WBC 12.17 H (4.50-10.00) X 10*3/uL RDW 15.8 H (11.5-14.5) % Absolute Nucleated RBC 0.02 H (0.00-0.00) X 10*3/uL Metamyelocytes % 3 H (0-0) % Neutrophils # (Manual) 10.72 H (2.00-8.90) X 10*3/uL Lymphocytes # (Manual) 0.87 L (0.90-5.00) X 10*3/uL Eosinophils # (Manual) 0 L (0.04-0.35) X 10*3/uL NRBC/100 WBC Diff 0.2 H (0.0-0.0) /100 WBCS D-Dimer 1.05 H (<0.60) mg/L FEU BUN 32.0 H (9.0-27.0) mg/dL BUN/Creatinine Ratio 53.33 H (12.00-20.00) Ratio Calcium 8.0 L (8.7-10.3) mg/dL Assessment and Plan (1) Pneumonia due to COVID-19 virus Current Visit: Yes Status: Acute Code(s): U07.1 - COVID-19; J12.82 - Pneumonia due to coronavirus disease 2019 SNOMED Code(s): 448207976022097083 (2) DVT (deep venous thrombosis) Current Visit: Yes Status: Acute Code(s): I82.409 - ACUTE EMBOLISM AND THOMBOS UNSP DEEP VN UNSP LOWER EXTREMITY SNOMED Code(s): 902984441 Plan: He seems to have appropriate trajectory for recovery. Check CBC and CMP in a.m. Appropriate protocol for Covid pneumonia. The patient is slowly improving which could be typical for this disease state. Significant prognostic improvement. Continue anticoagulation. I'm actually anticipating discharge in the next 48
[2021-03-09] MEDS: ASCORBIC ACID 500 MG TAB PO SCH ×2 (08:38→21:46)
[2021-03-09] MEDS: ZINC SULFATE 220 MG CAP PO SCH (08:38)
[2021-03-09] MEDS: APIXABAN 5 MG TAB PO SCH ×2 (08:38→21:46)
[2021-03-09] MEDS: CHOLECALCIFEROL 25 MCG (1000 IU) TABLET PO SCH (08:38)
[2021-03-09] MEDS: dexAMETHasone 4 MG TAB PO SCH (08:38)
[2021-03-09] MEDS: ALPRAZolam 0.5 MG TAB PO PRN ×2 (08:41→21:54)
[2021-03-09 10:28] LABS: C Reactive Protein 0.5 mg/dL (0.0-0.8)
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
[2021-03-09] MEDS: LOSARTAN 50 MG TAB PO SCH (21:46)
[2021-03-09] MEDS: ZOLPIDEM 10 MG TAB PO PRN (21:54)
[2021-03-10] MEDS: ALPRAZolam 0.5 MG TAB PO PRN ×4 (03:09→21:17)
--- NOTE | 2021-03-10 08:16 | P.PN ---
Subjective Principal diagnosis: The patient is here essentially for Covid 19 pneumonia. The patient has been slowly improving. But complains of significant fatigue. The patient states no nausea or vomiting. No fever yesterday. No other voiding difficulties. Appreciate multiple consultants input. The patient has been resting comfortably but realizes still significant weakness due to hypoxia The patient has been transferred to third floor secondary to his hypoxia Over the last 48 hours, oxygen need has decreased which is excellent. Trajectory of recovery has improved. The patient seems to be stable and speaking conversationally with minimal distress The patient is stable on 5 L Objective - Vital Signs Vital signs: Vital Signs Temp 97.6 F 03/10/21 06:00 Pulse 101 H 03/10/21 06:00 Resp 19 03/10/21 06:00 BP 134/87 03/10/21 06:00 Pulse Ox 92 L 03/10/21 06:00 Intake & Output 03/09/21 03/10/21 03/10/21 18:59 06:59 18:59 Other: Voiding Method Toilet Toilet - Constitutional General appearance: Present: mild distress, obese - EENT Eyes: Absent: abnormal pupil - Neck Neck: Absent: lymphadenopathy - Respiratory Respiratory: right: wheezing, left: CTA - Cardiovascular Rhythm: regular Heart sounds: normal: S1, S2 Abnormal Heart Sounds: Absent: S3 Gallop - Gastrointestinal General gastrointestinal: Present: soft. Absent: tenderness - Integumentary Integumentary: Present: normal - Neurologic Neurologic: Present: CNII-XII intact - Labs CBC & Chem 7: 03/08/21 05:59 03/08/21 05:59 Labs: Abnormal Lab Results - Last 24 Hours (Table) 03/09/21 Range/Units 06:33 Lactate Dehydrogenase 409 H (120-246) U/L Assessment and Plan (1) Pneumonia due to COVID-19 virus Current Visit: Yes Status: Acute Code(s): U07.1 - COVID-19; J12.82 - Pneumonia due to coronavirus disease 2019 SNOMED Code(s): 583363463822813117 (2) DVT (deep venous thrombosis) Current Visit: Yes Status: Acute Code(s): I82.409 - ACUTE EMBOLISM AND THOMBOS UNSP DEEP VN UNSP LOWER EXTREMITY SNOMED Code(s): 969851214 Plan: He seems to have appropriate trajectory for recovery. Check CBC and CMP in a.m. Appropriate protocol for Covid pneumonia. The patient is slowly improving which could be typical for this disease state. Significant prognostic improvement. Continue anticoagulation. I'm actually anticipating discharge in the next 24 hours
[2021-03-10] MEDS: dexAMETHasone 4 MG TAB PO SCH (09:03)
[2021-03-10] MEDS: ASCORBIC ACID 500 MG TAB PO SCH ×2 (09:03→21:17)
[2021-03-10] MEDS: CHOLECALCIFEROL 25 MCG (1000 IU) TABLET PO SCH (09:03)
[2021-03-10] MEDS: APIXABAN 5 MG TAB PO SCH ×2 (09:03→21:17)
[2021-03-10] MEDS: ZINC SULFATE 220 MG CAP PO SCH (09:03)
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
[2021-03-10] MEDS: ZOLPIDEM 10 MG TAB PO PRN (21:17)
[2021-03-10] MEDS: LOSARTAN 50 MG TAB PO SCH (21:17)
[2021-03-11] MEDS: ALPRAZolam 0.5 MG TAB PO PRN ×2 (04:12→09:01)
[2021-03-11] MEDS: ASCORBIC ACID 500 MG TAB PO SCH (08:11)
[2021-03-11] MEDS: dexAMETHasone 4 MG TAB PO SCH (08:11)
[2021-03-11] MEDS: ZINC SULFATE 220 MG CAP PO SCH (08:11)
[2021-03-11] MEDS: CHOLECALCIFEROL 25 MCG (1000 IU) TABLET PO SCH (08:11)
[2021-03-11] MEDS: APIXABAN 5 MG TAB PO SCH (08:11)
[2021-03-11 10:20] VITALS: BP 131/87; PULSE 116; RESP 16; TEMP 98.6
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
== END 2021-03-11 11:59 | disposition home health service (06) | DRG 177 ==
LOC: EC 06:00 → 4SSUR 07:54 → 6NMEDSUR 12:09 → 3SCARD 02-19 15:07 → 4SSUR 02-24 10:49
PROVIDERS: ADMIT Family Medicine; ATTEND Family Medicine
PROC: XW033E5 Introduction of Remdesivir Anti-infective into Peripheral Vein, Percutaneous Approach, New Technology Group 5 (ICD-10-PCS; 2021-02-13)
PROC: XW13325 Transfusion of Convalescent Plasma (Nonautologous) into Peripheral Vein, Percutaneous Approach, New Technology Group 5 (ICD-10-PCS; 2021-02-13)
PROC: 3E0333Z Introduction of Anti-inflammatory into Peripheral Vein, Percutaneous Approach (ICD-10-PCS; 2021-02-13)
PROC: XW033H5 Introduction of Tocilizumab into Peripheral Vein, Percutaneous Approach, New Technology Group 5 (ICD-10-PCS; principal; 2021-02-14)
PROC: 5A0955A Assistance with Respiratory Ventilation, Greater than 96 Consecutive Hours, High Flow/Velocity Cannula (ICD-10-PCS; 2021-03-04)
DX: U07.1 COVID-19 (principal); J12.82 Pneumonia due to coronavirus disease 2019; J96.01 Acute respiratory failure with hypoxia; I82.432 Acute embolism and thrombosis of left popliteal vein; Z68.41 Body mass index [BMI] 40.0-44.9, adult; K21.9 Gastro-esophageal reflux disease without esophagitis; Z87.09 Personal history of other diseases of the respiratory system; E78.5 Hyperlipidemia, unspecified; I10 Essential (primary) hypertension; M19.90 Unspecified osteoarthritis, unspecified site; Z87.891 Personal history of nicotine dependence; I45.10 Unspecified right bundle-branch block; Z79.01 Long term (current) use of anticoagulants; E66.9 Obesity, unspecified; Z68.35 Body mass index [BMI] 35.0-35.9, adult; M54.81 Occipital neuralgia; Z88.0 Allergy status to penicillin; Z82.49 Family history of ischemic heart disease and other diseases of the circulatory system; Z83.3 Family history of diabetes mellitus; G47.00 Insomnia, unspecified; K59.00 Constipation, unspecified; D72.810 Lymphocytopenia
CPT/HCPCS: 36415; 71045; 71275; 80048; 80053; 82728; 83605; 83615; 83735; 84145; 84484; 85025; 85027; 85379; 85610; 85730; 86140; 86850; 86900; 86901; 87040; 87635; 93005; 93970; 94760; 99285

== ENCOUNTER → 2021-05-04 | Outpatient (CLI) | payer OTHER ==
--- NOTE | 2021-05-04 12:38 | ECHOF ---
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 This was a technically adequate study. LV size, wall thickness and systolic function are normal, with an EF greater than 55%. The left oziel tricular size is normal. The diastolic filling pattern is normal for the age of the patient 9.66. The right ventricle is normal in size. The left atrial size is normal. The right atrial size is normal. The aortic valve is trileaflet, and appears structurally normal. No aortic stenosis or regurgitation. The mitral valve is normal. Mild mitral regurgitation is present. The tricuspid valve appears structurally normal. Mild tricuspid regurgitation present. Right vent ricular systolic pressure is normal at < 35 mmHg. There is no pulmonic regurgitation present. The aortic root size is normal. There is no pericardial effusion. CONCLUSIONS -------- 1. LV size, wall thickness and systolic function are normal, with an EF greater than 55%. 2. The left ventricular size is normal. 3. The left atrial size is normal. 4. The aortic valve is trileaflet, and appears structurally normal. No aortic stenosis or regurgitati on. 5. Mild mitral regurgitation is present. 6. Mild tricuspid regurgitation present. 7. There is no pericardial effusion. INGREDIENT SCALER HELPER: Martha Olsen RDCS
== END | disposition home or self-care (01) ==
LOC: RADECHMAIN 11:13
PROVIDERS: ATTEND Internal Medicine
DX: I08.1 Rheumatic disorders of both mitral and tricuspid valves (principal); I27.23 Pulmonary hypertension due to lung diseases and hypoxia; I27.81 Cor pulmonale (chronic)
CPT/HCPCS: 93306

== ENCOUNTER → 2021-09-02 | Outpatient (CLI) | payer OTHER ==
--- NOTE | 2021-09-02 11:21 | CT ---
CT CHEST FOR PULMONARY EMBOLISM. EXAMINATION TYPE: CT angio chest DATE OF EXAM: 09/02/2021 INDICATION: PE CT DLP: 498.6 mGycm, Automated exposure control for dose reduction was used. CONTRAST: Patient injected with 100 ml mL of Isovue 370. COMPARISON: 02/27/2021 TECHNIQUE: CT of the chest is performed on a spiral scan at 2 mm thick sections. Study is performed with intravenous contrast timed for evaluation for pulmonary embolism. This will limit additional po rtions of the evaluation. 3-D MIP images reconstructed by the technologist are reviewed on the compu ter in the coronal and sagittal planes. FINDINGS: No persistent filling defects are evident to suggest an acute pulmonary embolism. No mediastinal or hilar adenopathy enlarged by CT criteria is evident. There are scattered small nod es within the mediastinum The ascending aorta diameter at the level of the main pulmonary artery is 2 .2 cm. The main pulmonary artery diameter at the bifurcation is 2.8 cm. There is some mild patchy infiltrate in the upper lung chaudhary. This is nonspecific. Consider atelecta sis or atypical pneumonia. This is significantly improved from the comparison study. Limited CT section through the upper abdomen are unremarkable. Lap Band is present. Cortical renal cy sts on the right kidney. IMPRESSIONS: 1. Acute pulmonary embolism. 2. Mild scattered infiltrates greater in the upper lung chaudhary are nonspecific and can be related to atelectasis or atypical pneumonia. Previous infiltrates have largely resolved.
== END | disposition home or self-care (01) ==
LOC: RADCTMAIN 10:09
PROVIDERS: ATTEND Internal Medicine
DX: I26.99 Other pulmonary embolism without acute cor pulmonale (principal)
CPT/HCPCS: 71275; Q9967

== ENCOUNTER → 2021-10-19 | Outpatient (CLI) | payer OTHER ==
[~2021-10-19] MED LIST changes: -LACTATED RINGERS 1,000 ML IV SCH; +REGADENOSON 0.4 MG/5 ML SYRINGE IV PRN
--- NOTE | 2021-10-19 11:19 | NM ---
EXAMINATION TYPE: NM stress lexiscan cardiolite DATE OF EXAM: 10/19/2021 COMPARISON: CTA chest September 02, 2021 HISTORY: Dyspnea. TECHNIQUE: After the intravenous administration of 9.7 mCi Tc 99m Sestamibi - Cardiolite resting SPE CT images acquired 45 minutes post injection. The patient received 0.4mg Lexiscan, 25.5 mCi Tc 99m Sestamibi - Stress images obtained [address] injection FINDINGS: Review of stress and rest SPECT images demonstrates no distinct perfusion abnormality. Gated analysi s shows normal wall motion with an estimated left ventricular ejection fraction of 66 %. IMPRESSION: No scintigraphic evidence for reversible ischemia.
--- NOTE | 2021-10-19 15:43 | EST ---
EXERCISE STRESS AGE: 50 SEX: M HT: 5'8" WT: 245 lbs. PROTOCOL: Lexiscan STAGE: NA DURATION OF EXERCISE: 5 minutes HEART RATE REST: 70 BLOOD PRESSURE REST: 144/102 MAXIMUM HEART RATE ACHIEVED: 85 MAXIMUM BLOOD PRESSURE: 146/97 85% MPHR: 145 100% MPHR: 171 METS: NA INDICATIONS: Dyspnea CLINICAL INFORMATION: Pretesting physical examination showed a heart rate of 70, pressure 144/102 mmHg. Baseline EKG showed sinus mechanism. The patient exercised was given 0.4 mg of Lexiscan over 15 seconds per protocol. Max heart rate was 85 beats per minute and maximum pressure was 145/94 mmHg. Clinically the patient did not have any symptoms. The EKG did not show any significant ST or T-wave abnormalities concerning for ischemia. CONCLUSION: 1. Nondiagnostic electrocardiogram stress testing in response to Lexiscan. 2. Please follow up on the Cardiolite portion on a separate report from Radiology Department. MMODL / IJN: [id number] /
== END | disposition home or self-care (01) ==
LOC: RADNMMAIN 07:42
PROVIDERS: ATTEND Family Medicine
DX: R06.00 Dyspnea, unspecified (principal)
CPT/HCPCS: 93017; 78452; A9500; J2785